=== PATIENT | male | born 1975 | race Caucasian/White ===

== ENCOUNTER 2019-10-02 00:44 | Inpatient (IN) | payer OTHER ==
[2019-10-02] MEDS ORDERED: Pantoprazole 40 MG VIAL ONE ×2 (01:13→01:14)
[2019-10-02 01:19] LABS: Hemoglobin 9.1 g/dL (14.0-18.0); Mean Corpuscular HGB CONC 32.9 g/dL (32.0-36.0); Mean Corpuscular Hemoglobin 26.2 pg (27.0-31.0); Mean Corpuscular Volume 79.7 fL (78.0-98.0); Mean Platelet Volume 6.9 fL (7.4-10.4); Platelet Count 232 thou/uL (130-400); RBC Distribution Width 16.3 % (11.5-14.5); Red Blood Cell (RBC) Count 3.48 mill/uL (4.70-6.10); White Blood Cell (WBC) Count 2.9 thou/uL (4.8-10.8)
[2019-10-02 01:29] LABS: Eosinophils 7 % (0-10); Lymphocytes 42 % (21-51); MDiff Complete? YES; Metamyelocyte 1 % (0-0); Monocytes 11 % (0-10); Neutrophil 38 % (42-75); Platelet Morphology Comment Appears Adequate
[2019-10-02] MEDS ORDERED: Dextrose 5 % And 0.9 % NaCl 1,000 ML IV SCH (03:15)
[2019-10-02 03:24] VITALS: BMI 33.5
[2019-10-02] MEDS ORDERED: Ondansetron PF 4 MG/2 ML Vial IVP PRN (03:28)
[2019-10-02] MEDS ORDERED: Ondansetron ODT 4 MG TAB PO PRN (03:28)
[2019-10-02] MEDS ORDERED: Acetaminophen 500 MG TAB PO PRN (03:28)
[2019-10-02] MEDS ORDERED: hydrALAZINE 20 MG/ML VIAL SLOW IVP PRN (03:28)
[2019-10-02] MEDS ORDERED: Lorazepam 2 MG/ML VIAL SLOW IVP PRN ×2 (03:28→07:46)
[2019-10-02] MEDS ORDERED: Sodium Chloride 0.9% (PF) 10 ML VIAL FS PRN ×2 (03:36→17:05)
[2019-10-02] MEDS ORDERED: Sucralfate 1 GM TAB PO PRN (03:58)
[2019-10-02] MEDS ORDERED: Nicotine 21 MG PATCH TD SCH (04:00)
[2019-10-02] MEDS: Multivitamins, Adult 10 ML, Folic Acid 1 MG, Thiamine HCl 100 MG in Dextrose 5 %-0.45 %... IV SCH (04:11)
[2019-10-02] MEDS: Sodium Chloride 0.9% 1,000 ML IV SCH ×3 (04:11→20:42)
--- NOTE | 2019-10-02 04:28 | HP ---
PRIMARY CARE PROVIDER: [facility], [place], [place]. CHIEF COMPLAINT: Alcohol use. HISTORY OF PRESENT ILLNESS: This is a 44-year-old male who presents to [facility] Emergency Department stating he would like to receive assistance in detoxification of alcohol. The patient admits to chronic alcoholism with last alcohol intake on 10/01/2019. The patient states he has tried several different options for alcohol detoxication including an admission in July 2019 at [facility]. The patient also went through a program in [place], [place] through the [place] system; however, states these were unsuccessful and long-term abstinence. The patient did admit to dark emesis concerning for blood in the last 24 hours. The patient also states he has had dark stools over the last 3 to 4 days. The patient admits to difficulty coming off alcohol, experiencing symptoms of withdrawal within 6-8 hours after discontinuation of the alcohol. The patient denied any fever, chills, chest pain, unilateral weakness, travel history, or family members with similar symptoms. In the emergency room, the patient underwent general evaluation with initial alcohol level noted at 366. The patient received lorazepam in the emergency room in addition to intravenous normal saline and IV Protonix. PAST MEDICAL HISTORY: 1. Chronic alcoholism. 2. Alcohol withdrawal syndrome. 3. Urinary retention. 4. Peripheral neuropathy. 5. Insomnia. 6. PTSD. PAST SURGICAL HISTORY: 1. Status post appendectomy. 2. Status post right knee surgery. 3. Status post hernia repair. 4. Status post ganglion cyst of the left arm. 5. Status post bilateral wrist surgery. PAST PSYCHIATRIC HISTORY: Positive depression, anxiety, and posttraumatic stress disorder. CURRENT MEDICATIONS: 1. Gabapentin 200 mg p.o. b.i.d. and 600 mg p.o. at bedtime. 2. Melatonin 5 mg p.o. at bedtime. 3. Valtrex 50 mg p.o. daily. 4. Omeprazole 20 mg p.o. b.i.d. 5. Propranolol 40 mg p.o. b.i.d. 6. Carafate 1 g p.o. b.i.d. p.r.n. 7. Flomax 0.4 mg p.o. daily. 8. Multivitamin 1 tablet p.o. daily. 9. Protonix 40 mg p.o. daily. 10. Vitamin B1 at 100 mg p.o. daily. FAMILY HISTORY: No inheritable diseases per the patient report. SOCIAL HISTORY: The patient resides in [facility]. Smokes up to a pack of cigarettes daily. Drinks 10+ beers daily. No illicit drug use. Accompanied by his mother in the hospital. [place] the [place]. ALLERGIES: ERYTHROMYCIN. REVIEW OF SYSTEMS: CONSTITUTIONAL: Negative for weight loss or gain, ability to conduct usual activities. SKIN: Negative for rash, itching. EYES: Negative for double vision, pain. ENT/MOUTH: Negative for nose bleeding, neck stiffness, pain, tenderness. CARDIOVASCULAR: Negative for palpitations, dyspnea on exertion, orthopnea. RESPIRATORY: Negative for shortness of breath, wheezing, cough, hemoptysis, fever or night sweats. GASTROINTESTINAL: Negative for poor appetite, abdominal pain, heartburn, nausea , vomiting, constipation, or diarrhea. GENITOURINARY: Negative for urgency, frequency, dysuria, nocturia. MUSCULOSKELETAL: Negative for pain, swelling. NEUROLOGIC/PSYCHIATRIC: Negative for anxiety, depression. ALLERGY/IMMUNOLOGIC: Negative for skin rash, bleeding tendency. Otherwise negative except as stated per HPI. PHYSICAL EXAMINATION: VITAL SIGNS: On admission, blood pressure 131/74, pulse 124, respiratory rate 20, temperature 98.7 degrees Fahrenheit, O2 saturation 95% on room air. GENERAL APPEARANCE: This is a 44-year-old male, alert and oriented x3 , pleasant, responsive, in no acute distress. HEENT: Pupils are equal, round, reactive to light and accommodation. Extraocular muscles are intact. No scleral icterus. No conjunctival injection. Nares are patent. OP is clear. Teeth in fair repair. NECK: Supple. No cervical adenopathy. No thyromegaly. No carotid bruits. No JVD appreciated. Cervical spine with full active and passive range of motion. No meningeal signs noted. CHEST: Lungs are clear to auscultation bilaterally. CARDIOVASCULAR: S1, S2 with tachycardia. No murmur, rub, or gallop appreciated. ABDOMEN: Obese, soft, nontender, and nondistended. Bowel sounds are positive in all 4 quadrants. There is no hepatosplenomegaly. No abdominal bruits. No rebound or guarding appreciated. EXTREMITIES: Warm and dry with fair turgor. No clubbing, cyanosis, or asymmetric edema appreciated. Pulses are palpable distally at the dorsalis pedis, posterior tibial, and popliteal arteries bilaterally. Capillary refill less than 2 seconds. NEUROLOGIC: Cranial nerves 2 through 12 are grossly intact. No focal or lateralizing signs appreciated. PERTINENT LABORATORY AND X-RAY FINDINGS: Basic metabolic profile within normal limits. Magnesium level 2.2, AST 109, ALT of 91, alkaline phosphatase 80. Troponin I negative x1. Albumin 4.5. CBC showed a white blood cell count 2.9, hemoglobin 9.1, hematocrit 28, MCV 80, platelet count 232 with 38% neutrophils. Plasma alcohol level 366. EKG dated 10/01/2019, by my interpretation shows sinus tachycardia with heart rates in the 120s. Normal R-wave progression noted in the precordial leads. Normal axis. No acute ST-T wave changes appreciated. ASSESSMENT/PLAN: 1. Acute alcohol intoxication. The patient will be admitted to the telemetry unit. We will continue to monitor for alcohol withdrawal syndrome. Continue Ativan 2 mg IV q.4 hours p.r.n. withdrawal symptoms. Continue banana bag at 125 mL/h. 2. Chronic alcoholism. Consult Case Management for inpatient alcohol detoxification facilities. See #1 above. 3. Gastrointestinal bleed. Suspected given patient's presentation. Continue serial hemoglobin monitoring. Protonix 40 mg IV q.12 hours. Consult GI Service for evaluation. Check stool guaiac. 4. Sinus tachycardia. Suspect multifactorial including possible gastrointestinal bleed. Continue IV fluids as outlined previously. Telemetry monitoring. 5. Peripheral neuropathy. Continue gabapentin and monitor clinical response. 6. Prophylaxis. Sequential compression devices while in bed. Protonix 40 mg IV b.i.d. 7. Code status is full. Surrogate medical decision maker is the patient's mother. Job ID: [id number] [facility]
[2019-10-02 07:03] LABS: Hemoglobin 8.9 g/dL (14.0-18.0); Mean Corpuscular HGB CONC 32.6 g/dL (32.0-36.0); Mean Corpuscular Hemoglobin 26.2 pg (27.0-31.0); Mean Corpuscular Volume 80.6 fL (78.0-98.0); Mean Platelet Volume 7.3 fL (7.4-10.4); Platelet Count 249 thou/uL (130-400); RBC Distribution Width 16.4 % (11.5-14.5); Red Blood Cell (RBC) Count 3.38 mill/uL (4.70-6.10); White Blood Cell (WBC) Count 3.2 thou/uL (4.8-10.8)
[2019-10-02 07:18] LABS: ALT (SGPT) 64 U/L (8-55); AST (SGOT) 72 U/L (5-34); Albumin 3.8 g/dL (3.5-5.0); Alkaline Phosphatase 69 U/L (40-110); Anion Gap 14 mmol/L (10-20); BUN (Urea Nitrogen) 8 mg/dL (8.9-20.6); Bilirubin, Total 0.4 mg/dL (0.2-1.2); Calc. Creatinine Clearance 201 mL/min (70-130); Calcium 7.9 mg/dL (7.8-10.44); Carbon Dioxide 26 mmol/L (22-29); Chloride 106 mmol/L (98-107); Estimated GFR-MDRD Greater than 90; Globulin 2.9 g/dL (2.4-3.5); Glucose 114 mg/dL (70-105); Potassium 3.6 mmol/L (3.5-5.1); Protein, Total 6.7 g/dL (6.0-8.3); Sodium 142 mmol/L (136-145)
[2019-10-02 08:05] LABS: Eosinophils 2 % (0-10); Hypochromia SLIGHT = 6-15 cells (100X) (0-5/hpf); Large Platelets SLIGHT; Lymphocytes 48 % (21-51); MDiff Complete? YES; Monocytes 13 % (0-10); Neutrophil 36 % (42-75); Platelet Morphology Comment Appears Adequate
[2019-10-02] MEDS: Propranolol 40 MG TAB PO SCH ×2 (08:36→20:42)
[2019-10-02] MEDS: Naltrexone Hcl [Naltrexone Hcl] 50 MG PO SCH (08:36)
[2019-10-02] MEDS: Lorazepam 1 MG TAB PO PRN ×2 (08:36→12:36)
[2019-10-02] MEDS: Finasteride 5 MG TAB PO SCH (08:36)
[2019-10-02] MEDS: chlordiazePOXIDE HCl 25 MG CAP PO SCH ×3 (08:36→20:42)
[2019-10-02] MEDS: Tamsulosin HCl 0.4 MG CAP PO SCH (08:36)
[2019-10-02] MEDS: Gabapentin 100 MG CAP PO SCH ×2 (08:36→11:49)
[2019-10-02] MEDS ORDERED: Pantoprazole 40 MG VIAL IVP SCH (09:00)
--- NOTE | 2019-10-02 16:55 | CON ---
DATE OF CONSULTATION: 10/02/2019 CHIEF COMPLAINT: Dark stools and alcohol withdrawal. HISTORY OF PRESENT ILLNESS: Mr. Fields is a 44-year-old , who presented to the emergency room today wanting to detox. He has been drinking half a gallon of whiskey or so of alcohol daily. Whenever he goes a few hours without drinking, he gets the shakes so badly and he cannot completely stop alcohol. He was hospitalized at the [place] in [place] 5 or 6 months ago. He had some coffee-grounds emesis at that time and underwent upper endoscopy and was told that he had an ulcer and some red spots in his stomach. He reports a biopsy was done for H pylori, but is unsure of the results. He was never treated for H pylori. He also had a flex sig done at that time and was told that he had some hemorrhoids. He also has had some intermittent nausea and vomiting with some dark material. He reports a week ago he went several days with dark stools for 3 or 4 times per day and that stopped two days ago. He has had no diarrhea or constipation otherwise. No weight changes. No fever. No chest pain or shortness of breath. PAST MEDICAL HISTORY: Alcohol abuse and history of DTs, PTSD, insomnia, peripheral neuropathy, history of gastric ulcer per his report. PAST SURGICAL HISTORY: Appendectomy, knee surgery, hernia repair, cyst removed from the left wrist. FAMILY HISTORY: Negative for GI malignancy. SOCIAL HISTORY: He smokes up to a pack a day. He drinks half a gallon of whiskey per day. He drinks beer as well. No drugs. He is . He has a 13-year-old daughter. He is a [place] . ALLERGIES: ERYTHROMYCIN. MEDICATIONS PRIOR TO ADMISSION: Omeprazole 20 mg daily. He reports he takes this may be 2 times per week if he takes it. He states that he is on multiple other medications for PTSD, which he takes about as often as he takes the pantoprazole. He states that he stays up all night drinking and then the next day pretty much forgets to take most of his medications. REVIEW OF SYSTEMS: Negative x10 systems reviewed except as stated in the history of present illness. PHYSICAL EXAMINATION: VITAL SIGNS: Temperature 98.1, pulse 90, blood pressure 142/96. GENERAL: He is in no acute distress. Alert and oriented x3. HEENT: Eyes have no scleral icterus. Oropharynx is clear without lesions. LYMPH NODES: No cervical or supraclavicular lymphadenopathy. LUNGS: Clear to auscultation bilaterally. HEART: Regular rate and rhythm without murmur. ABDOMEN: Soft, nontender, and nondistended. Bowel sounds are present. NEUROLOGIC: He does have a tremor, more with his right hand. EXTREMITIES: No lower extremity edema. RECTAL: Reveals light brown stool in the rectal vault. LABORATORY DATA: White blood cell count 3.2, hemoglobin 8.9, platelets 249. Creatinine 0.75, bilirubin 0.4. AST 72, ALT 64, alkaline phosphatase 69. Lipase 121. IMPRESSION: 1. Acute alcohol intoxication. Last night, his plasma alcohol was 366. 2. Alcohol withdrawal syndrome. He has tremors now. He has had delirium tremens in the past. He is wanting to stop alcohol now. 3. Dark stools last week. Currently, he has a light brown, not bloody stool. Given the reported gastric ulcer 5 to 6 months ago and anemia, followup endoscopy should be performed. However, there is no urgency to this as he has no overt bleeding and we should wait until after he gets through delirium tremens to do this, and that could potentially be done outpatient. 4. Anemia. He has slightly microcytic anemia despite alcohol use. We will check iron studies. RECOMMENDATIONS: 1. Proton pump inhibitor. This can be given orally daily at this point as there are no signs of overt bleeding. 2. We will advance to a regular diet. 3. Plan followup EGD in the future in light of the reported history of gastric ulcer. If he is iron deficient, then he should have a full colonoscopy as well. 4. Withdrawal precautions for DTs. 5. Multiple vitamin with folate and thiamine. 6. Request records from last endoscopy at the [facility]. Job ID: [id number]
[2019-10-02] MEDS: Gabapentin 300 MG CAP PO SCH (20:42)
[2019-10-02] MEDS: Melatonin 3 MG TAB PO SCH (20:42)
[2019-10-02] MEDS: Nicotine 21 MG PATCH TD SCH (20:47)
[2019-10-03] MEDS: Multivitamins, Adult 10 ML, Folic Acid 1 MG, Thiamine HCl 100 MG in Dextrose 5 %-0.45 %... IV SCH (04:24)
[2019-10-03] MEDS: Sodium Chloride 0.9% 1,000 ML IV SCH (04:28)
[2019-10-03 05:25] LABS: Eosinophils 3 % (0-10); Hypochromia SLIGHT = 6-15 cells (100X) (0-5/hpf); Lymphocytes 44 % (21-51); MDiff Complete? YES; Mean Corpuscular HGB CONC 31.4 g/dL (32.0-36.0); Mean Corpuscular Hemoglobin 25.4 pg (27.0-31.0); Mean Platelet Volume 7.4 fL (7.4-10.4); Metamyelocyte 1 % (0-0); Monocytes 9 % (0-10); Neutrophil 43 % (42-75); Platelet Count 246 thou/uL (130-400); Platelet Morphology Comment Appears Adequate; RBC Distribution Width 16.2 % (11.5-14.5); Red Blood Cell (RBC) Count 3.54 mill/uL (4.70-6.10)
[2019-10-03] MEDS ORDERED: 1/2 NS w/KCL 20 mEq 1,000 ML IV SCH (08:30)
[2019-10-03] MEDS: chlordiazePOXIDE HCl 25 MG CAP PO SCH ×3 (08:56→20:37)
[2019-10-03] MEDS: Propranolol 40 MG TAB PO SCH ×2 (08:57→20:38)
[2019-10-03] MEDS: Tamsulosin HCl 0.4 MG CAP PO SCH (08:57)
[2019-10-03] MEDS: Gabapentin 100 MG CAP PO SCH ×2 (08:57→11:17)
[2019-10-03] MEDS: Finasteride 5 MG TAB PO SCH (08:57)
[2019-10-03] MEDS: Naltrexone Hcl [Naltrexone Hcl] 50 MG PO SCH (08:59)
--- NOTE | 2019-10-03 09:00 | PRG ---
DATE OF SERVICE: 10/03/2019 SUBJECTIVE: The patient seen at bedside. Complains of shakiness and tremors with activity. Also as per the patient, symptoms than now. Also being complaining of vomiting this morning as the patient but dark-tinged. Denies any fever, chest pain, or shortness of breath. Not in distress clinically. Says he had dark-colored bowel movement last week. OBJECTIVE: VITAL SIGNS: Blood pressure 136/77, temperature 97.8, pulse 84, respiration 18, and oxygen saturation 97%. GENERAL: The patient lying in bed comfortably, not in distress. HEENT: Conjunctivae normal. Oral mucosa moist. NECK: Supple. No JVD. No lymphadenopathy. Chest: Normal vesicular breathing. HEART: Sounds normal. ABDOMEN: Soft. EXTREMITIES: Negative edema of feet. No rash. No cyanosis. Tremors on extension of hands. LABORATORY DATA: CBC today; hemoglobin 9.0, baseline hemoglobin 9.1, platelet 246, and white blood cell 3.0. IMPRESSION: 1. History of EtOH abuse with possible alcohol withdrawal. Continue alcohol withdrawal protocol. Continue banana bag. Continue fluids. Librium changed to q.6 hourly from q.3. We will continue to monitor clinically. If the patient currently not in DTs, if the patient's symptoms gets worse, will transfer to IMC or ICU. 2. Questionable gastrointestinal bleed. The patient's currently hemoglobin is stable. GI evaluation appreciated. Continue diet. Monitor hemoglobin, currently stable. We will check hemoglobin in the morning. Continue PPI. 3. History of EtOH abuse. Case management consulted for alcohol rehab referral. 4. Deep venous thrombosis and gastrointestinal prophylaxis. PLAN: Discussed with the patient and nursing staff. Job ID: [id number]
[2019-10-03] MEDS: Lorazepam 1 MG TAB PO PRN (11:18)
--- NOTE | 2019-10-03 14:18 | PRG ---
DATE OF SERVICE: 10/03/2019 SUBJECTIVE: Mr. Fields continues to have the shakes. He was unable to eat his breakfast with a fork. He had a brown bowel movement last night. PHYSICAL EXAMINATION: VITAL SIGNS: Temperature 98.6, pulse 85, and blood pressure 118/74. GENERAL: He is in no acute distress. Alert and oriented x3. LUNGS: Clear to auscultation bilaterally. HEART: Regular rate and rhythm without murmur. ABDOMEN: Soft, nontender, nondistended. Bowel sounds are present. EXTREMITIES: No lower extremity edema. LABORATORY DATA: White blood cell count 3.0, hemoglobin 9.0, and platelets 246. Creatinine 0.75, bilirubin 0.4, AST 72, ALT 64, alkaline phosphatase 69, and lipase 121. IMPRESSION: 1. Alcohol withdrawal with ongoing tremors. His last drink was the night before last. He has history of delirium tremens with hallucinations. 2. Anemia and reported melena. He had light brown stool by rectal exam. His hemoglobin remained stable. RECOMMENDATIONS: Check iron studies. If he is iron deficient, he should undergo EGD and colonoscopy. This would be done after resolution of acute alcohol withdrawal. Alternatively, if he has iron deficiency and his hemoglobin remains stable without ongoing signs of overt bleeding, he should potentially undergo these procedures as an outpatient. Job ID: [id number]
[2019-10-03] MEDS: Melatonin 3 MG TAB PO SCH (20:38)
[2019-10-03] MEDS: Gabapentin 300 MG CAP PO SCH (20:38)
[2019-10-03] MEDS: Nicotine 21 MG PATCH TD SCH (20:39)
[2019-10-04] MEDS: chlordiazePOXIDE HCl 25 MG CAP PO SCH ×4 (04:30→21:51)
[2019-10-04] MEDS: Multivitamins, Adult 10 ML, Folic Acid 1 MG, Thiamine HCl 100 MG in Dextrose 5 %-0.45 %... IV SCH (04:30)
[2019-10-04 05:35] LABS: #Basophils 0.1 thou/uL (0.0-0.2); #Eosinphils 0.2 thou/uL (0.0-0.7); #Lymphocytes 1.2 thou/uL (1.20-3.40); #Monocytes 0.5 thou/uL (0.11-0.59); #Neutrophils 1.7 thou/uL (1.40-6.50); %Basophils 2.1 % (0.0-1.0); %Eosinophils 5.5 % (0.0-10.0); %Lymphocytes 32.7 % (21.0-51.0); %Monocytes 12.3 % (0.0-10.0); %Neutrophils 47.4 % (42.0-75.0); Hemoglobin 9.3 g/dL (14.0-18.0); Mean Corpuscular HGB CONC 31.4 g/dL (32.0-36.0); Mean Corpuscular Hemoglobin 25.5 pg (27.0-31.0); Mean Corpuscular Volume 81.2 fL (78.0-98.0); Platelet Count 272 thou/uL (130-400); RBC Distribution Width 16.4 % (11.5-14.5); Red Blood Cell (RBC) Count 3.66 mill/uL (4.70-6.10); White Blood Cell (WBC) Count 3.6 thou/uL (4.8-10.8)
[2019-10-04 05:51] LABS: ALT (SGPT) 47 U/L (8-55); AST (SGOT) 44 U/L (5-34); Albumin 3.9 g/dL (3.5-5.0); Alkaline Phosphatase 67 U/L (40-110); Anion Gap 11 mmol/L (10-20); BUN (Urea Nitrogen) 8 mg/dL (8.9-20.6); Bilirubin, Total 0.5 mg/dL (0.2-1.2); Calc. Creatinine Clearance 179 mL/min (70-130); Calcium 8.9 mg/dL (7.8-10.44); Carbon Dioxide 25 mmol/L (22-29); Chloride 105 mmol/L (98-107); Estimated GFR-MDRD Greater than 90; Globulin 2.9 g/dL (2.4-3.5); Glucose 116 mg/dL (70-105); Iron 15 ug/dL (65-175); Iron Binding Capacity, Total 408 mcg/dL (261-462); Potassium 3.3 mmol/L (3.5-5.1); Protein, Total 6.8 g/dL (6.0-8.3); Sodium 138 mmol/L (136-145)
[2019-10-04] MEDS: Tamsulosin HCl 0.4 MG CAP PO SCH (09:13)
[2019-10-04] MEDS: Propranolol 40 MG TAB PO SCH ×2 (09:13→21:50)
[2019-10-04] MEDS: Gabapentin 100 MG CAP PO SCH ×2 (09:13→11:45)
[2019-10-04] MEDS: Naltrexone Hcl [Naltrexone Hcl] 50 MG PO SCH (09:13)
[2019-10-04] MEDS: Finasteride 5 MG TAB PO SCH (09:13)
[2019-10-04] MEDS ORDERED: Potassium Chloride 20 MEQ TAB PO SCH (10:00)
[2019-10-04] MEDS ORDERED: Docusate 100 MG CAP PO SCH (10:15)
[2019-10-04] MEDS ORDERED: Ferrous Sulfate 325 MG TAB PO SCH (10:15)
--- NOTE | 2019-10-04 10:51 | PRG ---
DATE OF SERVICE: 10/04/2019 SUBJECTIVE: Mr. Fields continues to have the shakes. He has no abdominal pain or nausea or vomiting. OBJECTIVE: VITAL SIGNS: Temperature is 97.8, pulse 70, blood pressure 111/77. GENERAL: He is in no acute distress. Alert and oriented x3. LUNGS: Clear to auscultation bilaterally. HEART: Regular rate and rhythm without murmur. ABDOMEN: Soft, nontender, nondistended. Bowel sounds are present. EXTREMITIES: No lower extremity edema. He has significant tremors of his hands. LABORATORY DATA: White blood cell count 3.6, hemoglobin 9.3, platelets 272, creatinine 0.83. Bilirubin 0.5, AST 44, ALT 47, alkaline phosphatase 67, ferritin 23. Iron 15. TIBC 408. IMPRESSION: 1. Iron deficiency anemia. He just had EGD at the [place] on August 19, which showed grade D severe ulcerative esophagitis. This is the likely source for his anemia. He had a flexible sigmoidoscopy at the same time that showed sigmoid diverticulosis and internal hemorrhoids. He has not been compliant with proton pump inhibitor since that procedure. He has also had ongoing alcohol abuse and smoking. The esophagitis is most likely source for any bleeding and anemia at this point. RECOMMENDATIONS: 1. Proton pump inhibitor. This can be changed to oral twice daily dosing. 2. Alcohol cessation and smoking cessation. 3. Follow up in GI clinic in a month. He can plan for repeat endoscopy at that time to verify healing of the esophagitis and rule out Miramontes's. He did have a biopsy from the esophagus performed at the [place] last month and I have requested that report. When he returns for followup endoscopy, really he should undergo full colonoscopy given the iron deficiency anemia. He just had a flexible sigmoidoscopy to the transverse colon at the [place]. 4. He will follow up in GI clinic in a month to schedule EGD and colonoscopy and maintain outpatient oral proton pump inhibitor until then. I will sign off for now. Please call if GI can be of assistance. Job ID: [id number]
[2019-10-04] MEDS: Lorazepam 1 MG TAB PO PRN ×2 (13:18→23:18)
--- NOTE | 2019-10-04 19:37 | PDOC.HOSPP ---
- Subjective Encounter Date: 10/04/19 Encounter Time: 11:30 Subjective: pt up in bed feels anxious - Objective Vital Signs & Weight: Vital Signs (12 hours) Temp Pulse Resp BP BP BP Pulse Ox 10/04/19 16:00 98.0 F 82 16 122/84 98 10/04/19 12:15 121/78 10/04/19 11:36 96.7 F L 77 16 121/78 99 10/04/19 09:05 111/77 99 10/04/19 09:00 97.8 F 70 16 111/77 95 Weight Weight 242 lb 12.8 oz I&O: 10/03/19 10/04/19 10/05/19 06:59 06:59 06:59 Intake Total 750 960 Balance 750 960 Result Diagrams: 10/04/19 05:22 10/04/19 05:22 Hospitalist ROS - Review of Systems Cardiovascular: denies: chest pain, palpitations, orthopnea, paroxysmal noc. dyspnea, edema, light headedness, other Gastrointestinal: denies: nausea, vomiting, abdominal pain, diarrhea, constipation, melena, hematochezia, other Genitourinary: denies: dysuria, frequency, incontinence, hematuria, retention, other - Medication Medications: Active Medications Generic Name Dose Route Start Last Admin Trade Name Freq PRN Reason Stop Dose Admin Chlordiazepoxide HCl 25 mg 10/03/19 09:00 10/04/19 16:02 Librium PO 25 mg Q6H IDANIA Administration Finasteride 5 mg 10/02/19 09:00 10/04/19 09:13 Proscar PO 5 mg DAILY IDANIA Administration Gabapentin 200 mg 10/02/19 09:00 10/04/19 11:45 Neurontin PO 200 mg 0900,1200 IDANIA Administration Gabapentin 600 mg 10/02/19 21:00 10/03/19 20:38 Neurontin PO 600 mg QPM IDANIA Administration Multivitamins 10 ml/ Folic 1,011.2 mls @ 125 mls/hr 10/02/19 04:30 10/04/19 04:30 Acid 1 mg/ Thiamine HCl 100 mg IV 1,011.2 mls / Dextrose/Sodium Chloride Q24HR IDANIA Administration Lorazepam 1 mg 10/02/19 07:44 10/04/19 13:18 Ativan PO 1 mg Q4H PRN Administration Anxiety/Agitation Melatonin 6 mg 10/02/19 21:00 10/03/19 20:38 Melatonin PO 6 mg HS IDANIA Administration Nicotine 21 mg 10/02/19 21:00 10/03/19 20:39 Nicoderm Patch TD 21 mg Q24HR IDANIA Administration Ondansetron HCl 4 mg 10/02/19 03:28 10/04/19 14:43 Zofran Odt PO 4 mg Q6H PRN Administration Nausea/Vomiting Pantoprazole Sodium 40 mg 10/02/19 21:00 10/04/19 09:13 Protonix PO 40 mg BID IDANIA Administration Naltrexone Hcl [ 0 each 10/02/19 09:00 10/04/19 09:13 Naltrexone Hcl] 50 PO 1 each Mg DAILY IDANIA Administration Propranolol HCl 40 mg 10/02/19 09:00 10/04/19 09:13 Inderal PO 40 mg BID IDANIA Administration Sodium Chloride 10 ml 10/02/19 21:00 10/04/19 09:12 Flush - Normal Saline IVF Not Given Q12HR IDANIA Tamsulosin HCl 0.4 mg 10/02/19 09:00 10/04/19 09:13 Flomax PO 0.4 mg DAILY IDANIA Administration - Exam Heart: negative: RRR, no murmur, no gallops, no rubs, normal peripheral pulses, irregular, diminshed peripheral pulses, murmur present, II/IV, III/IV Respiratory: negative: CTAB, no wheezes, no rales, no ronchi, normal chest expansion, no tachypnea, normal percussion, rales, rhonchi, tachypneic, wheezes Gastrointestinal: negative: soft, non-tender, non-distended, normal bowel sounds , no palpable masses, no hepatomegaly, no splenomegaly, no bruit, no guarding, no rigidity, tender to palpation, distended, diminished bowl sounds, voluntary guarding Hosp A/P (1) Alcohol withdrawal Code(s): F10.239 - ALCOHOL DEPENDENCE WITH WITHDRAWAL, UNSPECIFIED Status: Acute Qualifiers: (2) Depression Code(s): F32.9 - MAJOR DEPRESSIVE DISORDER, SINGLE EPISODE, UNSPECIFIED Status : Acute (3) GI bleed Code(s): K92.2 - GASTROINTESTINAL HEMORRHAGE, UNSPECIFIED Status: Acute - Plan hh is stable, will monitor for one more day and then discharge him home in am. spoke with case management who [facility] get [facility] if he wants inpatient detox. He has been advised against drinking.
[2019-10-04] MEDS: Gabapentin 300 MG CAP PO SCH (21:49)
[2019-10-04] MEDS: Melatonin 3 MG TAB PO SCH (21:49)
[2019-10-04] MEDS: Docusate 100 MG CAP PO SCH (21:50)
[2019-10-04] MEDS: Nicotine 21 MG PATCH TD SCH (21:50)
[2019-10-05] MEDS: Multivitamins, Adult 10 ML, Folic Acid 1 MG, Thiamine HCl 100 MG in Dextrose 5 %-0.45 %... IV SCH (03:40)
[2019-10-05] MEDS: chlordiazePOXIDE HCl 25 MG CAP PO SCH ×2 (03:40→09:12)
[2019-10-05 06:08] LABS: Band 2 % (5-11); Eosinophils 1 % (0-10); Hemoglobin 9.4 g/dL (14.0-18.0); Hypochromia SLIGHT = 6-15 cells (100X) (0-5/hpf); Lymphocytes 26 % (21-51); MDiff Complete? YES; Mean Corpuscular HGB CONC 32.1 g/dL (32.0-36.0); Mean Corpuscular Hemoglobin 26.1 pg (27.0-31.0); Mean Corpuscular Volume 81.3 fL (78.0-98.0); Mean Platelet Volume 7.8 fL (7.4-10.4); Monocytes 4 % (0-10); Neutrophil 67 % (42-75); Platelet Count 280 thou/uL (130-400); Platelet Morphology Comment Appears Adequate; RBC Distribution Width 16.5 % (11.5-14.5)
[2019-10-05 07:37] VITALS: TEMP 97.4
[2019-10-05] MEDS ORDERED: Ferrous Sulfate 325 MG TAB PO SCH (08:00)
[2019-10-05] MEDS: Docusate 100 MG CAP PO SCH (09:12)
[2019-10-05] MEDS: Finasteride 5 MG TAB PO SCH (09:12)
[2019-10-05] MEDS: Gabapentin 100 MG CAP PO SCH ×2 (09:13→12:23)
[2019-10-05] MEDS: Tamsulosin HCl 0.4 MG CAP PO SCH (09:13)
[2019-10-05] MEDS: Propranolol 40 MG TAB PO SCH (09:13)
[2019-10-05] MEDS: Naltrexone Hcl [Naltrexone Hcl] 50 MG PO SCH (09:13)
[2019-10-05 11:58] VITALS: BP 109/71
--- NOTE | 2019-10-05 13:54 | DIS ---
DATE OF ADMISSION: 10/02/2019 DATE OF DISCHARGE: 10/05/2019 DISCHARGE DIAGNOSES: 1. Alcohol withdrawal. 2. Depression. 3. Possible gastrointestinal bleed. HOSPITAL COURSE: The patient is a 44-year-old male, who initially presented to the hospital on 10/03/2019 with complaints of alcohol abuse and he also had mention during his admission that possible he had some GI bleed. He was seen by GI Services. His H and H continued to remain stable. The patient was seen by GI, who recommended to follow up as an outpatient. There were some concerns of possible this patient has had esophagitis with possible Miramontes's. However, he will need repeat EGD as an outpatient. Recommended to continue the PPI for twice a day in conjunction with the Carafate and cessation from alcohol, which I have talked with the patient. Given the fact that the patient is at [facility], I have asked him to follow up with the [facility] for resources for inpatient detox. He currently is asymptomatic. He will need to follow up with GI as I mentioned for an EGD and a flex sigmoid. DISCHARGE MEDICATIONS: His medications will be as of the followin. Colace 100 mg b.i.d. 2. Iron 325 daily. 3. Protonix 40 mg b.i.d. 4. Thiamine 100 mg daily. 5. Flomax 0.4 daily. 6. Inderal 40 mg b.i.d. 7. Gabapentin 2 caps twice a day. 8. Multivitamin one p.o. daily. 9. Melatonin 5 mg at bedtime. 10. Carafate 1 g p.o. b.i.d. p.r.n. 11. Finasteride 5 mg p.o. daily. PHYSICAL EXAMINATION: VITAL SIGNS: Temperature 97.4, pulse 70, respirations 18, 94% on room air, blood pressure 106/67. GENERAL: He is awake, alert, and oriented x3. Does not appear in distress. CV: S1, S2 present. No murmurs, rubs, or gallops. ABDOMEN: Soft and nontender. Bowel sounds are present x2. Again, he will be discharged home. Follow up with his primary. Job ID: [id number]
--- NOTE | 2019-10-06 17:46 | PQF ---
DREW PATINO KARISHMA [id number] CLINICAL DOCUMENTATION CLARIFICATION FORM: POST DISCHARGE Addendum to original discharge summary date: ____ Late entry note date: __ DATE:10/06/19 ATTN: Adilia Payne Please exercise your independent, professional judgment in responding to the clarification form. Clinical indicators are provided on the bottom of this form for your review Can you please further specify the etiology of GI Bleed based on the clinical indicators below? Please check appropriate box(s): [ ] Ulcerative esophagitis [ ] Miramontes's esophagitis [ ] Esophagitis unspecified [ ] GI Bleeding unspecified [ ] Other diagnosis [x ] Unable to determine In addition, please specify: Present on Admission (POA): [ ] Yes [ ] No [ x ] Unable to determine For continuity of documentation, please document condition throughout progress notes and discharge summary. Thank You. CLINICAL INDICATORS - SIGNS / SYMPTOMS / LABS ED physician record 10/02 p.4- hematemesis HP 10/02 p.3-"gastrointestinal bleed" PN 10/04 p.1- "he just had EGD at the [facility] on August 19, which showed grade D severe ulcerative esophagitis" PN 10/04 p.1- "The esophagitis is most likely source for any bleeding and anemia at this point" DS 10/05 p.1- "there were some concerns of possible this patient has had esophagitis with possible Miramontes's" RISK FACTORS Chronic alcoholism-HP 10/02 p.1 Anemia- Consult Dr. Burciaga pg.2 Dark Stool last week- Consult Dr. Burciaga pg.2 TREATMENTS: GI Consult- Dr. Burciaga 10/02 I V fluids- MAR 10/02 Protonix 40 mg IV 12 hours-HP 10/02 p.3 check stool guaiac- HP 10/02 p.3 (This form is maintained as a part of the permanent medical record) 2015 [employer] All Rights Reserved [email or web address] [not provided] MTDD
== END 2019-10-05 13:40 | disposition home or self-care (01) | DRG 897 ==
LOC: ERS 00:44 → 2NO 03:09
PROVIDERS: ADMIT Family Medicine; ATTEND Family Medicine
PROC: HZ2ZZZZ Detoxification Services for Substance Abuse Treatment (ICD-10-PCS; principal; 2019-10-02)
DX: F10.239 Alcohol dependence with withdrawal, unspecified (principal); K92.2 Gastrointestinal hemorrhage, unspecified; G62.9 Polyneuropathy, unspecified; G47.00 Insomnia, unspecified; F43.10 Post-traumatic stress disorder, unspecified; F32.9 Major depressive disorder, single episode, unspecified; F41.9 Anxiety disorder, unspecified; F17.210 Nicotine dependence, cigarettes, uncomplicated; F10.229 Alcohol dependence with intoxication, unspecified; K22.70 Barrett's esophagus without dysplasia; D50.9 Iron deficiency anemia, unspecified; Z79.899 Other long term (current) drug therapy; Z90.49 Acquired absence of other specified parts of digestive tract; Z88.1 Allergy status to other antibiotic agents
CPT/HCPCS: 36415; 80053; 82274; 82728; 83540; 83550; 83690; 83735; 85025; 96361; 96374; C9113; J3411; J3480; J7042; Q0162

== ENCOUNTER 2020-02-13 21:12 | Inpatient (IN) | payer OTHER ==
[~2020-02-13 21:12] MED LIST: Iopamidol 370 76% 100 ML VIAL ONE
[2020-02-13] MEDS ORDERED: Ondansetron PF 4 MG/2 ML Vial ONE (21:40)
[2020-02-13] MEDS ORDERED: Morphine 4 MG/ML VIAL ONE ×2 (21:40→22:51)
[2020-02-13 21:50] LABS: Mean Corpuscular HGB CONC 31.5 g/dL (32.0-36.0); Mean Corpuscular Hemoglobin 22.2 pg (27.0-31.0); Mean Corpuscular Volume 70.7 fL (78.0-98.0); Platelet Count 395 thou/uL (130-400); Red Blood Cell (RBC) Count 4.94 mill/uL (4.70-6.10); White Blood Cell (WBC) Count 8.9 thou/uL (4.8-10.8)
[2020-02-13 21:55] LABS: Bilirubin Small (Negative); Blood, Urine Negative (Negative); Clarity Clear (Clear); Glucose, Urine (Dipstick) Negative (Negative); Leukocyte Negative (Negative); Nitrite Negative (Negative); Protein, Urine (Dipstick) 100 mg/dL (Neg-Trace); Urobilinogen 0.2 mg/dL (Less than 2)
[2020-02-13 21:59] LABS: Bacteria/HPF None Seen HPF (None Seen); RBC/HPF 0-3 HPF (0-3); Squamous Epithelial 0-3 HPF (0-3); WBC/HPF 0-3 HPF (0-3)
--- NOTE | 2020-02-13 22:06 | RAD ---
Portable frontal chest radiograph: 02/13/2020 COMPARISON: 06/19/2016 HISTORY: Chest pain FINDINGS: Lungs are clear. Heart and mediastinal contours appear within normal limits. IMPRESSION: No acute findings.
[2020-02-13 22:09] LABS: #Basophils 0.1 thou/uL (0.0-0.2); #Monocytes 0.9 thou/uL (0.11-0.59); #Neutrophils 6.9 thou/uL (1.40-6.50); %Basophils 0.9 % (0.0-1.0); %Eosinophils 0.5 % (0.0-10.0); %Lymphocytes 11.4 % (21.0-51.0); %Monocytes 9.6 % (0.0-10.0); %Neutrophils 77.5 % (42.0-75.0); Hypochromia SLIGHT = 6-15 cells (100X) (0-5/hpf); MDiff Complete? YES; Microcytosis SLIGHT = 6-15 cells (100X) (0-5/hpf); Platelet Morphology Comment Appears Adequate
[2020-02-13 22:22] LABS: ALT (SGPT) 56 U/L (8-55); AST (SGOT) 77 U/L (5-34); Albumin 4.6 g/dL (3.5-5.0); Alkaline Phosphatase 97 U/L (40-110); Anion Gap 19 mmol/L (10-20); BUN (Urea Nitrogen) 6 mg/dL (8.9-20.6); Bilirubin, Total 0.8 mg/dL (0.2-1.2); CK (CPK) 168 U/L (30-200); Calc. Creatinine Clearance 0 mL/min (70-130); Calcium 9.8 mg/dL (7.8-10.44); Carbon Dioxide 21 mmol/L (22-29); Chloride 97 mmol/L (98-107); Estimated GFR-MDRD Greater than 90; Globulin 4.1 g/dL (2.4-3.5); Glucose 151 mg/dL (70-105); Potassium 3.4 mmol/L (3.5-5.1); Protein, Total 8.7 g/dL (6.0-8.3); Sodium 134 mmol/L (136-145)
--- NOTE | 2020-02-13 22:26 | CT ---
CT angiogram chest and abdomen: 02/13/2020 COMPARISON: None HISTORY: Chest pain TECHNIQUE: Axial CT imaging at 2.5 mm intervals through the chest and abdomen with IV contrast using CT angiogram protocol. Coronal and sagittal 3-D reformatted imaging obtained. FINDINGS: No lymphadenopathy noted within the chest. The lung parenchyma demonstrates no acute findings. No endobronchial lesion is appreciated. No evidence for aneurysm or dissection is seen involving the thoracic aorta. The osseous structures o f the chest demonstrate no acute findings. The liver is enlarged and diffusely hypodense, consistent with severe hepatic steatosis. Limited asse ssment of the gallbladder appears grossly unremarkable. The spleen is unremarkable as are the adrenal glands and the kidneys. The pancreas is ill-defined with prominent peripancreatic fat strandi ng and ill-defined peripancreatic free fluid. This free fluid is seen inferior to the stomach, extending into the left upper quadrant, adjacent to the gastric fundus and splenic hilum. The pancrea s enhances normally. There is no evidence for dissection or aneurysm of the abdominal aorta. Arterial branches of the abdo jossie aorta are unremarkable. Limited assessment of the bowel demonstrates no focal area of inflammatory change. Review of the osseous structures of the abdomen demonstrate bilateral L5 pars de fects. No worrisome lytic or blastic bone lesion. IMPRESSION: 1. No evidence for aneurysm or dissection of the abdominal or thoracic aorta. 2. Prominent peripancreatic fat stranding and associated fluid suspicious for acute pancreatitis. 3. Enlarged fatty liver.
[2020-02-13 22:27] LABS: Lipase 6379 U/L (8-78)
[2020-02-13 23:07] LABS: Alcohol 62 mg/dL (Less than 10); Triglycerides 177 mg/dL (Less than 150)
[2020-02-13] MEDS ORDERED: Lorazepam 2 MG/ML VIAL ONE (23:14)
[2020-02-13] MEDS ORDERED: Multivitamins, Adult 10 ML, Thiamine HCl 100 MG, Folic Acid 1 MG in Dextrose 5 %-0.45 %... IV SCH (23:30)
[2020-02-14] MEDS ORDERED: Lorazepam 2 MG/ML VIAL ONE (00:09)
[2020-02-14 01:07] LABS: Troponin I Less than 0.010 ng/mL (< 0.028)
[2020-02-14] MEDS ORDERED: Ondansetron ODT 4 MG TAB SL PRN (01:43)
[2020-02-14] MEDS ORDERED: Ondansetron PF 4 MG/2 ML Vial IVP PRN (01:43)
[2020-02-14] MEDS ORDERED: Sodium Chloride 0.9% 1,000 ML IV SCH (01:45)
[2020-02-14 01:49] VITALS: BMI 34.5
[2020-02-14] MEDS ORDERED: Meperidine HCl/PF 25 MG/ML VIAL SLOW IVP PRN (02:40)
[2020-02-14] MEDS ORDERED: Lorazepam 2 MG/ML VIAL SLOW IVP PRN (02:42)
[2020-02-14] MEDS: Morphine 4 MG/ML VIAL SLOW IVP PRN ×5 (03:56→20:57)
--- NOTE | 2020-02-14 03:56 | HP ---
CHIEF COMPLAINT: Abdominal pain. HISTORY OF PRESENT ILLNESS: Mr. Fields is a 44-year-old male with past medical history of alcohol abuse, hypertension, insomnia, pancreatitis, among others, presents to the emergency room with lower chest pain and upper abdominal pain radiating to the back that started yesterday. The patient reports regular drinking and smoking. Workup in the emergency room, the patient had a lipase more than 6000. CT of the abdomen shows signs of an acute pancreatitis. The patient is being admitted to hospital for further management. The patient denies fever or chills. PAST MEDICAL HISTORY: As mentioned above in the history of present illness. PAST SURGICAL HISTORY: 1. Appendectomy. 2. Right knee surgery. 3. Hernia repair. 4. Ganglion cyst removal of the left arm. 5. Bilateral wrist surgery. PAST PSYCHIATRIC HISTORY: Anxiety and depression. SOCIAL HISTORY: He drinks alcohol heavily every day. Smoke cigarettes. FAMILY HISTORY: Reviewed and noncontributory. ALLERGIES: ALLERGIC TO ERYTHROMYCIN. HOME MEDICATIONS: Please see home medication reconciliation form for updated medications. FAMILY HISTORY: Reviewed and noncontributory. REVIEW OF SYSTEMS: Review of 14 systems negative except what is mentioned in the history of present illness. PHYSICAL EXAMINATION: GENERAL: The patient is awake, alert, in moderate to severe distress secondary to pain. VITAL SIGNS: Blood pressure is 133/89, pulse is 115, respiratory rate is 18, pulse oximetry is 99% on room air. HEAD AND NECK: Normocephalic and atraumatic. Neck is supple. No JVD. CHEST: Fair bilateral air entry. HEART: S1, S2. Regular. ABDOMEN: Soft. Mid abdominal and epigastric tenderness. Bowel sounds present. NEUROLOGIC: Awake, alert, and oriented x3. Anxious. PSYCHIATRIC: Anxious. EXTREMITIES: No clubbing no cyanosis. LABORATORY DATA: As mentioned above in the history of present illness. IMAGING STUDIES: As mentioned above in the history of present illness. ASSESSMENT: 1. Acute pancreatitis. 2. Alcohol abuse. 3. Hypokalemia. 4. Dehydration. 5. Hypertension. PLAN: 1. Admit. 2. Keep n.p.o. 3. IV fluids. 4. Pain management. 5. Reconcile home medications. 6. Monitor for alcohol withdrawal and use benzodiazepine as needed. 7. Add multivitamin, thiamine, and folate. 8. Reconcile home medications. 9. Expected length of stay, 2 midnights or more. Job ID: [id number]
[2020-02-14 04:01] LABS: ALT (SGPT) 45 U/L (8-55); AST (SGOT) 55 U/L (5-34); Albumin 3.9 g/dL (3.5-5.0); Alkaline Phosphatase 80 U/L (40-110); Bilirubin, Direct 0.4 mg/dL (0.1-0.3); Cardiac Risk 4.2 (Less than 4.5); Cholesterol 209 mg/dl (< 200 Desired); HDL Cholesterol 50 mg/dL (>60 Neg Risk); LDL Cholesterol, Calculated 134 mg/dL; Magnesium 1.7 mg/dL (1.6-2.6); Phosphorus 3.2 mg/dL (2.3-4.7); Protein, Total 7.4 g/dL (6.0-8.3); Triglycerides 125 mg/dL (Less than 150)
[2020-02-14 04:11] LABS: Troponin I Less than 0.010 ng/mL (< 0.028)
[2020-02-14 04:15] LABS: Lipase 4924 U/L (8-78)
[2020-02-14] MEDS: Sodium Chloride 0.9% 1,000 ML IV SCH ×3 (05:36→16:15)
[2020-02-14] MEDS ORDERED: FLU VACC QS2019-20(6MOS UP)/PF 60 MCG/0.5 ML SYRINGE IM ONE (09:00)
[2020-02-14] MEDS ORDERED: Sucralfate 1 GM TAB PO PRN (09:48)
[2020-02-14] MEDS: Docusate 100 MG CAP PO SCH (20:45)
[2020-02-14] MEDS: Melatonin 3 MG TAB PO SCH (20:45)
[2020-02-14] MEDS: Gabapentin 100 MG CAP PO SCH (20:46)
[2020-02-14] MEDS ORDERED: Non-Formulary Item 1 EACH (Melatonin [Melatonin] 5 MG) PO SCH (21:00)
[2020-02-14] MEDS ORDERED: GABAPENTIN PO SCH (21:00)
[2020-02-14] MEDS ORDERED: Propranolol 40 MG TAB PO SCH (21:00)
[2020-02-14] MEDS ORDERED: Gabapentin 100 MG CAP PO SCH (21:00)
[2020-02-14] MEDS: Lorazepam 2 MG/ML VIAL SLOW IVP PRN (21:52)
[2020-02-14] MEDS: Multivitamins, Adult 10 ML, Folic Acid 1 MG, Thiamine HCl 100 MG in Dextrose 5 %-0.45 %... IV SCH (21:58)
[2020-02-15] MEDS: Sodium Chloride 0.9% 1,000 ML IV SCH ×4 (00:31→15:55)
[2020-02-15] MEDS: Morphine 4 MG/ML VIAL SLOW IVP PRN ×5 (00:44→21:14)
[2020-02-15] MEDS: Lorazepam 2 MG/ML VIAL SLOW IVP PRN ×2 (03:22→15:55)
[2020-02-15 05:12] LABS: Anion Gap 13 mmol/L (10-20); BUN (Urea Nitrogen) 5 mg/dL (8.9-20.6); Calc. Creatinine Clearance 207 mL/min (70-130); Calcium 8.4 mg/dL (7.8-10.44); Carbon Dioxide 26 mmol/L (22-29); Chloride 101 mmol/L (98-107); Estimated GFR-MDRD Greater than 90; Glucose 108 mg/dL (70-105); Magnesium 1.8 mg/dL (1.6-2.6); Potassium 3.5 mmol/L (3.5-5.1); Sodium 136 mmol/L (136-145)
[2020-02-15] MEDS: Finasteride 5 MG TAB PO SCH (07:52)
[2020-02-15] MEDS: Tamsulosin HCl 0.4 MG CAP PO SCH (07:53)
[2020-02-15] MEDS: Docusate 100 MG CAP PO SCH ×2 (07:53→21:15)
[2020-02-15] MEDS: Thiamine 100 MG TAB PO SCH (07:53)
[2020-02-15] MEDS: Ferrous Sulfate 325 MG TAB PO SCH (07:53)
[2020-02-15] MEDS: Multivit, Therapeutic 1 TAB PO SCH (07:53)
[2020-02-15] MEDS: Gabapentin 100 MG CAP PO SCH ×2 (08:00→21:14)
[2020-02-15] MEDS ORDERED: Non-Formulary Item 1 EACH (Thiamine Hcl [Vitamin B-1] 100 MG) PO SCH (09:00)
[2020-02-15] MEDS ORDERED: Non-Formulary Item 1 EACH (Multivitamin [Multivitamins] 1 CAP) PO SCH (09:00)
--- NOTE | 2020-02-15 12:40 | CON ---
DATE OF CONSULTATION: 02/15/2020 CHIEF COMPLAINT: Abdominal pain. HISTORY OF PRESENT ILLNESS: Mr. Fields is a 44-year-old , who had onset of epigastric, severe aching abdominal pain that radiates around to his back, which started on Friday afternoon, the day before yesterday. He had nausea and vomiting with that initially and he came onto the emergency room for further care. He came in late last night. He was given 2 L of normal saline in the emergency room. He has been on sodium chloride 150 mL/h since then. He states that his pain has greatly improved, his nausea has resolved. He has had some diarrhea over the last couple of days. He has been drinking half a gallon of vodka daily. He smokes a pack every couple of weeks. He has had no blood in the stool recently. He saw some blood in the stool last summer with hematemesis. He had EGD and a flexible sigmoidoscopy at [facility] [place] back in August 2019. Severe grade D erosive esophagitis was noted. He was found to have acute pancreatitis on presentation here with inflammatory changes around the pancreas by CT and lipase of 6000. PAST MEDICAL HISTORY: Alcohol abuse and withdrawal, PTSD, history of DTs, insomnia, peripheral neuropathy, severe grade D erosive esophagitis by endoscopy in last August. PAST SURGICAL HISTORY: Appendectomy, knee surgery, hernia repair, cyst removed from the left wrist. FAMILY HISTORY: Negative for GI malignancy. SOCIAL HISTORY: He drinks half a gallon of whiskey or vodka per day. No drugs. He is . He is a [employer] . Smokes a pack every 2 weeks, but has smoked more heavily previously. ALLERGIES: ERYTHROMYCIN. MEDICATIONS PRIOR TO ADMISSION: He is really unable to name medications. It is unclear if he has actually been taking proton pump inhibitor. He has been on omeprazole by prescription prior to admission. He has been on; 1. Gabapentin. 2. Propranolol. 3. Maybe pantoprazole versus omeprazole. 4. Tamsulosin. REVIEW OF SYSTEMS: Negative x10 systems reviewed except as stated in history of present illness. PHYSICAL EXAMINATION: VITAL SIGNS: Temperature 99.2, pulse 93, blood pressure 105/78. GENERAL: He is in no acute distress. He is alert and oriented x3. HEENT: Eyes have no scleral icterus. Oropharynx is clear without lesions. No cervical or supraclavicular lymphadenopathy. LUNGS: Clear to auscultation bilaterally. HEART: Regular rate and rhythm without murmur. ABDOMEN: Soft, tender across the upper abdomen with slight guarding. Bowel sounds are present and active. EXTREMITIES: No lower extremity edema. NEUROLOGIC: Cranial nerves are grossly intact. LABORATORY DATA: White blood cell count 8.9. Hemoglobin 11.0, however, his baseline hemoglobin is closer to 9. I expect this will come down with rehydration. MCV of 70, platelets 395. Bilirubin 1.0, AST 55, ALT 45, alkaline phosphatase 80, albumin 3.9, creatinine 0.86. IMPRESSION: 1. Acute alcoholic pancreatitis. He is clinically improving. He does not have signs of secondary organ failure or severe pancreatitis. No evidence of necrosis by contrast enhanced CT. 2. Alcoholic fatty liver disease. 3. History of delirium tremens and post-traumatic stress disorder. 4. Iron deficiency anemia. His ferritin was low back in October. His MCV since then has decreased. He underwent endoscopy at the [facility] in August that showed severe grade D erosive esophagitis. He had a flexible sigmoidoscopy to the transverse colon at that time, which was negative. RECOMMENDATIONS: 1. Alcohol cessation. 2. Smoking cessation. 3. IV fluids and advance from a clear liquid diet to a low-fat diet as he tolerates. 4. Monitor for acute alcohol withdrawal. 5. Follow up with the [facility] for EGD and complete colonoscopy in light of the prior erosive esophagitis and iron deficiency anemia. 6. Proton pump inhibitor twice daily. Job ID: [id number]
[2020-02-15] MEDS: Multivitamins, Adult 10 ML, Folic Acid 1 MG, Thiamine HCl 100 MG in Dextrose 5 %-0.45 %... IV SCH (21:13)
[2020-02-15] MEDS: Melatonin 3 MG TAB PO SCH (21:14)
--- NOTE | 2020-02-15 23:14 | PDOC.HOSPP ---
- Subjective Encounter Date: 02/15/20 Encounter Time: 10:00 Subjective: no overnight events. This morning, feels slightly better but abdominal pain persists especially when moving. otherwise no complaints. - Objective Vital Signs & Weight: Vital Signs (12 hours) Temp Pulse Resp BP BP Pulse Ox 02/15/20 16:00 98.5 F 97 20 122/78 119/81 97 02/15/20 12:18 97.9 F 97 18 126/62 126/62 91 L Weight Weight 244 lb 3.2 oz I&O: 02/14/20 02/15/20 02/16/20 06:59 06:59 06:59 Intake Total 3830 Output Total 2175 Balance 1655 Result Diagrams: 02/13/20 21:25 02/15/20 04:21 Hospitalist ROS - Review of Systems Constitutional: denies: fever, chills, sweats, weakness, malaise, other Respiratory: denies: cough, dry, shortness of breath, hemoptysis, SOB with excertion, pleuritic pain, sputum, wheezing, other Cardiovascular: denies: chest pain, palpitations, orthopnea, paroxysmal noc. dyspnea, edema, light headedness, other Gastrointestinal: reports: abdominal pain. denies: nausea, vomiting, diarrhea, constipation, melena, hematochezia, other Genitourinary: denies: dysuria, frequency, incontinence, hematuria, retention, other - Medication Medications: Active Medications Generic Name Dose Route Start Last Admin Trade Name Freq PRN Reason Stop Dose Admin Docusate Sodium 100 mg 02/14/20 21:00 02/15/20 21:15 Colace PO Not Given BID IDANIA Ferrous Sulfate 325 mg 02/15/20 08:00 02/15/20 07:53 Feosol PO 325 mg QAM-WM IDANIA Administration Finasteride 5 mg 02/15/20 09:00 02/15/20 07:52 Proscar PO 5 mg DAILY IDANIA Administration Gabapentin 200 mg 02/14/20 21:00 02/15/20 21:14 Neurontin PO 200 mg BID IDANIA Administration Sodium Chloride 1,000 mls @ 150 mls/hr 02/14/20 03:00 02/15/20 15:55 Normal Saline 0.9% IV 1,000 mls .Q6H40M IDANIA Administration Multivitamins 10 ml/ Folic 1,011.2 mls @ 125 mls/hr 02/14/20 21:00 02/15/20 21:13 Acid 1 mg/ Thiamine HCl 100 mg IV 02/16/20 05:06 1,011.2 mls / Dextrose/Sodium Chloride 2100 IDANIA Administration Lorazepam 2 mg 02/14/20 09:50 02/15/20 15:55 Ativan SLOW IVP 2 mg Q2H PRN Administration Alcohol Withdrawal Melatonin 6 mg 02/14/20 21:00 02/15/20 21:14 Melatonin PO 6 mg HS IDANIA Administration Morphine Sulfate 4 mg 02/14/20 11:49 02/15/20 21:14 Morphine SLOW IVP 4 mg Q2H PRN Administration Pain Multivitamins 1 tab 02/15/20 09:00 02/15/20 07:53 Theragran PO 1 tab DAILY IDANIA Administration Pantoprazole Sodium 40 mg 02/14/20 21:00 02/15/20 21:14 Protonix PO 40 mg BID IDANIA Administration Sodium Chloride 10 ml 02/14/20 21:00 02/15/20 21:15 Flush - Normal Saline IVF Not Given Q12HR IDANIA Sodium Chloride 10 ml 02/14/20 10:27 02/15/20 03:22 Flush - Normal Saline IVF 10 ml PRN PRN Administration Saline Flush Tamsulosin HCl 0.4 mg 02/15/20 09:00 02/15/20 07:53 Flomax PO 0.4 mg DAILY IDANIA Administration Thiamine HCl 100 mg 02/15/20 09:00 02/15/20 07:53 Thiamine PO 100 mg DAILY IDANIA Administration - Exam General Appearance: NAD, awake alert Heart: no murmur, no gallops, no rubs Heart - other findings: tachycardia Respiratory: CTAB, no wheezes, no rales, no ronchi Gastrointestinal: soft, normal bowel sounds Gastrointestinal - other findings: tender, midly distended Extremities: no edema Psychiatric: normal affect, normal behavior, A&O x 3 Hosp A/P - Plan #acute pancreatitis -advance diet -continue supportive measures #microcytic anemia -appreciated GI recs -PPI bid -will advise patient to follow up in [facility] for EGD and colonoscopy expected discharge 02/14
[2020-02-16] MEDS: Lorazepam 2 MG/ML VIAL SLOW IVP PRN ×2 (00:25→10:05)
[2020-02-16] MEDS: Sodium Chloride 0.9% 1,000 ML IV SCH ×5 (01:22→22:51)
[2020-02-16 05:44] LABS: Anion Gap 10 mmol/L (10-20); BUN (Urea Nitrogen) 4 mg/dL (8.9-20.6); Calc. Creatinine Clearance 196 mL/min (70-130); Calcium 8.5 mg/dL (7.8-10.44); Carbon Dioxide 27 mmol/L (22-29); Chloride 101 mmol/L (98-107); Estimated GFR-MDRD Greater than 90; Glucose 115 mg/dL (70-105); Magnesium 1.9 mg/dL (1.6-2.6); Potassium 3.3 mmol/L (3.5-5.1); Sodium 135 mmol/L (136-145)
[2020-02-16] MEDS: Morphine 4 MG/ML VIAL SLOW IVP PRN ×3 (08:10→17:48)
[2020-02-16] MEDS: Docusate 100 MG CAP PO SCH ×2 (08:12→20:37)
[2020-02-16] MEDS: Ferrous Sulfate 325 MG TAB PO SCH (08:12)
[2020-02-16] MEDS: Gabapentin 100 MG CAP PO SCH ×2 (08:13→20:36)
[2020-02-16] MEDS: Tamsulosin HCl 0.4 MG CAP PO SCH (08:13)
[2020-02-16] MEDS ORDERED: Potassium Chloride 20 MEQ TAB PO SCH (08:30)
[2020-02-16] MEDS: Thiamine 100 MG TAB PO SCH (09:50)
[2020-02-16] MEDS: Multivit, Therapeutic 1 TAB PO SCH (09:52)
[2020-02-16] MEDS: Finasteride 5 MG TAB PO SCH (09:52)
--- NOTE | 2020-02-16 18:03 | PRG ---
DATE OF SERVICE: 02/16/2020 SUBJECTIVE: Mr. Fields is feeling better, but he did eat half his meal and then vomited and then ate other half of his meal and kept it down. He has had no fever or chills. He does have the shakes related to alcohol withdrawal. OBJECTIVE: VITAL SIGNS: Temperature 98.4, pulse 111, and blood pressure 141/72. GENERAL: He is in no acute distress. Alert and oriented x3. LUNGS: Clear to auscultation bilaterally. HEART: Regular rate and rhythm without murmur. ABDOMEN: Soft. He has tenderness in the upper abdomen without guarding. Bowel sounds are present. EXTREMITIES: No lower extremity edema. He is tremulous. LABORATORY DATA: Creatinine 0.76. No new liver tests or lipase or blood counts today. IMPRESSION: 1. Acute pancreatitis without signs of secondary organ failure or necrosis by contrast enhanced CT. Continue IV fluids. He can advance to a low-fat diet as he tolerates. 2. Alcohol withdrawal and history of delirium tremens. 3. Iron-deficiency anemia. RECOMMENDATIONS: 1. Withdrawal precautions. 2. Continue IV fluids. 3. Oral diet as he tolerates. 4. Follow back up with the [facility] for outpatient EGD and colonoscopy. He had an endoscopy at the [facility] in [place] and flexible sigmoidoscopy several months ago. 5. Alcohol cessation. Job ID: [id number]
[2020-02-16] MEDS ORDERED: Melatonin 3 MG TAB PO PRN (19:22)
--- NOTE | 2020-02-16 19:28 | PDOC.HOSPP ---
- Subjective Encounter Date: 02/16/20 Encounter Time: 12:00 Subjective: no overnight events. Advanced diet but patient only partially tolerating, still nauseated. Also abdominal pain persists though improved - Objective Vital Signs & Weight: Vital Signs (12 hours) Temp Pulse Resp BP BP Pulse Ox 02/16/20 16:00 98.3 F 111 H 20 138/91 H 138/91 H 94 L 02/16/20 12:00 98.4 F 141/72 H 02/16/20 11:11 98.4 F 111 H 20 141/72 H 92 L 02/16/20 08:00 98.4 F 100 20 148/95 H 148/95 H 95 Weight Weight 244 lb 3.2 oz I&O: 02/15/20 02/16/20 02/17/20 06:59 06:59 06:59 Intake Total 3830 1999 2340 Output Total 2175 2200 Balance 1655 1999 140 Result Diagrams: 02/13/20 21:25 02/16/20 04:58 Hospitalist ROS - Review of Systems Constitutional: denies: fever, chills, sweats, weakness, malaise, other Respiratory: denies: cough, dry, shortness of breath, hemoptysis, SOB with excertion, pleuritic pain, sputum, wheezing, other Cardiovascular: denies: chest pain, palpitations, orthopnea, paroxysmal noc. dyspnea, edema, light headedness, other Gastrointestinal: reports: nausea, abdominal pain. denies: vomiting, diarrhea, constipation, melena, hematochezia, other Genitourinary: denies: dysuria, frequency, incontinence, hematuria, retention, other - Medication Medications: Active Medications Generic Name Dose Route Start Last Admin Trade Name Freq PRN Reason Stop Dose Admin Docusate Sodium 100 mg 02/14/20 21:00 02/16/20 08:12 Colace PO Not Given BID IDANIA Ferrous Sulfate 325 mg 02/15/20 08:00 02/16/20 08:12 Feosol PO 325 mg QAM-WM IDANIA Administration Finasteride 5 mg 02/15/20 09:00 02/16/20 09:52 Proscar PO 5 mg DAILY IDANIA Administration Gabapentin 200 mg 02/14/20 21:00 02/16/20 08:13 Neurontin PO 200 mg BID IDANIA Administration Sodium Chloride 1,000 mls @ 100 mls/hr 02/16/20 08:21 02/16/20 12:36 Normal Saline 0.9% IV 1,000 mls .Q10H IDANIA Administration Melatonin 6 mg 02/14/20 21:00 02/15/20 21:14 Melatonin PO 6 mg HS IDANIA Administration Multivitamins 1 tab 02/15/20 09:00 02/16/20 09:52 Theragran PO 1 tab DAILY IDANIA Administration Pantoprazole Sodium 40 mg 02/14/20 21:00 02/16/20 09:50 Protonix PO 40 mg BID IDANIA Administration Sodium Chloride 10 ml 02/14/20 21:00 02/16/20 08:14 Flush - Normal Saline IVF 10 ml Q12HR IDANIA Administration Sodium Chloride 10 ml 02/14/20 10:27 02/15/20 03:22 Flush - Normal Saline IVF 10 ml PRN PRN Administration Saline Flush Tamsulosin HCl 0.4 mg 02/15/20 09:00 02/16/20 08:13 Flomax PO 0.4 mg DAILY IDANIA Administration Thiamine HCl 100 mg 02/15/20 09:00 02/16/20 09:50 Thiamine PO 100 mg DAILY IDANIA Administration - Exam General Appearance: NAD Heart: no murmur, no gallops, no rubs Heart - other findings: regular rhythm, tachycardic but improved Respiratory: CTAB, no wheezes, no rales, no ronchi Gastrointestinal: soft, non-distended, normal bowel sounds, no palpable masses, no hepatomegaly, no splenomegaly, no bruit Gastrointestinal - other findings: mildly tender in epigastric area Extremities: no edema Psychiatric: normal affect, normal behavior, A&O x 3 Hosp A/P - Plan #acute pancreatitis -advance diet, partially tolerates -continue supportive measures #microcytic anemia -appreciated GI recs; notified patient to follow up in [facility] -PPI bid #erectile dysfuction -notified patient that will refer him to urology for alternatives to tamsulosin and finasteride -considering erectile dysfunction main complaint, likely finasteride main culprit expected discharge 02/15
[2020-02-16] MEDS: Morphine 2 MG/ML SYRINGE SLOW IVP PRN (22:50)
[2020-02-17] MEDS: Morphine 2 MG/ML SYRINGE SLOW IVP PRN ×3 (03:40→13:50)
[2020-02-17] MEDS: Sodium Chloride 0.9% 1,000 ML IV SCH ×3 (04:30→13:53)
[2020-02-17] MEDS: Docusate 100 MG CAP PO SCH (09:00)
[2020-02-17] MEDS: Multivit, Therapeutic 1 TAB PO SCH (09:00)
[2020-02-17] MEDS: Thiamine 100 MG TAB PO SCH (09:00)
[2020-02-17] MEDS: Gabapentin 100 MG CAP PO SCH (09:00)
[2020-02-17] MEDS: Ferrous Sulfate 325 MG TAB PO SCH (09:00)
[2020-02-17] MEDS: Tamsulosin HCl 0.4 MG CAP PO SCH (09:00)
[2020-02-17] MEDS: Finasteride 5 MG TAB PO SCH (09:00)
[2020-02-17 12:50] LABS: #Basophils 0.1 thou/uL (0.0-0.2); #Eosinphils 0.2 thou/uL (0.0-0.7); #Lymphocytes 0.9 thou/uL (1.20-3.40); #Monocytes 0.8 thou/uL (0.11-0.59); #Neutrophils 5.4 thou/uL (1.40-6.50); %Basophils 1.3 % (0.0-1.0); %Eosinophils 2.4 % (0.0-10.0); %Lymphocytes 12.6 % (21.0-51.0); %Monocytes 10.8 % (0.0-10.0); %Neutrophils 72.9 % (42.0-75.0); Hemoglobin 9.2 g/dL (14.0-18.0); Mean Corpuscular HGB CONC 31.1 g/dL (32.0-36.0); Mean Corpuscular Hemoglobin 22.6 pg (27.0-31.0); Mean Corpuscular Volume 72.6 fL (78.0-98.0); Mean Platelet Volume 7.9 fL (7.4-10.4); Platelet Count 315 thou/uL (130-400); RBC Distribution Width 17.7 % (11.5-14.5); Red Blood Cell (RBC) Count 4.05 mill/uL (4.70-6.10); White Blood Cell (WBC) Count 7.3 thou/uL (4.8-10.8)
--- NOTE | 2020-02-17 13:07 | PRG ---
DATE OF SERVICE: 02/17/2020 SUBJECTIVE: Mr. Fields is tolerating solid diet, taking small amounts at a time. He still has some abdominal pain. No vomiting today. OBJECTIVE: VITAL SIGNS: Temperature is 98.5, pulse 105, and blood pressure 142/83. GENERAL: He is in no acute distress. Awake, alert, and oriented x3. LUNGS: Clear to auscultation bilaterally. HEART: Tachycardic. S1 and S2. ABDOMEN: Soft. Mild epigastric tenderness without guarding. Bowel Sounds are present. EXTREMITIES: No lower extremity edema. LABORATORY DATA: No new labs today. IMPRESSION: 1. Alcohol-induced acute pancreatitis. 2. Iron-deficiency anemia, chronic. RECOMMENDATIONS: 1. We will check liver tests and CBC and lipase once today prior to discharge. 2. He should follow up with the [facility] for outpatient EGD and colonoscopy. He did have a recent EGD and flexible sigmoidoscopy in [place], which was negative several months ago. 3. Alcohol cessation has been advised. Job ID: [id number]
[2020-02-17 13:16] LABS: ALT (SGPT) 31 U/L (8-55); AST (SGOT) 56 U/L (5-34); Albumin 3.6 g/dL (3.5-5.0); Alkaline Phosphatase 86 U/L (40-110); Anion Gap 10 mmol/L (10-20); BUN (Urea Nitrogen) 8 mg/dL (8.9-20.6); Bilirubin, Total 0.6 mg/dL (0.2-1.2); Calc. Creatinine Clearance 170 mL/min (70-130); Calcium 8.9 mg/dL (7.8-10.44); Carbon Dioxide 25 mmol/L (22-29); Chloride 101 mmol/L (98-107); Estimated GFR-MDRD Greater than 90; Globulin 3.5 g/dL (2.4-3.5); Glucose 128 mg/dL (70-105); Potassium 3.3 mmol/L (3.5-5.1); Protein, Total 7.1 g/dL (6.0-8.3); Sodium 133 mmol/L (136-145)
[2020-02-17 13:29] LABS: Lipase 1406 U/L (8-78)
[2020-02-17] MEDS ORDERED: Potassium Chloride 20 MEQ TAB PO SCH (13:51)
[2020-02-17] MEDS ORDERED: Ondansetron PF 4 MG/2 ML Vial IVP PRN (14:42)
[2020-02-17] MEDS ORDERED: Ondansetron ODT 4 MG TAB PO SCH (14:54)
[2020-02-17 16:28] VITALS: BP 127/87
[2020-02-17 16:29] VITALS: TEMP 98.9
--- NOTE | 2020-02-19 10:10 | EKG ---
Test Reason : CP Blood Pressure : / mmHG Vent. Rate : 118 BPM Atrial Rate : 118 BPM P-R Int : 144 ms QRS Dur : 082 ms QT Int : 328 ms P-R-T Axes : 053 020 069 degrees QTc Int : 459 ms Sinus tachycardia with occasional Premature ventricular complexes Otherwise normal ECG Confirmed by JAYME BENZ ([id number]), editor publications RUBI VILLEGAS ([id number]) on 02/19/2020 10:10:21 AM Referred By: Confirmed By:JAYME BENZ
== END 2020-02-17 16:20 | disposition home or self-care (01) | DRG 439 ==
LOC: ERS 21:12 → 2NO 02-14 00:04 → T4-A 02-15 14:13
PROVIDERS: ADMIT Internal Medicine; ATTEND Internal Medicine
DX: K85.20 Alcohol induced acute pancreatitis without necrosis or infection (principal); F10.239 Alcohol dependence with withdrawal, unspecified; D50.9 Iron deficiency anemia, unspecified; N52.9 Male erectile dysfunction, unspecified; I10 Essential (primary) hypertension; G47.00 Insomnia, unspecified; K70.0 Alcoholic fatty liver; F41.9 Anxiety disorder, unspecified; F32.9 Major depressive disorder, single episode, unspecified; Z88.1 Allergy status to other antibiotic agents; E87.6 Hypokalemia; E86.0 Dehydration; F43.10 Post-traumatic stress disorder, unspecified; Z90.49 Acquired absence of other specified parts of digestive tract; F17.200 Nicotine dependence, unspecified, uncomplicated; Z71.41 Alcohol abuse counseling and surveillance of alcoholic; Z71.6 Tobacco abuse counseling; Y90.3 Blood alcohol level of 60-79 mg/100 ml
CPT/HCPCS: 36415; 71045; 71275; 72191; 74175; 80048; 80053; 80061; 80076; 80307; 81003; 81015; 82550; 83690; 83735; 84100; 84132; 84478; 84484; 85025; 85379; 93005; 94760; 96361; 96365; 96375; 96376; 99406; J2060; J2270; J2405; J3411; J7042; Q9967

== ENCOUNTER 2020-07-16 11:12 | Inpatient (IN) | payer OTHER ==
[2020-07-16 11:42] LABS: Bacteria/HPF None Seen HPF (None Seen); Bilirubin 2+ (Negative); Blood, Urine Negative (Negative); Clarity Clear (Clear); Glucose, Urine (Dipstick) 200 mg/dL (Negative); Ketone, Urine Negative (Negative); Leukocyte Negative Leu/uL (Negative); Nitrite Negative (Negative); Protein, Urine (Dipstick) 30 mg/dL (Neg-Trace); RBC/HPF None Seen HPF (0-3); Specific Gravity, Urine 1.023 (1.002-1.036); Squamous Epithelial 0-3 HPF (0-3); Urobilinogen 6 mg/dL (Less than 2)
[2020-07-16 12:02] LABS: ALT (SGPT) 46 U/L (8-55); AST (SGOT) 181 U/L (5-34); Albumin 3.4 g/dL (3.5-5.0); Alkaline Phosphatase 285 U/L (40-110); Anion Gap 19 mmol/L (10-20); BUN (Urea Nitrogen) 6 mg/dL (8.9-20.6); Bilirubin, Total 3.2 mg/dL (0.2-1.2); Calc. Creatinine Clearance 0 mL/min (70-130); Calcium 8.5 mg/dL (7.8-10.44); Carbon Dioxide 22 mmol/L (22-29); Chloride 94 mmol/L (98-107); Estimated GFR-MDRD Greater than 90; Globulin 4.6 g/dL (2.4-3.5); Glucose 269 mg/dL (70-105); Lipase 274 U/L (8-78); Potassium 3.5 mmol/L (3.5-5.1); Sodium 131 mmol/L (136-145)
[2020-07-16 12:08] LABS: #Lymphocytes 1.1 thou/uL (1.20-3.40); #Monocytes 1.4 thou/uL (0.11-0.59); #Neutrophils 8.2 thou/uL (1.40-6.50); %Basophils 0.3 % (0.0-1.0); %Eosinophils 0.4 % (0.0-10.0); %Lymphocytes 10.5 % (21.0-51.0); %Monocytes 12.8 % (0.0-10.0); %Neutrophils 75.9 % (42.0-75.0); Hemoglobin 9.8 g/dL (14.0-18.0); Mean Corpuscular HGB CONC 32.3 g/dL (32.0-36.0); Mean Corpuscular Hemoglobin 26.4 pg (27.0-31.0); Mean Corpuscular Volume 81.8 fL (78.0-98.0); Mean Platelet Volume 8.5 fL (7.4-10.4); Platelet Count 370 thou/uL (130-400); RBC Distribution Width 17.9 % (11.5-14.5); White Blood Cell (WBC) Count 10.8 thou/uL (4.8-10.8)
--- NOTE | 2020-07-16 12:10 | RAD ---
CHEST 1 VIEW: HISTORY: Abdominal pain. COMPARISON: 02/13/2020. FINDINGS: Heart size is normal. The lungs are clear. IMPRESSION: No significant acute intrathoracic disease. Stable from prior study. POS: OFF
[2020-07-16] MEDS ORDERED: Cefepime 2 GM VIAL ONE (12:17)
[2020-07-16] MEDS ORDERED: Ondansetron PF 4 MG/2 ML Vial ONE (12:17)
[2020-07-16] MEDS ORDERED: manNITOL 20% 0 ML ONE (12:17)
[2020-07-16] MEDS ORDERED: Morphine 4 MG/ML VIAL ONE ×2 (12:17→13:18)
[2020-07-16] MEDS ORDERED: metroNIDAZOLE 500 MG/100 ML BAG ONE ×2 (12:17→13:31)
--- NOTE | 2020-07-16 12:57 | CT ---
EXAM: CT ABDOMEN AND PELVIS HISTORY: Previous appendectomy. 2 weeks of abdominal pain, worsening. COMPARISON: CT aortic dissection protocol 02/13/2020. Procedure: Multiple contiguous axial images were obtained and a CT of the abdomen and pelvis with IV contrast. C oronal reformats were performed. FINDINGS: Lower Chest: Dependent atelectatic changes. Vessels: Normal caliber aorta. No periaortic fat stranding . Heart: Normal heart size. No significant pericardial fluid. Abdomen: Portal vein:Patent. Gallbladder: Mild pericholecystic fluid. Correlate for cholecystitis. Liver: Diffuse hypoattenuation compatible with hepatic steatosis. Hepatomegaly, unchanged. Pancreas: within normal limits. Spleen: within normal limits. Adrenals: within normal limits. Kidneys: Symmetric enhancement. No obstructive uropathy. Peritoneum: Mild stranding of the abdominal mesentery. Small amount of residual fluid is suspected. Bowel: Limited evaluation due to lack of oral contrast administration. Multiple normal caliber small bowel loops. Normal ileocecal junction. Surgically absent appendix. Decompressed colon. Occasional diverticulum. Mesentery and Retroperitoneum: No enlarged mesenteric or retroperitoneal lymph nodes. Abdominal Wall: Small umbilical hernia containing mesenteric fat. Pelvis: Reproductive Organs: Reproductive organs are unremarkable. Pelvis: No mass, lymphadenopathy, free air or free fluid. Bladder: Punctate hyperdensities in the lumen of the urinary bladder. Correlate for bladder calculi. Bladder mucosa is also prominent. Correlate for cystitis. Bones: Unilateral L5 pars defect. No spondylolisthesis. IMPRESSION: 1. Hepatic steatosis and hepatomegaly. 2. No obstructive uropathy. 3. No bowel obstruction. 4. Possible cholecystitis. Consider gallbladder ultrasound. 5. Possible cystitis and bladder calculi. Transcribed Date/Time: 07/16/2020 1:01 PM
[2020-07-16] MEDS ORDERED: Iopamidol-370 76% 500 ML 1 ML ONE (14:03)
--- NOTE | 2020-07-16 14:07 | ULT ---
EXAM: US Gallbladder RUQ CLINICAL HISTORY: Abdominal pain, x2. COMPARISON: None. FINDINGS: Pancreas: Obscured by bowel gas Liver:Increased hepatic parenchymal echotexture may be due to hepatic steatosis or hepatocellular dis ease. Limited evaluation for hepatic masses and intrahepatic biliary dilatation. Right hepatic lobe: 20.8 cm Gallbladder: Gallbladder wall is thickened. Gallbladder is contracted which may contribute to gallbla dder wall prominence. Possible sludge. No gallstones. [employer] reports pericholecystic fluid. Gama's sign:Negative Portal Vein: Cannot be adequately assessed Bile ducts: Cannot be adequately assessed Right kidney: No hydronephrosis. Right kidney measures 11.7 cm in length. IMPRESSION: 1. Suboptimal evaluation of the gallbladder. There does appear to be pericholecystic fluid. Without d efinite cholelithiasis or a Gama's sign. If there is concern for acalculous cholecystitis, consider HIDA scan. 2. Hepatomegaly and fatty infiltration liver
[2020-07-16] MEDS ORDERED: Fentanyl 100 MCG/2 ML VIAL ONE ×3 (14:22→19:31)
[2020-07-16 14:56] LABS: Lactic Acid 2.7 mmol/L (0.5-2.2)
--- NOTE | 2020-07-16 16:03 | PDOC.HHP ---
Hospitalist HPI - History of Present Illness abd pain History of Present Illness: This is a pleasant 44 years old gentleman who has significant past medical history of hypertension, GERD, urinary retention/BPH, alcohol-related neuropathy, alcoholic induced pancreatitis, PTSD, alcohol abuse, unfortunately still drinking more than half a gallon of vodka a day, who presented to the ED with complaint of abdominal pain. Patient reports that his symptoms started about 2 weeks ago, intermittent, dull aching pain with increased abdominal girth. However has progressively worsened this morning. He denies any significant nausea or vomiting. He does endorse some diarrhea. He denies any fevers or chills. His last drink was this morning. Initial work-up in ED, CT abdomen and pelvis, did not show any evidence of obstruction, questionable cholecystitis. Gallbladder ultrasound, was suboptimal given his body habitus, however, there is does appear to be pericholecystic fluid. Without definitive gallstone. Lactic acid was mildly elevated. T bili and AST are elevated consistent with history of alcohol use. GI and surgery were consulted in the ED , hospitalist was asked to admit the patient for further management. ED Course: VITAL SIGNS Frederic Jul 16, 2020 11:14 CHARMAINE Canales Cullen BP: 131/77, Pulse: 130, Resp: 26, Temp: 99.8 (Oral), Pain: 8, O2 sat: 96 on ( Room Air), Time: 07/16/2020 11:14. VITAL SIGNS Frederic Jul 16, 2020 14:30 CHARMAINE Estes Miranda BP: 112/78, Pulse: 126, Resp: 22, Pain: 10, O2 sat: 96 on (Room Air), Time: 07/16 14:30. VITAL SIGNS Frederic Jul 16, 2020 13:30 CHARMAINE Estes Miranda BP: 123/69, Pulse: 124, Resp: 26, O2 sat: 94 on (Room Air), Time: 07/16/2020 13: 30. omeprazole CAPSULE,DELAYED RELEASE (ENTERIC COATED) : Strength - 20 mg : ORAL Patient Dose: 1 tab(s) Oral 2 times a day. folic acid oral tablet : Strength - 1 mg : ORAL Patient Dose: 1 tab(s) Oral once a day. Hospitalist ROS - Review of Systems Other: Complete review of systems have been assessed and discussed with the patient. Negative and positive pertinent symptoms noted in the HPI; ALL other systems are reviewed and negative. Hospitalist History - Past Medical History Source: patient (BPH, alcohol abuse, PTSD) - Past Surgical History Past Surgical History: reports: Other (Right knee surgery, hernia repair, ganglion cyst removal of the left arm, bilateral wrist surgery.) - Family History Family History: reports: no pertinent history (denies family hx of CAD) - Social History Smoking Status: Never smoker Alcohol: reports: Heavy Activity level: independent ambulation Hospitalist Results - Labs Result Diagrams: 07/16/20 11:33 07/16/20 11:33 Lab results: WBC 10.8 thou/uL (4.8-10.8) 07/16/20 11:33 Hgb 9.8 g/dL (14.0-18.0) L 07/16/20 11:33 Hct 30.3 % (42.0-52.0) L 07/16/20 11:33 MCV 81.8 fL (78.0-98.0) 07/16/20 11:33 Plt Count 370 thou/uL (130-400) 07/16/20 11:33 Neutrophils % 75.9 % (42.0-75.0) H 07/16/20 11:33 Sodium 131 mmol/L (136-145) L 07/16/20 11:33 Potassium 3.5 mmol/L (3.5-5.1) 07/16/20 11:33 Chloride 94 mmol/L (98-107) L 07/16/20 11:33 Carbon Dioxide 22 mmol/L (22-29) 07/16/20 11:33 BUN 6 mg/dL (8.9-20.6) L 07/16/20 11:33 Creatinine 0.83 mg/dL (0.7-1.3) 07/16/20 11:33 Glucose 269 mg/dL (70-105) H 07/16/20 11:33 Lactic Acid 2.7 mmol/L (0.5-2.2) H 07/16/20 14:33 Calcium 8.5 mg/dL (7.8-10.44) 07/16/20 11:33 Total Bilirubin 3.2 mg/dL (0.2-1.2) H 07/16/20 11:33 AST 181 U/L (5-34) H 07/16/20 11:33 ALT 46 U/L (8-55) 07/16/20 11:33 Alkaline Phosphatase 285 U/L (40-110) H 07/16/20 11:33 Serum Total Protein 8.0 g/dL (6.0-8.3) 07/16/20 11:33 Albumin 3.4 g/dL (3.5-5.0) L 07/16/20 11:33 Lipase 274 U/L (8-78) H 07/16/20 11:33 Urine Ketones Negative mg/dL (Negative) 07/16/20 11:22 Urine Blood Negative (Negative) 07/16/20 11:22 Urine Nitrite Negative (Negative) 07/16/20 11:22 Ur Leukocyte Esterase Negative Heather/uL (Negative) 07/16/20 11:22 Urine RBC None Seen HPF (0-3) 07/16/20 11:22 Urine WBC 7-10 HPF (0-3) A 07/16/20 11:22 Ur Squamous Epith Cells 0-3 HPF (0-3) 07/16/20 11:22 Urine Bacteria None Seen HPF (None Seen) 07/16/20 11:22 - Radiology Interpretation CT scan - abdomen Additional Comment: CHEST 1 VIEW: HISTORY: Abdominal pain. COMPARISON: 02/13/2020. FINDINGS: Heart size is normal. The lungs are clear. IMPRESSION: No significant acute intrathoracic disease. Stable from prior study. EXAM: US Gallbladder RUQ CLINICAL HISTORY: Abdominal pain, x2. COMPARISON: None. FINDINGS: Pancreas: Obscured by bowel gas Liver:Increased hepatic parenchymal echotexture may be due to hepatic steatosis or hepatocellular dis ease. Limited evaluation for hepatic masses and intrahepatic biliary dilatation. Right hepatic lobe: 20.8 cm Gallbladder: Gallbladder wall is thickened. Gallbladder is contracted which may contribute to gallbla dder wall prominence. Possible sludge. No gallstones. Photographic Restorer reports pericholecystic fluid. [place] sign:Negative Portal Vein: Cannot be adequately assessed Bile ducts: Cannot be adequately assessed Right kidney: No hydronephrosis. Right kidney measures 11.7 cm in length. IMPRESSION: 1. Suboptimal evaluation of the gallbladder. There does appear to be pericholecystic fluid. Without d efinite cholelithiasis or a [place] sign. If there is concern for acalculous cholecystitis, consider HIDA scan. 2. Hepatomegaly and fatty infiltration liver EXAM: CT ABDOMEN AND PELVIS HISTORY: Previous appendectomy. 2 weeks of abdominal pain, worsening. COMPARISON: CT aortic dissection protocol 02/13/2020. Procedure: Multiple contiguous axial images were obtained and a CT of the abdomen and pelvis with IV contrast. C oronal reformats were performed. FINDINGS: Lower Chest: Dependent atelectatic changes. Vessels: Normal caliber aorta. No periaortic fat stranding . Heart: Normal heart size. No significant pericardial fluid. Abdomen: Portal vein:Patent. Gallbladder: Mild pericholecystic fluid. Correlate for cholecystitis. Liver: Diffuse hypoattenuation compatible with hepatic steatosis. Hepatomegaly, unchanged. Pancreas: within normal limits. Spleen: within normal limits. Adrenals: within normal limits. Kidneys: Symmetric enhancement. No obstructive uropathy. Peritoneum: Mild stranding of the abdominal mesentery. Small amount of residual fluid is suspected. Bowel: Limited evaluation due to lack of oral contrast administration. Multiple normal caliber small bowel loops. Normal ileocecal junction. Surgically absent appendix. Decompressed colon. Occasional diverticulum. Mesentery and Retroperitoneum: No enlarged mesenteric or retroperitoneal lymph nodes. Abdominal Wall: Small umbilical hernia containing mesenteric fat. Pelvis: Reproductive Organs: Reproductive organs are unremarkable. Pelvis: No mass, lymphadenopathy, free air or free fluid. Bladder: Punctate hyperdensities in the lumen of the urinary bladder. Correlate for bladder calculi. Bladder mucosa is also prominent. Correlate for cystitis. Bones: Unilateral L5 pars defect. No spondylolisthesis. IMPRESSION: 1. Hepatic steatosis and hepatomegaly. 2. No obstructive uropathy. 3. No bowel obstruction. 4. Possible cholecystitis. Consider gallbladder ultrasound. 5. Possible cystitis and bladder calculi. Hospitalist H&P A/P - Plan Plan: PHYSICAL EXAM: General Appearance: Alert, oriented, resting comfortably, no apparent distress, well developed/nourished. HEENT: Normocephalic/atraumatic, moist mucous membrane, normal ENT inspection, normal tones. PERRLA, no scleral icterus, normal conjunctiva Neck: Supple, normal inspection, no JVD Respiratory: Lungs are clear bilaterally, normal breath sounds, no accessory muscle use Cardiovascular: Regular rate, regular rhythm, no murmur, no rubs Abdomen: distended, firm. diffuse tenderness. hypoactive bowel sound Back: Normal inspection, no CVA tenderness Extremities: No clubbing, no cyanosis, no edema Psych/Mental Status: Normal affect, speech, non-pressured, AAO x 3 Neurologic: AAO x 3; Cranial nerves II - XII intact. CN II-XII are intact. Skin: Warm/Dry, Normal Color, no rashes Assessment and plan: This is a pleasant 44 years old gentleman, who has significant past medical history of alcohol abuse, alcohol induced pancreatitis, depression/PTSD , GERD, presented to the ED with 2 weeks history of abdominal pain and progressively worsened this morning. #Abdominal pain-unclear etiology, possible pancreatitis versus acalculus cholecystitis. No evidence of obstructions on CT #Mild pancreatitis-alcohol induced #Elevated LFT secondary to above. Doubt cholangitis #Alcohol abuse with history of alcohol withdrawal, last drink this morning #GERD #BPH 07/16/2020 Patient will be admitted to surgical floor for further evaluation. We will continue with empiric IV antibiotics with Levaquin and Flagyl. Aggressive IV fluid hydration. N.p.o. check HIDA scan to r/o acalculous cholecytitis or biliary dyskinesia Both GI and surgery were consulted in the ED, await for further recommendations Patient is high risk for alcohol withdrawal/DT. We will start him on scheduled Librium for DT prophylaxis, banana bag, thiamine/folate. Patient has been counseled with regard to alcohol cessation. SW consult PPI twice daily Follow BCx, AM labs DVT prophylaxis: SCD
[2020-07-16] MEDS ORDERED: Bisacodyl 5 MG TAB PO PRN (16:33)
[2020-07-16] MEDS ORDERED: Ondansetron PF 4 MG/2 ML Vial IVP PRN (16:33)
[2020-07-16] MEDS ORDERED: Bisacodyl 10 MG SUPP PR PRN (16:33)
[2020-07-16] MEDS ORDERED: Senokot S 8.6-50 MG TAB PO PRN (16:33)
[2020-07-16] MEDS ORDERED: Acetaminophen 325 MG TAB PO PRN (16:33)
[2020-07-16] MEDS ORDERED: Lorazepam 2 MG/ML VIAL ONE ×2 (16:44→17:30)
[2020-07-16] MEDS ORDERED: Labetalol HCl 100 MG/20 ML VIAL ONE (17:58)
[2020-07-16] MEDS ORDERED: cloNIDine 0.1mg/24 Hour PATCH TD SCH (18:15)
--- NOTE | 2020-07-16 19:27 | CON ---
DATE OF CONSULTATION: 07/16/2020 REQUESTING PHYSICIAN: Dr. Frank Clement. REASON FOR CONSULTATION: Abdominal pain and elevated LFTs. HISTORY OF PRESENT ILLNESS: Eligio Fields is a 44-year-old man with a history of obesity, PTSD, and long-term chronic very heavy alcohol abuse. He has had a prior episode of alcoholic pancreatitis. He has a history of severe esophagitis as well. He has been seen by my colleague, Dr. Burciaga during previous hospitalizations for alcohol-related pancreatitis in October 2019 and January 2020. The patient has continued to drink alcohol quite heavily despite multiple problems it has caused him. He is being admitted from the ER today after presenting with two weeks of intermittent abdominal pain, but significantly worsening over the course of today. This is primarily in the upper abdomen. He feels as if his abdomen is distended. He had some loose stools. There has been no bleeding. No nausea or vomiting with this. No fevers or chills. On presentation, labs show chronic anemia with hemoglobin at baseline 9.8, lipase mildly elevated to 274, and some elevation in LFTs with total bilirubin 3.2, alkaline phosphatase 285, AST 181, ALT 46. Abdominal ultrasound is showing gallbladder thickening and contraction as well as pericholecystic fluid, but Gama sign was negative and the bile duct could not be assessed due to his body habitus. CT of the abdomen and pelvis again suggest pericholecystic fluid, but normal appearing pancreas and bowel. The patient is tachycardic, feeling a bit jittery. He said his last alcoholic beverage was early this morning. REVIEW OF SYSTEMS: Full review of systems including constitutional, head, eyes, ears, nose, throat, GI, , cardiovascular, respiratory, musculoskeletal, neurologic systems is negative except as noted in the HPI. PAST MEDICAL HISTORY: Alcoholic pancreatitis, severe esophagitis, alcohol abuse, ongoing hypertension, BPH, PTSD, obesity, knee surgery, wrist surgery, delirium tremens, hernia repair, insomnia, peripheral neuropathy, left ganglion cyst removed from the left wrist. FAMILY HISTORY: Negative for GI malignancy. SOCIAL HISTORY: The patient drinks alcohol quite heavily. He says he drinks "whenever I'm awake." His last drink was this morning. He will have half a gallon of whiskey or vodka per day. No drug use. He does smoke. ALLERGIES: ERYTHROMYCIN. OUTPATIENT MEDICATIONS: 1. Omeprazole 20 mg daily. 2. Folic acid 1 mg daily. PHYSICAL EXAMINATION: VITAL SIGNS: Afebrile. Pulse 118, blood pressure 151/99, 95% oxygen saturation on room air. GENERAL: A 44-year-old man lying in bed, in mild distress, mildly anxious. MENTAL: He is alert and fully oriented. He can answer questions appropriately. SKIN: No jaundice no rashes were palpable. EYES: No scleral icterus. Extraocular movements intact. ENT: Mucous membranes moist. No oral lesions. LYMPH: No submandibular supraclavicular lymphadenopathy. THYROID: Nontender to palpation. HEART: Regular, tachycardia. LUNGS: Distant breath sounds due to body habitus. No respiratory distress. No wheezing appreciated. ABDOMEN: He is obese. There is some mild distention, but is tympanitic to percussion. Tender to palpation in the upper abdomen throughout. No guarding or rebound tenderness. EXTREMITIES: No peripheral edema. VESSELS: Radial pulses 2+ bilaterally. NEURO: Cranial nerves 2 through 12 intact bilaterally. No focal deficits. LABORATORY STUDIES: WBC 10.8, hemoglobin 9.8 which is at his baseline, platelets 370, MCV 81.8. Sodium 131, potassium 3.5, BUN 6, creatinine 0.83. Lipase 274, total bilirubin 3.2, alkaline phosphatase 285, AST 181, ALT 46, albumin 3.4. Urinalysis shows 7 to 10 wbc's. Lactic acid 2.7. IMAGING STUDIES: Chest x-ray showed no acute processes. Abdominal ultrasound showed fatty liver, gallbladder thickening and contraction with pericholecystic fluid, but Gama sign negative. Unable to assess the bile ducts due to body habitus. CT of the abdomen and pelvis demonstrated fatty liver and hepatomegaly. There is pericholecystic fluid, but normal appearing pancreas and bowel. There are some bladder calculi as well. ASSESSMENT AND PLAN: 1. Abdominal pain, upper to generalized, progressive over the past couple of weeks. 2. Elevated LFTs. 3. Alcoholic steatohepatitis. Note, the patient does have some mild lipase elevation, but pancreas appears normal on CT imaging. The question is whether this acute presentation represents cholecystitis. I agree with the plan to get a HIDA scan. Gallbladder is contracted with pericholecystic fluid. I have low suspicion for choledocholithiasis or cholangitis, and we are not going to plan on any endoscopic procedure. Follow up results of HIDA scan. Surgery is also being brought on board. Agree with proton pump inhibitor twice daily for now. Trend the LFTs tomorrow. 4. Alcohol withdrawal. The patient is tachycardic and feeling jittery. Agree with the plan for Librium, TRINA protocol with banana bag, etc per primary service. It is going to be important that the patient find a way to quit drinking alcohol going forward in order to avoid similar presentations in the future. Job ID: [id number]
[2020-07-16] MEDS ORDERED: metroNIDAZOLE 500 MG in Premix Bag 1 BAG IVPB SCH (22:00)
[2020-07-16] MEDS ORDERED: Pantoprazole 40 MG VIAL ONE (22:04)
[2020-07-16] MEDS ORDERED: chlordiazePOXIDE HCl 25 MG CAP ONE (22:04)
[2020-07-16] MEDS: chlordiazePOXIDE HCl 25 MG CAP PO SCH (22:17)
[2020-07-16] MEDS: Pantoprazole 40 MG VIAL IVP SCH (22:18)
[2020-07-16] MEDS: Multivitamins, Adult 10 ML, Folic Acid 1 MG, Thiamine HCl 100 MG in Dextrose 5 %-0.45 %... IV SCH (22:55)
[2020-07-16] MEDS ORDERED: HYDROcodone/Acetaminophen 5/325 mg Tablet ONE (23:01)
[2020-07-16] MEDS: HYDROcodone/Acetaminophen 5/325 mg Tablet PO PRN (23:05)
[2020-07-17 02:13] VITALS: BMI 35.6
[2020-07-17] MEDS: Morphine 4 MG/ML VIAL SLOW IVP PRN ×3 (02:36→20:40)
[2020-07-17] MEDS: Sodium Chloride 0.9% 1,000 ML IV SCH ×3 (02:38→14:01)
[2020-07-17 04:52] LABS: #Basophils 0.1 thou/uL (0.0-0.2); #Eosinphils 0.1 thou/uL (0.0-0.7); #Lymphocytes 0.9 thou/uL (1.20-3.40); #Monocytes 1.1 thou/uL (0.11-0.59); #Neutrophils 9.4 thou/uL (1.40-6.50); %Basophils 0.6 % (0.0-1.0); %Eosinophils 0.9 % (0.0-10.0); %Lymphocytes 7.9 % (21.0-51.0); %Monocytes 9.7 % (0.0-10.0); %Neutrophils 80.9 % (42.0-75.0); Hemoglobin 8.6 g/dL (14.0-18.0); Mean Corpuscular HGB CONC 30.9 g/dL (32.0-36.0); Mean Corpuscular Hemoglobin 25.8 pg (27.0-31.0); Mean Corpuscular Volume 83.7 fL (78.0-98.0); Mean Platelet Volume 8.6 fL (7.4-10.4); Platelet Count 339 thou/uL (130-400); RBC Distribution Width 17.6 % (11.5-14.5); Red Blood Cell (RBC) Count 3.34 mill/uL (4.70-6.10); White Blood Cell (WBC) Count 11.7 thou/uL (4.8-10.8)
[2020-07-17 04:56] LABS: INR-International Normal Ratio 1.1; Prothrombin Time 14.4 sec (12.0-14.7)
[2020-07-17 05:07] LABS: ALT (SGPT) 36 U/L (8-55); AST (SGOT) 102 U/L (5-34); Albumin 3.1 g/dL (3.5-5.0); Alkaline Phosphatase 234 U/L (40-110); Anion Gap 14 mmol/L (10-20); BUN (Urea Nitrogen) 7 mg/dL (8.9-20.6); Calc. Creatinine Clearance 214 mL/min (70-130); Calcium 7.9 mg/dL (7.8-10.44); Carbon Dioxide 27 mmol/L (22-29); Chloride 96 mmol/L (98-107); Estimated GFR-MDRD Greater than 90; Globulin 4.3 g/dL (2.4-3.5); Glucose 205 mg/dL (70-105); Lipase 240 U/L (8-78); Potassium 3.7 mmol/L (3.5-5.1); Protein, Total 7.4 g/dL (6.0-8.3); Sodium 133 mmol/L (136-145)
[2020-07-17] MEDS: HYDROcodone/Acetaminophen 5/325 mg Tablet PO PRN ×2 (05:08→17:10)
--- NOTE | 2020-07-17 08:54 | PDOC.HOSPP ---
- Subjective Subjective: Patient was seen examined at bedside. Patient still complaining of diffuse abdominal pain. Appreciate input from GI. Patient scheduled to have a HIDA scan done at 10:00 today. He also complained of some short of breath. He is currently on IV fluid hydration, as well as banana bag. He denies any chest pain. No fever. No acute events overnight. - Objective Vital Signs & Weight: Vital Signs (12 hours) Temp Pulse Resp BP BP Pulse Ox 07/17/20 07:54 98.0 F 113 H 22 H 118/82 98 07/17/20 04:00 98.8 F 114 H 21 H 136/87 136/87 95 07/17/20 03:11 94 L 07/17/20 01:32 98.1 F 119 H 22 H 140/88 94 L Weight Weight 263 lb Result Diagrams: 07/17/20 04:29 07/17/20 04:29 Hospitalist ROS - Medication Medications: Active Medications Generic Name Dose Route Start Last Admin Trade Name Freq PRN Reason Stop Dose Admin Hydrocodone Bitart/Acetaminophen 1 tab 07/16/20 16:33 07/17/20 05:08 [place] 5/325 PO 1 tab Q4H PRN Administration Moderate Pain (4-6) Chlordiazepoxide HCl 25 mg 07/16/20 21:00 07/16/20 22:17 Librium PO 25 mg TID IDANIA Administration Levofloxacin 750 mg/ Device 150 mls @ 100 mls/hr 07/16/20 18:00 07/17/20 00: 05 IVPB 150 mls Q24HR IDANIA Administration Multivitamins 10 ml/ Folic 1,011.2 mls @ 100 mls/hr 07/16/20 17:00 07/16/20 22:55 Acid 1 mg/ Thiamine HCl 100 mg IV 1,011.2 mls / Dextrose/Sodium Chloride Q24HR IDANIA Administration Morphine Sulfate 4 mg 07/16/20 16:42 07/17/20 02:36 Morphine SLOW IVP 4 mg Q4H PRN Administration Breakthrough Pain Pantoprazole Sodium 40 mg 07/16/20 21:00 07/16/20 22:18 Protonix IVP 40 mg Q12HR IDANIA Administration Hosp A/P - Plan PHYSICAL EXAM: General Appearance: Alert, oriented, resting comfortably, no apparent distress, well developed/nourished. HEENT: Normocephalic/atraumatic, moist mucous membrane, normal ENT inspection, normal tones. PERRLA, no scleral icterus, normal conjunctiva Neck: Supple, normal inspection, no JVD Respiratory: Lungs are clear bilaterally, normal breath sounds, no accessory muscle use Cardiovascular: Regular rate, regular rhythm, no murmur, no rubs Abdomen: distended, firm. diffuse tenderness. hypoactive bowel sound Back: Normal inspection, no CVA tenderness Extremities: No clubbing, no cyanosis, no edema Psych/Mental Status: Normal affect, speech, non-pressured, AAO x 3 Neurologic: AAO x 3; Cranial nerves II - XII intact. CN II-XII are intact. Skin: Warm/Dry, Normal Color, no rashes Assessment and plan: This is a pleasant 44 years old gentleman, who has significant past medical history of alcohol abuse, alcohol induced pancreatitis, depression/PTSD , GERD, presented to the ED with 2 weeks history of abdominal pain and progressively worsened this morning. #Abdominal pain-unclear etiology, possible pancreatitis versus acalculus cholecystitis. No evidence of obstructions on CT #Mild pancreatitis-alcohol induced #Dyspnea may be related to his abdominal distention, versus possible underlying cardiomyopathy due to history of heavy alcohol use #Elevated LFT secondary to above. Doubt cholangitis #Alcohol abuse with history of alcohol withdrawal #Hepatic steatosis secondary to chronic alcohol abuse #GERD #BPH 07/17/2020 Patient is still complaining of diffuse abdominal pain. His lipase is trending down slightly. His heart rate is improved with IV fluid hydration. His HIDA scan is scheduled to be done at 10 AM today per nursing staff. Appreciate input from GI. With regard to his dyspnea, will need to be mindful which is IV fluid hydration. We will give him a dose of IV Lasix x1. We will check his chest x-ray, BNP, and 2D echo to assess his LV function. I am concerned that he may have underlying cardiomyopathy given his long history of heavy alcohol use. Repeat labs in a.m. Awaiting for surgical input. Continue DT prophylaxis including scheduled Librium, banana bag/multivitamin/thiamine/ folate. Catapres patch was added. Patient is high risk for DTs. Patient was counseled with regards to alcohol cessation. 07/16/2020 Patient will be admitted to surgical floor for further evaluation. We will continue with empiric IV antibiotics with Levaquin and Flagyl. Aggressive IV fluid hydration. N.p.o. check HIDA scan to r/o acalculous cholecytitis or biliary dyskinesia Both GI and surgery were consulted in the ED, await for further recommendations Patient is high risk for alcohol withdrawal/DT. We will start him on scheduled Librium for DT prophylaxis, banana bag, thiamine/folate. Patient has been counseled with regard to alcohol cessation. SW consult PPI twice daily Follow BCx, AM labs DVT prophylaxis: SCD
[2020-07-17] MEDS ORDERED: Furosemide 40 MG/4 ML VIAL SLOW IVP SCH (09:00)
[2020-07-17] MEDS: chlordiazePOXIDE HCl 25 MG CAP PO SCH ×3 (09:25→20:45)
[2020-07-17] MEDS: Folic Acid 1 MG TAB PO SCH (09:25)
[2020-07-17] MEDS: Thiamine 100 MG TAB PO SCH (09:25)
--- NOTE | 2020-07-17 09:39 | RAD ---
Portable frontal chest radiograph: 07/17/2020 COMPARISON: 07/16/2020 HISTORY: Shortness of breath FINDINGS: There is mild linear density in the left lung base which may signify volume loss. No lobar consolidation or alveolar edema. No pneumothorax. IMPRESSION: Mild increased density in the left lung base most consistent with atelectasis. Recommend follow-up imaging if clinically warranted.
--- NOTE | 2020-07-17 10:24 | PRG ---
DATE OF SERVICE: 07/17/2020 SUBJECTIVE: Mr. Fields feels about the same. Upper abdominal pain persists. No vomiting. He has been afebrile. HIDA scan is set to recur within the next few hours. OBJECTIVE: VITAL SIGNS: Temperature 98.0, pulse 113, blood pressure 118/82, 98% oxygen saturation on 3 L nasal cannula. GENERAL: In no acute distress, a little bit anxious. HEART: Regular. Tachycardia. LUNGS: Clear to auscultation bilaterally. ABDOMEN: Bowel sounds hypoactive. Distended and tympanitic. Some tenderness to palpation in the epigastrium. EXTREMITIES: No peripheral edema. LABORATORY STUDIES: WBC 11.7, hemoglobin 8.6, platelets 339. INR 1.1. Sodium 133, potassium 3.7, BUN 7, creatinine 0.75, total bilirubin 4.0, alkaline phosphatase 234, AST 102, ALT 36. BNP only 40.7. Albumin 3.1, lipase 240. ASSESSMENT AND PLAN: 1. Abdominal pain, mostly in the upper abdomen. 2. Elevated LFTs. 3. Alcoholic steatohepatitis. The question remains as whether the patient's acute presentation represents cholecystitis. He does have pericholecystic fluid around the contracted gallbladder. Follow up results of the HIDA scan. At this point, we are not planning on any endoscopic investigations, but I suppose that the HIDA scan is normal. Esophagogastroduodenoscopy could be considered later this admission. Continue with the twice daily proton pump inhibitor for now. Noted the mild lipase elevation, but absence of peripancreatic inflammatory changes on the CT scan. I would keep him n.p.o. for now. 4. Alcohol withdrawal. The patient is receiving benzodiazepines per Primary Service. Job ID: [id number]
[2020-07-17 12:28] LABS: SARS-CoV-2 MS2 Positive; SARS-CoV-2 N Gene Negative; SARS-CoV-2 S Gene Negative; SARS-CoV-2 by NAA Not Detected (NotDetected); SARS-CoV-2 orf1ab Negative
[2020-07-17] MEDS: Polyethylene Glycol 3350 17 GM Packet PO SCH (13:56)
[2020-07-17] MEDS: Pantoprazole 40 MG VIAL IVP SCH ×2 (14:01→20:40)
[2020-07-17] MEDS: metroNIDAZOLE 500 MG in Premix Bag 1 BAG IVPB SCH ×2 (14:02→17:08)
--- NOTE | 2020-07-17 17:35 | NM ---
Radionucleotide hepatobiliary scan and gallbladder ejection fraction HISTORY: Abnormal liver function tests. Abdomen pain. FINDINGS: Early images show physiologic uptake of radiotracer throughout the liver. Gallbladder seen at 14 minutes. Uptake faintly visualized within the small bowel at 1 hour. After administration of CCK analog, there is progressive excretion of radiotracer from the gallbladder. Ejection fraction tamika culated at 56%. IMPRESSION : No evidence of biliary obstruction. Normal gallbladder ejection fraction.
[2020-07-17] MEDS: Multivitamins, Adult 10 ML, Folic Acid 1 MG, Thiamine HCl 100 MG in Dextrose 5 %-0.45 %... IV SCH (18:36)
[2020-07-18] MEDS: Morphine 4 MG/ML VIAL SLOW IVP PRN ×4 (02:10→20:33)
[2020-07-18] MEDS: metroNIDAZOLE 500 MG in Premix Bag 1 BAG IVPB SCH ×3 (02:11→17:23)
[2020-07-18 04:36] LABS: #Eosinphils 0.1 thou/uL (0.0-0.7); #Lymphocytes 0.9 thou/uL (1.20-3.40); #Neutrophils 8.8 thou/uL (1.40-6.50); %Basophils 0.2 % (0.0-1.0); %Eosinophils 0.6 % (0.0-10.0); %Lymphocytes 8.4 % (21.0-51.0); %Monocytes 9.1 % (0.0-10.0); %Neutrophils 81.7 % (42.0-75.0); Hemoglobin 8.6 g/dL (14.0-18.0); Mean Corpuscular HGB CONC 30.9 g/dL (32.0-36.0); Mean Corpuscular Volume 84.1 fL (78.0-98.0); Mean Platelet Volume 8.3 fL (7.4-10.4); Platelet Count 324 thou/uL (130-400); RBC Distribution Width 17.8 % (11.5-14.5); Red Blood Cell (RBC) Count 3.31 mill/uL (4.70-6.10); White Blood Cell (WBC) Count 10.7 thou/uL (4.8-10.8)
[2020-07-18 05:41] LABS: ALT (SGPT) 39 U/L (8-55); AST (SGOT) 147 U/L (5-34); Albumin 2.9 g/dL (3.5-5.0); Alkaline Phosphatase 227 U/L (40-110); Anion Gap 11 mmol/L (10-20); BUN (Urea Nitrogen) 5 mg/dL (8.9-20.6); Bilirubin, Total 5.1 mg/dL (0.2-1.2); CRP (Inflammatory) 17.66 mg/dL (= or < 0.5); Calc. Creatinine Clearance 211 mL/min (70-130); Calcium 7.9 mg/dL (7.8-10.44); Carbon Dioxide 27 mmol/L (22-29); Chloride 95 mmol/L (98-107); Cholesterol 168 mg/dl (< 200 Desired); Estimated GFR-MDRD Greater than 90; Globulin 4.1 g/dL (2.4-3.5); Glucose 214 mg/dL (70-105); HDL Cholesterol Less than 8 mg/dL (>60 Neg Risk); Lipase 106 U/L (8-78); Magnesium 1.4 mg/dL (1.6-2.6); Potassium 3.3 mmol/L (3.5-5.1); Sodium 130 mmol/L (136-145); Triglycerides 385 mg/dL (Less than 150)
[2020-07-18 05:56] LABS: Cardiac Risk TEST NOT PERFORMED (Less than 4.5)
[2020-07-18] MEDS ORDERED: Magnesium Sulfate 4 GM in Sodium Chloride 0.9% 250 ML 250 ML IVPB SCH (07:45)
[2020-07-18] MEDS ORDERED: Potassium Chloride 20 MEQ TAB PO SCH (07:45)
[2020-07-18] MEDS: Pantoprazole 40 MG VIAL IVP SCH ×2 (08:43→20:34)
[2020-07-18] MEDS: chlordiazePOXIDE HCl 25 MG CAP PO SCH ×3 (08:45→20:34)
[2020-07-18] MEDS: Thiamine 100 MG TAB PO SCH (08:45)
[2020-07-18] MEDS: Folic Acid 1 MG TAB PO SCH (08:45)
[2020-07-18] MEDS: Polyethylene Glycol 3350 17 GM Packet PO SCH (08:45)
[2020-07-18] MEDS: HYDROcodone/Acetaminophen 5/325 mg Tablet PO PRN ×4 (10:28→22:45)
--- NOTE | 2020-07-18 10:28 | PDOC.HOSPP ---
- Subjective Subjective: Patient was seen examined at bedside. Patient continued to complain of abdominal pain and discomfort sharp shooting pain. His lipase has been trending down slightly. He had no fever. His T feel he continued to increase. His HIDA scan was unremarkable. He had a normal bowel movement this morning. His electrolytes are currently being repleted. Chest x-ray review White count has normalized. Patient had a T-max of 99. Vital signs are otherwise unremarkable. - Objective Vital Signs & Weight: Vital Signs (12 hours) Temp Pulse Resp BP BP Pulse Ox 07/18/20 08:36 98.7 F 108 H 20 113/70 96 07/18/20 08:00 113/70 07/18/20 04:50 99.0 F 120 H 17 136/86 94 L 07/18/20 01:55 99.0 F 72 15 109/59 L 93 L Weight Weight 263 lb Result Diagrams: 07/18/20 04:19 07/18/20 04:19 Hospitalist ROS - Medication Medications: Active Medications Generic Name Dose Route Start Last Admin Trade Name Freq PRN Reason Stop Dose Admin Hydrocodone Bitart/Acetaminophen 1 tab 07/16/20 16:33 07/17/20 17:10 [place] 5/325 PO 1 tab Q4H PRN Administration Moderate Pain (4-6) Chlordiazepoxide HCl 25 mg 07/16/20 21:00 07/18/20 08:45 Librium PO 25 mg TID IDANIA Administration Folic Acid 1 mg 07/17/20 09:00 07/18/20 08:45 Folvite PO 1 mg DAILY IDANIA Administration Levofloxacin 750 mg/ Device 150 mls @ 100 mls/hr 07/16/20 18:00 07/17/20 17: 08 IVPB 150 mls Q24HR IDANIA Administration Multivitamins 10 ml/ Folic 1,011.2 mls @ 100 mls/hr 07/16/20 17:00 07/17/20 18:36 Acid 1 mg/ Thiamine HCl 100 mg IV 1,011.2 mls / Dextrose/Sodium Chloride Q24HR IDANIA Administration Metronidazole 500 mg/ Device 100 mls @ 100 mls/hr 07/17/20 10:00 07/18/20 08: 43 IVPB 100 mls 0200,1000,1800 IDANIA Administration Sodium Chloride 1,000 mls @ 100 mls/hr 07/17/20 09:00 07/17/20 14:01 Normal Saline 0.9% IV 1,000 mls .Q10H IDANIA Administration Magnesium Sulfate 4 gm/ Sodium 258 mls @ 86 mls/hr 07/18/20 07:45 07/18/20 08 :44 Chloride IVPB 07/18/20 12:00 258 mls NOW IDANIA Administration Morphine Sulfate 4 mg 07/16/20 16:42 07/18/20 08:41 Morphine SLOW IVP 4 mg Q4H PRN Administration Breakthrough Pain Pantoprazole Sodium 40 mg 07/16/20 21:00 07/18/20 08:43 Protonix IVP 40 mg Q12HR IDANIA Administration Polyethylene Glycol 17 gm 07/17/20 09:00 07/18/20 08:45 Miralax PO 17 gm DAILY IDANIA Administration Sodium Chloride 10 ml 07/18/20 09:00 07/18/20 08:45 Flush - Normal Saline IVF 10 ml Q12HR IDANIA Administration Sodium Chloride 10 ml 07/18/20 07:39 07/18/20 08:45 Flush - Normal Saline IVF 10 ml PRN PRN Administration Saline Flush Thiamine HCl 100 mg 07/17/20 09:00 07/18/20 08:45 Thiamine PO 100 mg DAILY IDANIA Administration Hosp A/P - Plan PHYSICAL EXAM: General Appearance: Alert, oriented, resting comfortably, no apparent distress, well developed/nourished. HEENT: Normocephalic/atraumatic, moist mucous membrane, normal ENT inspection, normal tones. PERRLA, no scleral icterus, normal conjunctiva Neck: Supple, normal inspection, no JVD Respiratory: Lungs are clear bilaterally, normal breath sounds, no accessory muscle use Cardiovascular: Regular rate, regular rhythm, no murmur, no rubs Abdomen: distended, firm. diffuse tenderness. hypoactive bowel sound Back: Normal inspection, no CVA tenderness Extremities: No clubbing, no cyanosis, no edema Psych/Mental Status: Normal affect, speech, non-pressured, AAO x 3 Neurologic: AAO x 3; Cranial nerves II - XII intact. CN II-XII are intact. Skin: Warm/Dry, Normal Color, no rashes Assessment and plan: This is a pleasant 44 years old gentleman, who has significant past medical history of alcohol abuse, alcohol induced pancreatitis, depression/PTSD , GERD, presented to the ED with 2 weeks history of abdominal pain and progressively worsened this morning. #Abdominal pain-unclear etiology, possible pancreatitis versus acalculus cholecystitis. No evidence of obstructions on CT #Mild pancreatitis-alcohol induced #Dyspnea may be related to his abdominal distention, versus possible underlying cardiomyopathy due to history of heavy alcohol use #Elevated LFT secondary to above. Doubt cholangitis #Hyperbilirubinemia #Anemia, normocytic anemia #Alcohol abuse with history of alcohol withdrawal #Hepatic steatosis secondary to chronic alcohol abuse #GERD #BPH 07/18/2020 Patient's still complaining of diffuse abdominal pain, pain medication helped but pain recurs after medication wear off. His T bili is rising, unclear whether or not this is related to his heavy alcohol use versus other etiologies. He is slightly anemic, but also on IV fluid hydration. Will check iron profile, LDH. We will send a fractionated T bili. His HIDA scan was unremarkable. We will check an MRCP to rule out possible small common bile duct stone although I doubt. Will keep him NPO, except ice chips. IVF hydration , supportive cares. Cont empiric IV abx. Appreciate GI inputs. Cont PPI empirically. 07/17/2020 Patient is still complaining of diffuse abdominal pain. His lipase is trending down slightly. His heart rate is improved with IV fluid hydration. His HIDA scan is scheduled to be done at 10 AM today per nursing staff. Appreciate input from GI. With regard to his dyspnea, will need to be mindful which is IV fluid hydration. We will give him a dose of IV Lasix x1. We will check his chest x-ray, BNP, and 2D echo to assess his LV function. I am concerned that he may have underlying cardiomyopathy given his long history of heavy alcohol use. Repeat labs in a.m. Awaiting for surgical input. Continue DT prophylaxis including scheduled Librium, banana bag/multivitamin/thiamine/ folate. Catapres patch was added. Patient is high risk for DTs. Patient was counseled with regards to alcohol cessation. 07/16/2020 Patient will be admitted to surgical floor for further evaluation. We will continue with empiric IV antibiotics with Levaquin and Flagyl. Aggressive IV fluid hydration. N.p.o. check HIDA scan to r/o acalculous cholecytitis or biliary dyskinesia Both GI and surgery were consulted in the ED, await for further recommendations Patient is high risk for alcohol withdrawal/DT. We will start him on scheduled Librium for DT prophylaxis, banana bag, thiamine/folate. Patient has been counseled with regard to alcohol cessation. SW consult PPI twice daily Follow BCx, AM labs DVT prophylaxis: SCD
[2020-07-18] MEDS: Sodium Chloride 0.9% 1,000 ML IV SCH (14:33)
[2020-07-18] MEDS: Multivitamins, Adult 10 ML, Folic Acid 1 MG, Thiamine HCl 100 MG in Dextrose 5 %-0.45 %... IV SCH (17:23)
[2020-07-18] MEDS ORDERED: Sodium Chloride 0.9% 1,000 ML IV SCH (20:19)
--- NOTE | 2020-07-18 20:37 | PRG ---
DATE OF SERVICE: 07/18/2020 SUBJECTIVE: Mr. Fields continues to complain of upper abdominal to diffuse abdominal pain. He had a bowel movement this morning. PHYSICAL EXAMINATION: VITAL SIGNS: Temperature 98.3, pulse 108, blood pressure 120/71. GENERAL: He is in no acute distress. Alert and oriented x3. LUNGS: Clear to auscultation bilaterally. HEART: Tachycardic. S1 and S2. ABDOMEN: Diffusely distended, but is soft without guarding. Bowel sounds are present. EXTREMITIES: No lower extremity edema. LABORATORY DATA: White blood cell count 10.7, hemoglobin 8.6, platelets 324. INR 1.1. Sodium 130, potassium 3.3, chloride 95, CO2 of 27, BUN 5, creatinine 0.76, bilirubin 5.1, AST 147, ALT 39, alkaline phosphatase 227, albumin 2.9, lipase 106. IMPRESSION: 1. Acute alcoholic hepatitis. 2. Recurrent alcoholic pancreatitis, mild overall at this point. 3. Alcohol withdrawal. RECOMMENDATIONS: 1. IV fluids. 2. Thiamine and withdrawal precautions. He is on scheduled Librium. 3. I do not see that he needs to be on antibiotics from a GI standpoint. Does not have apparent cholecystitis. 4. He is concerned about his abdominal distention. On review of the CT scan, his liver is markedly enlarged. He also has significant amount of intraperitoneal fat. There is no ascites. Job ID: [id number]
[2020-07-19] MEDS: metroNIDAZOLE 500 MG in Premix Bag 1 BAG IVPB SCH (02:53)
[2020-07-19] MEDS: Morphine 4 MG/ML VIAL SLOW IVP PRN ×2 (02:54→09:05)
[2020-07-19 05:37] LABS: Bilirubin, Direct 4.2 mg/dL (0.1-0.3); Bilirubin, Total 5.5 mg/dL (0.2-1.2)
[2020-07-19 05:42] LABS: ALT (SGPT) 32 U/L (8-55); AST (SGOT) 110 U/L (5-34); Albumin 2.8 g/dL (3.5-5.0); Alkaline Phosphatase 225 U/L (40-110); Anion Gap 11 mmol/L (10-20); BUN (Urea Nitrogen) Less than 4 mg/dL (8.9-20.6); Bilirubin, Total 5.5 mg/dL (0.2-1.2); Calc. Creatinine Clearance 236 mL/min (70-130); Calcium 7.7 mg/dL (7.8-10.44); Carbon Dioxide 27 mmol/L (22-29); Chloride 97 mmol/L (98-107); Estimated GFR-MDRD Greater than 90; Globulin 3.9 g/dL (2.4-3.5); Glucose 129 mg/dL (70-105); Magnesium 1.9 mg/dL (1.6-2.6); Potassium 3.4 mmol/L (3.5-5.1); Protein, Total 6.7 g/dL (6.0-8.3); Sodium 132 mmol/L (136-145)
[2020-07-19 05:53] LABS: #Eosinphils 0.2 thou/uL (0.0-0.7); #Neutrophils 9.3 thou/uL (1.40-6.50); %Basophils 0.1 % (0.0-1.0); %Eosinophils 2.1 % (0.0-10.0); %Lymphocytes 8.4 % (21.0-51.0); %Neutrophils 80.5 % (42.0-75.0); Anisocytosis SLIGHT = 6-15 cells (100X) (0-5/hpf); Hemoglobin 8.8 g/dL (14.0-18.0); MDiff Complete? YES; Mean Corpuscular HGB CONC 30.1 g/dL (32.0-36.0); Mean Corpuscular Hemoglobin 25.9 pg (27.0-31.0); Mean Corpuscular Volume 85.9 fL (78.0-98.0); Mean Platelet Volume 8.2 fL (7.4-10.4); Platelet Count 360 thou/uL (130-400); Polychromasia SLIGHT = 2-3 cells (100X) (0-2/hpf); RBC Distribution Width 18.5 % (11.5-14.5); Red Blood Cell (RBC) Count 3.39 mill/uL (4.70-6.10); White Blood Cell (WBC) Count 11.5 thou/uL (4.8-10.8)
[2020-07-19 06:08] LABS: Ferritin 84.56 ng/mL (22-322)
[2020-07-19] MEDS: Pantoprazole 40 MG VIAL IVP SCH (09:06)
[2020-07-19] MEDS: chlordiazePOXIDE HCl 25 MG CAP PO SCH ×3 (09:07→20:27)
[2020-07-19] MEDS: Polyethylene Glycol 3350 17 GM Packet PO SCH (09:07)
[2020-07-19] MEDS: Folic Acid 1 MG TAB PO SCH (09:07)
[2020-07-19] MEDS: Thiamine 100 MG TAB PO SCH (09:07)
[2020-07-19] MEDS ORDERED: Furosemide 20 MG TAB PO SCH (09:15)
--- NOTE | 2020-07-19 09:23 | PDOC.HOSPP ---
- Subjective Subjective: still complaints of left side abd pain, but wanting to each. Pt has been requesting pain meds regularly. + BM - Objective Vital Signs & Weight: Vital Signs (12 hours) Temp Pulse Resp BP Pulse Ox 07/19/20 07:39 98.6 F 116 H 22 H 128/80 90 L 07/19/20 04:00 98.7 F 116 H 24 H 144/80 H 90 L 07/19/20 00:00 97.9 F 111 H 15 135/85 94 L Weight Weight 263 lb I&O: 07/18/20 07/19/20 07/20/20 06:59 06:59 06:59 Intake Total 2136 Balance 2136 Result Diagrams: 07/19/20 04:11 07/19/20 04:11 Hospitalist ROS - Medication Medications: Active Medications Generic Name Dose Route Start Last Admin Trade Name Freq PRN Reason Stop Dose Admin Hydrocodone Bitart/Acetaminophen 1 tab 07/16/20 16:33 07/18/20 22:45 [place] 5/325 PO 1 tab Q4H PRN Administration Moderate Pain (4-6) Chlordiazepoxide HCl 25 mg 07/16/20 21:00 07/19/20 09:07 Librium PO 25 mg TID IDANIA Administration Folic Acid 1 mg 07/17/20 09:00 07/19/20 09:07 Folvite PO 1 mg DAILY IDANIA Administration Multivitamins 10 ml/ Folic 1,011.2 mls @ 100 mls/hr 07/16/20 17:00 07/18/20 17:23 Acid 1 mg/ Thiamine HCl 100 mg IV 1,011.2 mls / Dextrose/Sodium Chloride Q24HR IDANIA Administration Morphine Sulfate 4 mg 07/16/20 16:42 07/19/20 09:05 Morphine SLOW IVP 4 mg Q4H PRN Administration Breakthrough Pain Polyethylene Glycol 17 gm 07/17/20 09:00 07/19/20 09:07 Miralax PO Not Given DAILY IDANIA Sodium Chloride 10 ml 07/18/20 09:00 07/19/20 09:07 Flush - Normal Saline IVF 10 ml Q12HR IDANIA Administration Sodium Chloride 10 ml 07/18/20 07:39 07/18/20 08:45 Flush - Normal Saline IVF 10 ml PRN PRN Administration Saline Flush Thiamine HCl 100 mg 07/17/20 09:00 07/19/20 09:07 Thiamine PO 100 mg DAILY IDANIA Administration Hosp A/P - Plan PHYSICAL EXAM: General Appearance: Alert, oriented, resting comfortably, no apparent distress, well developed/nourished. HEENT: Normocephalic/atraumatic, moist mucous membrane, normal ENT inspection, normal tones. PERRLA, no scleral icterus, normal conjunctiva Neck: Supple, normal inspection, no JVD Respiratory: Lungs are clear bilaterally, normal breath sounds, no accessory muscle use Cardiovascular: Regular rate, regular rhythm, no murmur, no rubs Abdomen: distended, firm. diffuse tenderness. hypoactive bowel sound Back: Normal inspection, no CVA tenderness Extremities: No clubbing, no cyanosis, no edema Psych/Mental Status: Normal affect, speech, non-pressured, AAO x 3 Neurologic: AAO x 3; Cranial nerves II - XII intact. CN II-XII are intact. Skin: Warm/Dry, Normal Color, no rashes Assessment and plan: This is a pleasant 44 years old gentleman, who has significant past medical history of alcohol abuse, alcohol induced pancreatitis, depression/PTSD , GERD, presented to the ED with 2 weeks history of abdominal pain and progressively worsened this morning. #Abdominal pain-unclear etiology, possible pancreatitis versus acalculus cholecystitis. No evidence of obstructions on CT #Mild pancreatitis-alcohol induced #Dyspnea may be related to his abdominal distention, Echo wnl. CXR no evidence of pleural effusion #Elevated LFT secondary to above. Doubt cholangitis #Hyperbilirubinemia #Anemia, normocytic anemia #Alcohol abuse with history of alcohol withdrawal #Hepatic steatosis secondary to chronic alcohol abuse #GERD #BPH 07/19/2020 Patient still complaining of left side abdominal pain, he is having regular bowel movement. Patient has been requesting for pain medications regularly. At the same time, patient also wanted to eat. He did not fit into the MRI machine for MRCP, nor there is a strong indication for it. His abnormal LFTs likely secondary to alcoholic hepatitis. Patient remains afebrile. No evidence of infection. At this time, will discontinue IV antibiotics. Restart him on clear liquid diet. Resume propranolol, continue Catapres patch for rate control and withdrawal symptoms. Continue scheduled Librium, multivitamin supplements including thiamine/folate, banana bag. His T bili appears to be stable. His DF score is 4, no indication for steroids. We will trend his LFTs , advance diet as tolerated. Patient can be transferred to medical floor. Appreciate GI input. DC IV Morphine. No evidence of ascites. D/C IVF, trial of Lasix x 1. Trend LFTs. 07/18/2020 Patient's still complaining of diffuse abdominal pain, pain medication helped but pain recurs after medication wear off. His T bili is rising, unclear whether or not this is related to his heavy alcohol use versus other etiologies. He is slightly anemic, but also on IV fluid hydration. Will check iron profile, LDH. We will send a fractionated T bili. His HIDA scan was unremarkable. We will check an MRCP to rule out possible small common bile duct stone although I doubt. Will keep him NPO, except ice chips. IVF hydration , supportive cares. Cont empiric IV abx. Appreciate GI inputs. Cont PPI empirically. 07/17/2020 Patient is still complaining of diffuse abdominal pain. His lipase is trending down slightly. His heart rate is improved with IV fluid hydration. His HIDA scan is scheduled to be done at 10 AM today per nursing staff. Appreciate input from GI. With regard to his dyspnea, will need to be mindful which is IV fluid hydration. We will give him a dose of IV Lasix x1. We will check his chest x-ray, BNP, and 2D echo to assess his LV function. I am concerned that he may have underlying cardiomyopathy given his long history of heavy alcohol use. Repeat labs in a.m. Awaiting for surgical input. Continue DT prophylaxis including scheduled Librium, banana bag/multivitamin/thiamine/ folate. Catapres patch was added. Patient is high risk for DTs. Patient was counseled with regards to alcohol cessation. 07/16/2020 Patient will be admitted to surgical floor for further evaluation. We will continue with empiric IV antibiotics with Levaquin and Flagyl. Aggressive IV fluid hydration. N.p.o. check HIDA scan to r/o acalculous cholecytitis or biliary dyskinesia Both GI and surgery were consulted in the ED, await for further recommendations Patient is high risk for alcohol withdrawal/DT. We will start him on scheduled Librium for DT prophylaxis, banana bag, thiamine/folate. Patient has been counseled with regard to alcohol cessation. SW consult PPI twice daily Follow BCx, AM labs DVT prophylaxis: SCD
[2020-07-19] MEDS ORDERED: Furosemide 40 MG TAB PO SCH (09:30)
[2020-07-19] MEDS: traMADol HCl 50 MG TAB PO PRN ×2 (10:08→15:27)
--- NOTE | 2020-07-19 12:04 | PRG ---
DATE OF SERVICE: 07/19/2020 SUBJECTIVE: Mr. Fields still complains of abdominal discomfort. His abdomen is tense. He asks appropriate questions about alcoholic hepatitis and his hepatitis and what to do. We discussed that for about 15 minutes. The nurse notes he is having bowel movements. Stools are a little bit loose now, so she is going to hold the MiraLAX. MEDICATIONS: 1. Proscar. 2. Iron. 3. Librium. 4. Dulcolax p.r.n. 5. Tylenol p.r.n. 6. Folic acid daily. 7. Lasix 40 mg once scheduled for tomorrow. 8. Gabapentin. 9. Hydrocodone p.r.n. 10. Multivitamin. 11. Thiamine and folate IV. 12. Protonix 40 mg p.o. b.i.d. 13. Inderal b.i.d. 14. Flomax. 15. Thiamine orally. OBJECTIVE: GENERAL: He is resting in bed. He is a little bit uncomfortable. VITAL SIGNS: Pulse is 116, temperature is 98, blood pressure 120/80. HEENT: He is mildly icteric. His oropharynx is without lesions. NECK: Supple. LUNGS: Clear. HEART: Sinus tachycardia. ABDOMEN: Protuberant. Bowel sounds are positive. There is tympany on exam. EXTREMITIES: Revealed no overt edema. LABORATORY DATA: Sodium 132, potassium 3.4, BUN and creatinine of 4 and 0.6. Iron 34, TIBC 230, both are low; ferritin is 84. Bilirubin is 5.5, direct is 4.2, AST 110, ALT 32, alkaline phosphatase 225, albumin is 2.8, protein 6.7, is elevated at 3.9. Triglycerides were 385. CRP was 16 on admission. Lipase 106 yesterday. B12 of 1097, folate 15. ASSESSMENT: 1. Alcoholic hepatitis. 2. Mild pancreatitis. 3. Abdominal discomfort. He has had a normal HIDA scan. He has had an ultrasound showing hepatomegaly and fatty liver, and he has had a CAT scan showing fatty liver and hepatomegaly. It was without oral contrast and was not very helpful. I have reviewed those films in regard to his severe abdominal distention and that seems to be related to intraperitoneal fat and a large liver. RECOMMENDATIONS: 1. Alcohol avoidance. 2. Oral multivitamin, thiamine, and folate. 3. Stop banana bag, watch out for over-diuresis. 4. He has probably resolved his DTs. He has been here for 3 days now. 5. Would check hepatitis A, B, and C. He shows no signs of hemochromatosis. We will follow along with you. Job ID: [id number]
[2020-07-19] MEDS: HYDROcodone/Acetaminophen 5/325 mg Tablet PO PRN ×3 (12:08→22:30)
[2020-07-19] MEDS: Gabapentin 100 MG CAP PO SCH ×2 (15:26→20:28)
[2020-07-19] MEDS: Propranolol 40 MG TAB PO SCH (20:28)
[2020-07-20] MEDS: HYDROcodone/Acetaminophen 5/325 mg Tablet PO PRN ×5 (02:52→22:36)
[2020-07-20 05:43] LABS: INR-International Normal Ratio 1.2; Prothrombin Time 15.2 sec (12.0-14.7)
[2020-07-20 06:00] LABS: Phosphorus 3.3 mg/dL (2.3-4.7)
[2020-07-20 06:03] LABS: ALT (SGPT) 28 U/L (8-55); AST (SGOT) 99 U/L (5-34); Albumin 2.7 g/dL (3.5-5.0); Alkaline Phosphatase 247 U/L (40-110); Anion Gap 11 mmol/L (10-20); BUN (Urea Nitrogen) 6 mg/dL (8.9-20.6); Bilirubin, Total 6.6 mg/dL (0.2-1.2); Calc. Creatinine Clearance 206 mL/min (70-130); Carbon Dioxide 27 mmol/L (22-29); Chloride 97 mmol/L (98-107); Estimated GFR-MDRD Greater than 90; Globulin 4.1 g/dL (2.4-3.5); Glucose 136 mg/dL (70-105); Magnesium 1.9 mg/dL (1.6-2.6); Potassium 3.6 mmol/L (3.5-5.1); Protein, Total 6.8 g/dL (6.0-8.3); Sodium 131 mmol/L (136-145)
[2020-07-20 06:23] LABS: HBCM Index 0.07 S/CO (0-0.79); HBSAg Index 0.18 S/CO (0-0.99); Hep A IgM AB Non-Reactive (NonReactive); Hep A IgM S/CO 0.19 S/CO (0-0.79); Hep B Surf Ag Non-Reactive S/CO (NonReactive); Hep C IgG Ab Non-Reactive (NonReactive); Hep C Index 0.24 S/CO (0-0.79); Hepatitis B Core IgM Abs Non-Reactive (NonReactive)
[2020-07-20] MEDS: Tamsulosin HCl 0.4 MG CAP PO SCH (09:06)
[2020-07-20] MEDS: chlordiazePOXIDE HCl 25 MG CAP PO SCH ×3 (09:13→20:00)
[2020-07-20] MEDS: Gabapentin 100 MG CAP PO SCH ×3 (09:14→20:00)
[2020-07-20] MEDS: Thiamine 100 MG TAB PO SCH (09:14)
[2020-07-20] MEDS: Folic Acid 1 MG TAB PO SCH (09:14)
[2020-07-20] MEDS: Multivitamin W/ Minerals 1 TAB PO SCH (09:14)
[2020-07-20] MEDS: Finasteride 5 MG TAB PO SCH (09:15)
[2020-07-20] MEDS: Polyethylene Glycol 3350 17 GM Packet PO SCH (09:15)
[2020-07-20] MEDS: Ferrous Gluconate 324 MG TAB PO SCH (09:15)
[2020-07-20] MEDS ORDERED: Morphine 4 MG/ML VIAL SLOW IVP SCH (09:45)
[2020-07-20] MEDS: Propranolol 40 MG TAB PO SCH ×2 (10:48→22:38)
--- NOTE | 2020-07-20 14:19 | PQF ---
CLINICAL DOCUMENTATION CLARIFICATION FORM: Dear Dr. DR. RADHAMES VALENZUELA Date: 07-20-20 Please exercise your independent, professional judgment in responding to the clarification form. Clinical indicators are provided on the bottom of this form for your review. Please check appropriate box(es) to clarify if the following diagnosis has been ruled in our ruled out: SEPSIS [ ] Ruled in diagnosis [ ] Continue to treat [ ] Resolved [x ] Ruled out diagnosis [ ] Other diagnosis [ ] Unable to determine In addition, please specify: Present on Admission (POA): [ ] Yes [ ] No [ ] Unable to determine For continuity of documentation, please document condition throughout progress notes and discharge summary. Thank You. To be completed by CDI/Coding staff for physician review: CLINICAL INDICATORS - SIGNS / SYMPTOMS / LABS / RESULTS AND LOCATION IN MR: ER DX: SEVERE SEPSIS, ACUTE PANCREATITIS, CHOLEDOCHOLITHIASIS, SEPSIS WBC: 07-17-20: 11.7, 07-19-20: 11.5 LACTIC ACID: 07-16-20: 3.5, 2.7 CRP: 07-18-20: 17.66 TEMP: 07-19-20: 100.5 RISK FACTORS / RESULTS AND LOCATION IN MR H&P: MILD PANCREATITIS, ALCOHOL ABUSE WITH HX OF ALCOHOL WITHDRAWAL, LAST DRINK THIS MORNING ER DX: SEVERE SEPSIS, ACUTE PANCREATITIS, CHOLEDOCHOLITHIASIS, SEPSIS TREATMENTS / RESULTS AND LOCATION IN MR: ER NOTES 07-16-20: NS IVF, METRONIDAZOLE IV, CEFEPIME IV CDS Signature: Deborah Arevalo Phone #: [phone] Date: 07-20-20 This is a permanent part of the Medical Record [facility]
[2020-07-20] MEDS: Benzonatate 100 MG CAP PO SCH ×2 (16:23→20:00)
--- NOTE | 2020-07-20 16:44 | PDOC.HOSPP ---
- Subjective Subjective: pt reports he had couple BM overnight. still complaints of pain especially left side. - Objective Vital Signs & Weight: Vital Signs (12 hours) Temp Pulse Resp BP BP Pulse Ox 07/20/20 16:15 98.1 F 109 H 16 107/75 90 L 07/20/20 12:00 104/74 07/20/20 11:26 98.1 F 18 104/74 89 L 07/20/20 09:07 100 110/76 07/20/20 08:00 98.5 F 92 16 106/72 91 L 07/20/20 05:09 98.4 F 89 19 102/69 94 L Weight Weight 263 lb I&O: 07/19/20 07/20/20 07/21/20 06:59 06:59 06:59 Intake Total 2136 1732 Balance 2136 1732 Result Diagrams: 07/19/20 04:11 07/20/20 05:27 Hospitalist ROS - Medication Medications: Active Medications Generic Name Dose Route Start Last Admin Trade Name Freq PRN Reason Stop Dose Admin Hydrocodone Bitart/Acetaminophen 1 tab 07/16/20 16:33 07/20/20 13:11 [place] 5/325 PO 1 tab Q4H PRN Administration Moderate Pain (4-6) Benzonatate 100 mg 07/20/20 15:00 07/20/20 16:23 Tessalon PO 100 mg TID IDANIA Administration Chlordiazepoxide HCl 25 mg 07/16/20 21:00 07/20/20 16:22 Librium PO 25 mg TID IDANIA Administration Ferrous Gluconate 324 mg 07/20/20 09:00 07/20/20 09:15 Fergon PO 324 mg DAILY IDANIA Administration Finasteride 5 mg 07/20/20 09:00 07/20/20 09:15 Proscar PO 5 mg DAILY IDANIA Administration Folic Acid 1 mg 07/17/20 09:00 07/20/20 09:14 Folvite PO 1 mg DAILY IDANIA Administration Gabapentin 300 mg 07/19/20 15:00 07/20/20 16:22 Neurontin PO 300 mg TID IDANIA Administration Iron/Minerals/Multivitamins 1 tab 07/20/20 09:00 07/20/20 09:14 Theragran M PO 1 tab DAILY IDANIA Administration Pantoprazole Sodium 40 mg 07/19/20 21:00 07/20/20 09:14 Protonix PO 40 mg BID IDANIA Administration Polyethylene Glycol 17 gm 07/17/20 09:00 07/20/20 09:15 Miralax PO Not Given DAILY IDANIA Propranolol HCl 40 mg 07/19/20 21:00 07/20/20 10:48 Inderal PO Not Given BID IDANIA Sodium Chloride 10 ml 07/18/20 09:00 07/20/20 09:16 Flush - Normal Saline IVF 10 ml Q12HR IDANIA Administration Sodium Chloride 10 ml 07/18/20 07:39 07/18/20 08:45 Flush - Normal Saline IVF 10 ml PRN PRN Administration Saline Flush Tamsulosin HCl 0.4 mg 07/20/20 09:00 07/20/20 09:06 Flomax PO 0.4 mg DAILY IDANIA Administration Thiamine HCl 100 mg 07/17/20 09:00 07/20/20 09:14 Thiamine PO 100 mg DAILY IDANIA Administration Tramadol HCl 50 mg 07/19/20 09:08 07/19/20 15:27 Ultram PO 50 mg Q4H PRN Administration Muscle Spasm Hosp A/P - Plan PHYSICAL EXAM: General Appearance: Alert, oriented, resting comfortably, no apparent distress, well developed/nourished. HEENT: Normocephalic/atraumatic, moist mucous membrane, normal ENT inspection, normal tones. PERRLA, no scleral icterus, normal conjunctiva Neck: Supple, normal inspection, no JVD Respiratory: Lungs are clear bilaterally, normal breath sounds, no accessory muscle use Cardiovascular: Regular rate, regular rhythm, no murmur, no rubs Abdomen: distended, firm. diffuse tenderness. hypoactive bowel sound Back: Normal inspection, no CVA tenderness Extremities: No clubbing, no cyanosis, no edema Psych/Mental Status: Normal affect, speech, non-pressured, AAO x 3 Neurologic: AAO x 3; Cranial nerves II - XII intact. CN II-XII are intact. Skin: Warm/Dry, Normal Color, no rashes Assessment and plan: This is a pleasant 44 years old gentleman, who has significant past medical history of alcohol abuse, alcohol induced pancreatitis, depression/PTSD , GERD, presented to the ED with 2 weeks history of abdominal pain and progressively worsened this morning. #Abdominal pain-unclear etiology, possible pancreatitis versus acalculus cholecystitis. No evidence of obstructions on CT #Mild pancreatitis-alcohol induced #Dyspnea may be related to his abdominal distention, Echo wnl. CXR no evidence of pleural effusion #Elevated LFT secondary to above. Doubt cholangitis #Hyperbilirubinemia #Anemia, normocytic anemia #Alcohol abuse with history of alcohol withdrawal #Hepatic steatosis secondary to chronic alcohol abuse #GERD #BPH 07/20/20 His Tbili continue to rise. Afebrile. He still complaints of abd pain, but like to advance diet. Cont supportive cares, trend LFTs. Appreciate GI is following. 07/19/2020 Patient still complaining of left side abdominal pain, he is having regular bowel movement. Patient has been requesting for pain medications regularly. At the same time, patient also wanted to eat. He did not fit into the MRI machine for MRCP, nor there is a strong indication for it. His abnormal LFTs likely secondary to alcoholic hepatitis. Patient remains afebrile. No evidence of infection. At this time, will discontinue IV antibiotics. Restart him on clear liquid diet. Resume propranolol, continue Catapres patch for rate control and withdrawal symptoms. Continue scheduled Librium, multivitamin supplements including thiamine/folate, banana bag. His T bili appears to be stable. His DF score is 4, no indication for steroids. We will trend his LFTs , advance diet as tolerated. Patient can be transferred to medical floor. Appreciate GI input. DC IV Morphine. No evidence of ascites. D/C IVF, trial of Lasix x 1. Trend LFTs. 07/18/2020 Patient's still complaining of diffuse abdominal pain, pain medication helped but pain recurs after medication wear off. His T bili is rising, unclear whether or not this is related to his heavy alcohol use versus other etiologies. He is slightly anemic, but also on IV fluid hydration. Will check iron profile, LDH. We will send a fractionated T bili. His HIDA scan was unremarkable. We will check an MRCP to rule out possible small common bile duct stone although I doubt. Will keep him NPO, except ice chips. IVF hydration , supportive cares. Cont empiric IV abx. Appreciate GI inputs. Cont PPI empirically. 07/17/2020 Patient is still complaining of diffuse abdominal pain. His lipase is trending down slightly. His heart rate is improved with IV fluid hydration. His HIDA scan is scheduled to be done at 10 AM today per nursing staff. Appreciate input from GI. With regard to his dyspnea, will need to be mindful which is IV fluid hydration. We will give him a dose of IV Lasix x1. We will check his chest x-ray, BNP, and 2D echo to assess his LV function. I am concerned that he may have underlying cardiomyopathy given his long history of heavy alcohol use. Repeat labs in a.m. Awaiting for surgical input. Continue DT prophylaxis including scheduled Librium, banana bag/multivitamin/thiamine/ folate. Catapres patch was added. Patient is high risk for DTs. Patient was counseled with regards to alcohol cessation. 07/16/2020 Patient will be admitted to surgical floor for further evaluation. We will continue with empiric IV antibiotics with Levaquin and Flagyl. Aggressive IV fluid hydration. N.p.o. check HIDA scan to r/o acalculous cholecytitis or biliary dyskinesia Both GI and surgery were consulted in the ED, await for further recommendations Patient is high risk for alcohol withdrawal/DT. We will start him on scheduled Librium for DT prophylaxis, banana bag, thiamine/folate. Patient has been counseled with regard to alcohol cessation. SW consult PPI twice daily Follow BCx, AM labs DVT prophylaxis: SCD
--- NOTE | 2020-07-20 17:16 | PRG ---
DATE OF SERVICE: 07/20/2020 REASON FOR CONSULTATION: Alcoholic hepatitis, pancreatitis. SUBJECTIVE: Today, the patient states that he continues to have midepigastric abdominal pain and radiating into the left mid abdomen. He states that when compared to previous, it is relatively unchanged. He states that while he is not hungry, he expressed desire to consume solid food to "just have the taste of something solid in my mouth." Otherwise, he currently denies any nausea, vomiting, fevers, chills, hematemesis, melena, or hematochezia. However, he has been exhibiting some mild wheezing. OBJECTIVE: VITAL SIGNS: Temperature 98.1, pulse 109, blood pressure 107/75, respiratory rate 16, saturating 90% on room air. GENERAL: The patient was lying in bed, in mild distress. Alert and oriented x4. CARDIOVASCULAR: Tachycardic rate, but regular rhythm. RESPIRATORY: Clear to auscultation bilaterally, but with end-expiratory wheezing in all lung almanzar. ABDOMEN: Normoactive bowel sounds. Soft. [id number] distention with tenderness to palpation in the right upper quadrant, midepigastric, left upper quadrant, and periumbilical regions. EXTREMITIES: 1+/2+ bilateral lower extremity edema. LABORATORY DATA: CBC with a white blood cell count 11.5, hemoglobin 8.8, hematocrit 29.1, platelets 360. INR 1.2. Chemistry with a sodium 131, potassium 3.6, chloride 97, CO2 of 27, BUN 6, creatinine 0.78, glucose 136. AST 99, ALT 28, alkaline phosphatase 247, total bilirubin 6.6, calculated MELD score at 21. IMAGING DATA: No current GI imaging is available for review. ASSESSMENT: 1. Alcoholic hepatitis, resolving. 2. Mild uncomplicated pancreatitis. The patient is presenting with an elevated lipase greater than 3 times upper limit of normal consistent with a diagnosis of pancreatitis. However, CT scan on admission did not reflect this diagnosis with no peripancreatic inflammation or stranding. His physical exam is consistent with a diagnosis of pancreatitis and thus far has responded well to IV fluid administration and pain control management, although he does continue to have significant pain on physical examination today. Given his wheezing and lower extremity edema on physical examination today, the patient may be hypervolemic and may benefit from cessation of the IV fluids at least for right now or may benefit from one time dose of furosemide 40 mg x1. 3. Midepigastric abdominal pain/abnormal GI imaging. The patient is presenting with midepigastric abdominal pain with imaging showing no evidence of pancreatitis, but did show some evidence of possible cholecystitis. HIDA scan was obtained on July 17, 2020, which showed normal uptake of the radiotracer and normal ejection fraction making the diagnosis of cholecystitis less likely. The patient continues to have abdominal pain in that region, raising concern that this may be cholecystitis in combination with pancreatitis, but it is unclear at this time. RECOMMENDATIONS: 1. Given evidence of hypervolemia, I would consider giving one time dose of furosemide 40 mg x1. 2. Continue to monitor for signs of alcohol withdrawal. 3. Pain control per primary team, but would consider more frequent dosing of medications. 4. Would hold the patient on clear liquid diet today given his increased pain. 5. I would have a low threshold to repeat the CT scan of his abdomen and pelvis to show further progression of his pancreatitis and/or cholecystitis as the causative mechanism of continued abdominal pain. We will continue to follow. Please call with any questions. Job ID: [id number]
[2020-07-20] MEDS: traMADol HCl 50 MG TAB PO PRN (20:01)
[2020-07-21] MEDS: HYDROcodone/Acetaminophen 5/325 mg Tablet PO PRN ×3 (02:12→10:53)
[2020-07-21 05:50] LABS: #Eosinphils 0.1 thou/uL (0.0-0.7); #Lymphocytes 1.2 thou/uL (1.20-3.40); #Monocytes 1.6 thou/uL (0.11-0.59); #Neutrophils 13.7 thou/uL (1.40-6.50); %Basophils 0.1 % (0.0-1.0); %Eosinophils 0.5 % (0.0-10.0); %Lymphocytes 7.2 % (21.0-51.0); %Monocytes 9.4 % (0.0-10.0); %Neutrophils 82.8 % (42.0-75.0); Hemoglobin 9.1 g/dL (14.0-18.0); Mean Corpuscular HGB CONC 30.1 g/dL (32.0-36.0); Mean Corpuscular Hemoglobin 25.9 pg (27.0-31.0); Mean Corpuscular Volume 85.9 fL (78.0-98.0); Mean Platelet Volume 8.6 fL (7.4-10.4); Platelet Count 416 thou/uL (130-400); RBC Distribution Width 18.7 % (11.5-14.5); White Blood Cell (WBC) Count 16.6 thou/uL (4.8-10.8)
[2020-07-21 05:59] LABS: ALT (SGPT) 26 U/L (8-55); AST (SGOT) 100 U/L (5-34); Albumin 2.7 g/dL (3.5-5.0); Alkaline Phosphatase 277 U/L (40-110); Anion Gap 14 mmol/L (10-20); BUN (Urea Nitrogen) 9 mg/dL (8.9-20.6); Bilirubin, Total 6.7 mg/dL (0.2-1.2); Calc. Creatinine Clearance 203 mL/min (70-130); Calcium 8.1 mg/dL (7.8-10.44); Carbon Dioxide 27 mmol/L (22-29); Chloride 94 mmol/L (98-107); Estimated GFR-MDRD Greater than 90; Globulin 4.2 g/dL (2.4-3.5); Glucose 133 mg/dL (70-105); Potassium 3.6 mmol/L (3.5-5.1); Protein, Total 6.9 g/dL (6.0-8.3); Sodium 131 mmol/L (136-145)
[2020-07-21] MEDS: Multivitamin W/ Minerals 1 TAB PO SCH (09:00)
[2020-07-21] MEDS: Thiamine 100 MG TAB PO SCH (09:00)
[2020-07-21] MEDS: Tamsulosin HCl 0.4 MG CAP PO SCH (09:00)
[2020-07-21] MEDS: Folic Acid 1 MG TAB PO SCH (09:00)
[2020-07-21] MEDS: chlordiazePOXIDE HCl 25 MG CAP PO SCH ×3 (09:00→20:11)
[2020-07-21] MEDS: Gabapentin 100 MG CAP PO SCH ×3 (09:00→20:11)
[2020-07-21] MEDS: Finasteride 5 MG TAB PO SCH (09:01)
[2020-07-21] MEDS: Benzonatate 100 MG CAP PO SCH ×3 (09:01→20:11)
[2020-07-21] MEDS: Ferrous Gluconate 324 MG TAB PO SCH (09:01)
[2020-07-21] MEDS: Polyethylene Glycol 3350 17 GM Packet PO SCH (09:02)
[2020-07-21] MEDS: Propranolol 40 MG TAB PO SCH ×2 (09:02→20:12)
[2020-07-21] MEDS ORDERED: Iopamidol-370 76% 500 ML 1 ML ONE (14:29)
[2020-07-21] MEDS: traMADol HCl 50 MG TAB PO PRN ×2 (14:36→20:10)
--- NOTE | 2020-07-21 14:44 | PDOC.HOSPP ---
- Subjective Subjective: Patient was seen examined at bedside. No acute events overnight. Patient has been asking for pain medications on schedule. He had normal bowel movement. His white count went up slightly, but remained afebrile. Patient was started on empiric IV antibiotic with Levaquin and Flagyl on admission. However this was discontinued due to the fact that infection was ruled out. His gallbladder was unremarkable. Patient had a CT abdomen and pelvics as well as gallbladder ultrasound, his gallbladder was normal. No evidence of acute cholecystitis or gallstones. His HIDA scan was normal. Patient has been tolerating regular diet. However he still complaining of severe pain on his belly. GI is following. Patient also has had normal bowel movement. - Objective Vital Signs & Weight: Vital Signs (12 hours) Temp Pulse Resp BP BP BP Pulse Ox 07/21/20 12:00 105/66 07/21/20 09:01 93 L 07/21/20 08:00 105/66 07/21/20 07:39 99.4 F 113 H 22 H 109/73 93 L 07/21/20 06:10 112/64 07/21/20 03:58 98.5 F 105 H 18 97/64 90 L Weight Weight 263 lb I&O: 07/20/20 07/21/20 07/22/20 06:59 06:59 06:59 Intake Total 1732 1440 240 Balance 1732 1440 240 Result Diagrams: 07/21/20 05:10 07/21/20 05:11 Hospitalist ROS - Medication Medications: Active Medications Generic Name Dose Route Start Last Admin Trade Name Freq PRN Reason Stop Dose Admin Benzonatate 100 mg 07/20/20 15:00 07/21/20 14:37 Tessalon PO 100 mg TID IDANIA Administration Chlordiazepoxide HCl 25 mg 07/16/20 21:00 07/21/20 14:35 Librium PO 25 mg TID IDANIA Administration Ferrous Gluconate 324 mg 07/20/20 09:00 07/21/20 09:01 Fergon PO 324 mg DAILY IDANIA Administration Finasteride 5 mg 07/20/20 09:00 07/21/20 09:01 Proscar PO 5 mg DAILY IDANIA Administration Folic Acid 1 mg 07/17/20 09:00 07/21/20 09:00 Folvite PO 1 mg DAILY IDANIA Administration Gabapentin 300 mg 07/19/20 15:00 07/21/20 14:35 Neurontin PO 300 mg TID IDANIA Administration Iron/Minerals/Multivitamins 1 tab 07/20/20 09:00 07/21/20 09:00 Theragran M PO 1 tab DAILY IDANIA Administration Pantoprazole Sodium 40 mg 07/19/20 21:00 07/21/20 09:00 Protonix PO 40 mg BID IDANIA Administration Polyethylene Glycol 17 gm 07/17/20 09:00 07/21/20 09:02 Miralax PO Not Given DAILY IDANIA Propranolol HCl 40 mg 07/19/20 21:00 07/21/20 09:02 Inderal PO Not Given BID IDANIA Sodium Chloride 10 ml 07/18/20 09:00 07/21/20 09:02 Flush - Normal Saline IVF 10 ml Q12HR IDANIA Administration Sodium Chloride 10 ml 07/18/20 07:39 07/18/20 08:45 Flush - Normal Saline IVF 10 ml PRN PRN Administration Saline Flush Tamsulosin HCl 0.4 mg 07/20/20 09:00 07/21/20 09:00 Flomax PO 0.4 mg DAILY IDANIA Administration Thiamine HCl 100 mg 07/17/20 09:00 07/21/20 09:00 Thiamine PO 100 mg DAILY IDANIA Administration Tramadol HCl 50 mg 07/19/20 09:08 07/21/20 14:36 Ultram PO 50 mg Q4H PRN Administration Muscle Spasm Hosp A/P - Plan PHYSICAL EXAM: General Appearance: Alert, oriented, resting comfortably, no apparent distress, well developed/nourished. HEENT: Normocephalic/atraumatic, moist mucous membrane, normal ENT inspection, normal tones. PERRLA, no scleral icterus, normal conjunctiva Neck: Supple, normal inspection, no JVD Respiratory: Lungs are clear bilaterally, normal breath sounds, no accessory muscle use Cardiovascular: Regular rate, regular rhythm, no murmur, no rubs Abdomen: distended, firm. diffuse tenderness. hypoactive bowel sound Back: Normal inspection, no CVA tenderness Extremities: No clubbing, no cyanosis, no edema Psych/Mental Status: Normal affect, speech, non-pressured, AAO x 3 Neurologic: AAO x 3; Cranial nerves II - XII intact. CN II-XII are intact. Skin: Warm/Dry, Normal Color, no rashes Assessment and plan: This is a pleasant 44 years old gentleman, who has significant past medical history of alcohol abuse, alcohol induced pancreatitis, depression/PTSD , GERD, presented to the ED with 2 weeks history of abdominal pain and progressively worsened this morning. #Abdominal pain-unclear etiology, possible pancreatitis versus acalculus cholecystitis. No evidence of obstructions on CT #Mild pancreatitis-alcohol induced #Dyspnea may be related to his abdominal distention, Echo wnl. CXR no evidence of pleural effusion #Elevated LFT secondary to acute alcoholic hepatitis. Doubt cholangitis #Hyperbilirubinemia d/t alcoholic acute hepatitis. #Anemia, normocytic anemia #Alcohol abuse with history of alcohol withdrawal #Hepatic steatosis secondary to chronic alcohol abuse #GERD #BPH 07/21/2020 Patient's still complaining of persisting pain. However he is tolerating regular diet. He also had normal bowel movement. His total bilirubin does appear to be level off. His white count went up overnight, but remains afebrile. He was on antibiotic initially but it was discontinued as infection was ruled out. GI is following. We will continue with supportive care, repeat labs in a.m. Will consider repeat imaging study over the weekend if he continues to have abdominal pain. 07/20/20 His Tbili continue to rise. Afebrile. He still complaints of abd pain, but like to advance diet. Cont supportive cares, trend LFTs. Appreciate GI is following. 07/19/2020 Patient still complaining of left side abdominal pain, he is having regular bowel movement. Patient has been requesting for pain medications regularly. At the same time, patient also wanted to eat. He did not fit into the MRI machine for MRCP, nor there is a strong indication for it. His abnormal LFTs likely secondary to alcoholic hepatitis. Patient remains afebrile. No evidence of infection. At this time, will discontinue IV antibiotics. Restart him on clear liquid diet. Resume propranolol, continue Catapres patch for rate control and withdrawal symptoms. Continue scheduled Librium, multivitamin supplements including thiamine/folate, banana bag. His T bili appears to be stable. His DF score is 4, no indication for steroids. We will trend his LFTs , advance diet as tolerated. Patient can be transferred to medical floor. Appreciate GI input. DC IV Morphine. No evidence of ascites. D/C IVF, trial of Lasix x 1. Trend LFTs. 07/18/2020 Patient's still complaining of diffuse abdominal pain, pain medication helped but pain recurs after medication wear off. His T bili is rising, unclear whether or not this is related to his heavy alcohol use versus other etiologies. He is slightly anemic, but also on IV fluid hydration. Will check iron profile, LDH. We will send a fractionated T bili. His HIDA scan was unremarkable. We will check an MRCP to rule out possible small common bile duct stone although I doubt. Will keep him NPO, except ice chips. IVF hydration , supportive cares. Cont empiric IV abx. Appreciate GI inputs. Cont PPI empirically. 07/17/2020 Patient is still complaining of diffuse abdominal pain. His lipase is trending down slightly. His heart rate is improved with IV fluid hydration. His HIDA scan is scheduled to be done at 10 AM today per nursing staff. Appreciate input from GI. With regard to his dyspnea, will need to be mindful which is IV fluid hydration. We will give him a dose of IV Lasix x1. We will check his chest x-ray, BNP, and 2D echo to assess his LV function. I am concerned that he may have underlying cardiomyopathy given his long history of heavy alcohol use. Repeat labs in a.m. Awaiting for surgical input. Continue DT prophylaxis including scheduled Librium, banana bag/multivitamin/thiamine/ folate. Catapres patch was added. Patient is high risk for DTs. Patient was counseled with regards to alcohol cessation. 07/16/2020 Patient will be admitted to surgical floor for further evaluation. We will continue with empiric IV antibiotics with Levaquin and Flagyl. Aggressive IV fluid hydration. N.p.o. check HIDA scan to r/o acalculous cholecytitis or biliary dyskinesia Both GI and surgery were consulted in the ED, await for further recommendations Patient is high risk for alcohol withdrawal/DT. We will start him on scheduled Librium for DT prophylaxis, banana bag, thiamine/folate. Patient has been counseled with regard to alcohol cessation. SW consult PPI twice daily Follow BCx, AM labs DVT prophylaxis: SCD
[2020-07-21] MEDS ORDERED: Mag-Al 1200 mg/1200 mg/30 ML UDCUP PO PRN (15:33)
[2020-07-21] MEDS ORDERED: Simethicone Chewable 80 MG TAB PO PRN (15:33)
[2020-07-21] MEDS: HYDROcodone/Acetaminophen 10/325 mg Tablet PO PRN (17:00)
--- NOTE | 2020-07-21 20:51 | PRG ---
DATE OF SERVICE: 07/21/2020 REASON FOR CONSULTATION: Alcoholic hepatitis, pancreatitis. SUBJECTIVE: Today, the patient continues to have significant midepigastric and right upper quadrant abdominal pain that seems to be the same or worsening when compared to yesterday. He also does continue to have significant abdominal distention that almost seems to be becoming tense to palpation. Currently, his pain is relatively controlled with the administration of IV narcotics. Otherwise, he currently denies any nausea, vomiting, fevers, chills, hematemesis, melena, or hematochezia. OBJECTIVE: VITAL SIGNS: Temperature 99.5, pulse 112, blood pressure 155/93, respiratory rate , saturating 95% on 2 L nasal cannula. GENERAL: The patient was lying in bed, in mild distress. Alert and oriented x4. CARDIOVASCULAR: Tachycardic rate, but regular rhythm. RESPIRATORY: Clear to auscultation bilaterally. ABDOMEN: Normoactive bowel sounds. Soft. [id number] distention with tenderness to palpation in the right upper quadrant, midepigastric, and left upper quadrants. EXTREMITIES: 1+/2+ bilateral lower extremity edema. LABORATORY DATA: CBC with a white blood cell count of 16.6, hemoglobin 9.1, hematocrit 30, platelets 416. Chemistry with a sodium 131, potassium 3.6, chloride 94, CO2 of 27, BUN 9, creatinine 0.79, glucose 133, AST 100, ALT 26, alkaline phosphatase 277, total bilirubin 6.7. IMAGING DATA: No current GI imaging is available for review. ASSESSMENT: 1. Mild uncomplicated pancreatitis. The patient initially presented with a diagnosis of a pancreatitis based on his serum lipase being 3 times upper limit of normal despite the fact that the CT scan did not reflect any peripancreatic fluid or stranding. Currently, with worsening midepigastric abdominal pain, which could be due to his pancreatitis worsening/progressing pancreatitis. 2. Right upper quadrant abdominal pain/abnormal GI imaging. The patient is also presenting with imaging showing evidence of possible cholecystitis, although the patient did have a HIDA scan obtained on July 17, which did show normal findings. Given the continuation of his pain despite more conservative management, cholecystitis is still within the differential to be producing or worsening his abdominal pain. 3. Alcoholic hepatitis, stable. RECOMMENDATIONS: 1. Continue to monitor the patient for signs of alcohol withdrawal. 2. Would repeat the CT scan of the abdomen and pelvis today for further evaluation of his pancreas for possible fluid collections or necrosis, but would also evaluate for possible biliary pathology including cholecystitis that may be contributing to his continued abdominal pain. 3. Pain control per primary team. We will continue to follow. Please call with any questions. Job ID: [id number]
--- NOTE | 2020-07-21 21:01 | CT ---
CT ABDOMEN AND PELVIS WITH ORAL AND IV CONTRAST: 07/21/20 HISTORY: Generalized abdominal pain. Elevated WBCs. Possible pancreatitis. Patient has had appendectomy and he rnia repair in the past. COMPARISON: 07/16/20. There has been interval development of a tiny left and small right pleural effusion. There are adjace nt atelectatic changes. No free air is seen in the abdomen or pelvis. There is a tiny amount of free fluid in the pelvis and lower abdomen, slightly more than that noted on the previous study. No calcified gallstones are noted. Hepatic steatosis is again seen with stable hepatomegaly. The sple en, pancreas, adrenal glands and kidneys are normal. No peripancreatic inflammatory changes or fluid collections are noted. No lymphadenopathy is seen. The small bowel loops are not abnormally dilated. Tiny fat containing umbilical hernia is again noted . Left sided pars defect at L5 is again noted. There is no evidence of aneurysmal dilatation of the a bdominal aorta. Probable calculi in the urinary bladder again seen. IMPRESSION: Interval development of small pleural effusions and mild increase amount of free fluid in the lower a bdomen and pelvis since 07/16/20. POS: OFF
[2020-07-22] MEDS: HYDROcodone/Acetaminophen 10/325 mg Tablet PO PRN ×3 (00:06→18:36)
[2020-07-22] MEDS ORDERED: Morphine 2 MG/ML VIAL SLOW IVP SCH (00:30)
[2020-07-22 04:52] LABS: Lactic Acid 0.8 mmol/L (0.5-2.2)
[2020-07-22 04:58] LABS: ALT (SGPT) 27 U/L (8-55); AST (SGOT) 107 U/L (5-34); Albumin 2.7 g/dL (3.5-5.0); Alkaline Phosphatase 303 U/L (40-110); Anion Gap 14 mmol/L (10-20); BUN (Urea Nitrogen) 9 mg/dL (8.9-20.6); Calc. Creatinine Clearance 214 mL/min (70-130); Calcium 8.2 mg/dL (7.8-10.44); Carbon Dioxide 26 mmol/L (22-29); Chloride 95 mmol/L (98-107); Estimated GFR-MDRD Greater than 90; Glucose 131 mg/dL (70-105); Hemoglobin 8.9 g/dL (14.0-18.0); Lipase 59 U/L (8-78); Magnesium 2.1 mg/dL (1.6-2.6); Mean Corpuscular HGB CONC 30.9 g/dL (32.0-36.0); Mean Corpuscular Hemoglobin 26.5 pg (27.0-31.0); Mean Corpuscular Volume 85.7 fL (78.0-98.0); Mean Platelet Volume 8.4 fL (7.4-10.4); Platelet Count 438 thou/uL (130-400); Potassium 3.7 mmol/L (3.5-5.1); Protein, Total 6.7 g/dL (6.0-8.3); RBC Distribution Width 19.3 % (11.5-14.5); Red Blood Cell (RBC) Count 3.37 mill/uL (4.70-6.10); Sodium 131 mmol/L (136-145)
[2020-07-22 04:59] LABS: Band 8 % (5-11); Lymphocytes 7 % (21-51); MDiff Complete? YES; Metamyelocyte 3 % (0-0); Monocytes 7 % (0-10); Neutrophil 75 % (42-75); Platelet Morphology Comment Appears Increased; Polychromasia SLIGHT = 2-3 cells (100X) (0-2/hpf); Target Cells SLIGHT = 2-5 cells (100X) (0-1/hpf)
[2020-07-22] MEDS: Folic Acid 1 MG TAB PO SCH (08:30)
[2020-07-22] MEDS: Thiamine 100 MG TAB PO SCH (08:31)
[2020-07-22] MEDS: Multivitamin W/ Minerals 1 TAB PO SCH (08:31)
[2020-07-22] MEDS: Tamsulosin HCl 0.4 MG CAP PO SCH (08:31)
[2020-07-22] MEDS: Finasteride 5 MG TAB PO SCH (08:31)
[2020-07-22] MEDS: Gabapentin 100 MG CAP PO SCH ×3 (08:33→20:28)
[2020-07-22] MEDS: Ferrous Gluconate 324 MG TAB PO SCH (08:33)
[2020-07-22] MEDS: chlordiazePOXIDE HCl 25 MG CAP PO SCH (08:37)
[2020-07-22] MEDS: Polyethylene Glycol 3350 17 GM Packet PO SCH (08:37)
[2020-07-22] MEDS: Benzonatate 100 MG CAP PO SCH ×3 (08:37→20:28)
[2020-07-22] MEDS: Propranolol 40 MG TAB PO SCH (08:38)
[2020-07-22] MEDS: traMADol HCl 50 MG TAB PO PRN ×2 (12:06→22:00)
--- NOTE | 2020-07-22 12:44 | PDOC.HOSPP ---
- Subjective Encounter Date: 07/22/20 Encounter Time: 12:30 Subjective: Patient is quite distended in his abdomen. He is also tender for palpation. If he did not had any bowel movement. He did not take his today's MiraLAX. Repeat CT of the abdomen showed a normal pancreas small pleural effusion and increased amount of free fluid in the lower abdomen. - Objective Vital Signs & Weight: Vital Signs (12 hours) Temp Pulse Resp BP BP BP Pulse Ox 07/22/20 12:00 98.1 F 102 H 20 99/63 99/63 95 07/22/20 08:30 98.4 F 95 20 100/66 93 L 07/22/20 08:00 100/66 93 L 07/22/20 07:56 98.4 F 91 18 97/64 92 L 07/22/20 04:16 98.1 F 98 20 125/91 H 95 07/22/20 02:55 118/77 Weight Weight 263 lb 0.007 oz I&O: 07/21/20 07/22/20 07/23/20 06:59 06:59 06:59 Intake Total 1440 2070 Balance 1440 2070 Result Diagrams: 07/22/20 04:21 07/22/20 04:21 Hospitalist ROS - Medication Medications: Active Medications Generic Name Dose Route Start Last Admin Trade Name Shakeelq PRN Reason Stop Dose Admin Hydrocodone Bitart/Acetaminophen 1 tab 07/21/20 11:31 07/22/20 08:38 [place] 10/325 PO 1 tab Q4H PRN Administration Pain Benzonatate 100 mg 07/20/20 15:00 07/22/20 08:37 Tessalon PO 100 mg TID IDANIA Administration Chlordiazepoxide HCl 25 mg 07/16/20 21:00 07/22/20 08:37 Librium PO 25 mg TID IDANIA Administration Ferrous Gluconate 324 mg 07/20/20 09:00 07/22/20 08:33 Fergon PO 324 mg DAILY IDANIA Administration Finasteride 5 mg 07/20/20 09:00 07/22/20 08:31 Proscar PO 5 mg DAILY IDANIA Administration Folic Acid 1 mg 07/17/20 09:00 07/22/20 08:30 Folvite PO 1 mg DAILY IDANIA Administration Gabapentin 300 mg 07/19/20 15:00 08/22/20 08:33 Neurontin PO 300 mg TID IDANIA Administration Iron/Minerals/Multivitamins 1 tab 07/20/20 09:00 07/22/20 08:31 Theragran M PO 1 tab DAILY IDANIA Administration Pantoprazole Sodium 40 mg 07/19/20 21:00 07/22/20 08:31 Protonix PO 40 mg BID IDANIA Administration Polyethylene Glycol 17 gm 07/17/20 09:00 07/22/20 08:37 Miralax PO Not Given DAILY IDANIA Propranolol HCl 40 mg 07/19/20 21:00 07/22/20 08:38 Inderal PO Not Given BID IDANIA Simethicone 80 mg 07/21/20 15:33 07/21/20 17:27 Mylicon Chewable PO 80 mg PCHS PRN Administration Gas Pain Sodium Chloride 10 ml 07/18/20 09:00 07/22/20 10:05 Flush - Normal Saline IVF Not Given Q12HR IDANIA Sodium Chloride 10 ml 07/18/20 07:39 07/18/20 08:45 Flush - Normal Saline IVF 10 ml PRN PRN Administration Saline Flush Tamsulosin HCl 0.4 mg 07/20/20 09:00 07/22/20 08:31 Flomax PO 0.4 mg DAILY IDANIA Administration Thiamine HCl 100 mg 07/17/20 09:00 07/22/20 08:31 Thiamine PO 100 mg DAILY IDANIA Administration Tramadol HCl 50 mg 07/19/20 09:08 07/22/20 12:06 Ultram PO 50 mg Q4H PRN Administration Muscle Spasm - Exam General Appearance: NAD, awake alert Eye: PERRL ENT: normocephalic atraumatic Neck: supple Respiratory: CTAB Gastrointestinal: soft, normal bowel sounds Neurological: no focal deficits Psychiatric: A&O x 3 Hosp A/P - Plan 44 years old gentleman, who has significant past medical history of alcohol abuse, alcohol induced pancreatitis, depression/PTSD, GERD, presented to the ED with 2 weeks history of abdominal pain and progressively worsened this morning. #Abdominal pain-unclear etiology, possible pancreatitis versus acalculus cholecystitis. No evidence of obstructions on CT #Mild pancreatitis-alcohol induced #Dyspnea may be related to his abdominal distention, Echo wnl. CXR no evidence of pleural effusion #Elevated LFT secondary to acute alcoholic hepatitis. Doubt cholangitis #Hyperbilirubinemia d/t alcoholic acute hepatitis. #Anemia, normocytic anemia #Alcohol abuse with history of alcohol withdrawal #Hepatic steatosis secondary to chronic alcohol abuse #GERD #BPH 22nd Possible cholestasis Alcoholic hepatitis -His abdomen is quite distended and tender to palpation. -There is a mild increase in his abdominal fluid/ascites -Patient has no previous history of paracentesis. -Repeat lipase only 59 --Start him on low-dose Lasix as follows Spironolactone if blood pressure allows. -Patient on propanolol will add holding parameters. Blood pressure on the lower side expected given his alcoholic hepatitis Decrease the sedative dose Librium being long-acting -switch to short-acting and a low-dose sedative and Ativan as needed Given the elevated alkaline phosphatase level around 300 representing cholestasis picture., Also his AST is 3 times higher than ALT consistent with alcoholic transaminitis Coagulopathy secondary to ongoing alcohol abuse Will provide him clear liquid diet as he does have ongoing abdominal pain even the lipase is negative. We will follow-up with a diagnostic paracentesis. -We will follow-up with the GI recommendations. Discussed with Dr. Linda today we will get the paracentesis
[2020-07-22] MEDS ORDERED: Lorazepam 2 MG/ML VIAL SLOW IVP PRN (12:56)
[2020-07-22] MEDS ORDERED: Furosemide 20 MG TAB PO SCH ×2 (13:00→14:00)
[2020-07-22] MEDS: Furosemide 20 MG TAB PO SCH (13:11)
--- NOTE | 2020-07-22 19:19 | PRG ---
DATE OF SERVICE: 07/22/2020 REASON FOR CONSULTATION: Alcoholic hepatitis, pancreatitis, abdominal pain. SUBJECTIVE: Today, the patient states that his abdominal pain remains relatively unchanged and continues to have a significant amount of abdominal distention associated with that abdominal pain. He is currently receiving both hydrocodone and tramadol as part of pain measures related to this abdominal pain with a fair degree of control of pain at this time. CT scan was performed yesterday with results discussed below, but with a small amount of free fluid seen. The patient currently denies any nausea, vomiting, fevers, chills, hematemesis, melena, or hematochezia. OBJECTIVE: VITAL SIGNS: Temperature 99, pulse 101, blood pressure 111/79, respiratory rate 22, saturating 93% on 2 L nasal cannula. GENERAL: The patient was lying in bed, in mild distress. Alert and oriented x4. CARDIOVASCULAR: Tachycardic rate, but regular rhythm. RESPIRATORY: Clear to auscultation bilaterally, but with tachypneic rate. ABDOMEN: Hypoactive bowel sounds in the upper abdominal quadrants. Normoactive bowel sounds in the lower abdominal quadrants. [id number] abdominal distention with tenderness to palpation in all abdominal quadrants. Mildly tense to palpation. EXTREMITIES: 1+ bilateral lower extremity edema. LABORATORY DATA: CBC with a white blood cell count of 13, hemoglobin 8.9, hematocrit 28.9, platelets 438. Chemistry with a sodium of 131, potassium 3.7, chloride 95, CO2 of 26, BUN 9, creatinine 0.75, glucose 131, AST 107, ALT 27, alkaline phosphatase 303, total bilirubin 7.0. IMAGING DATA: CT of the abdomen and pelvis was obtained on July 21, 2020, which showed interval development of a tiny left and small right pleural effusion with adjacent atelectatic changes. There was a tiny amount of free fluid in the pelvis and lower abdomen that was slightly more than noted on previous study, but no evidence of free air seen in the abdomen either. The small bowel loops were not abnormally dilated, and the spleen, pancreas, adrenal glands, and kidneys were all normal in appearance. The peripancreatic inflammatory changes were not seen during this examination. No lymphadenopathy was seen either. ASSESSMENT: 1. Mild uncomplicated pancreatitis, resolving. CT scan and serologies are not reflective of pancreatitis at this time with either necrosis or abscess formation. This does not seem to be a clear etiology for his worsening abdominal pain. 2. Right upper quadrant/midepigastric abdominal pain. The patient initially presented with imaging showing possible cholecystitis, although HIDA scan on July 17 showed normal findings, and repeat CT scan on July 21, 2020, did not show any evidence of cholecystitis either. However, the patient continues to have increasing pain medication demands and on physical exam today has hypoactive bowel sounds indicative more of an ileus. At this time, I wonder if this is a medication-induced ileus with significant narcotic administration for initial treatment of pancreatitis, but has now generated an ileus type picture resulting in significant abdominal distention and abdominal pain. 3. Alcoholic type hepatitis, stable. RECOMMENDATIONS: 1. Continue to monitor the patient for signs of alcohol withdrawal, although he is nearly outside the window for this condition. 2. We would place the patient on MiraLAX 1 to 2 times daily as part of a bowel regimen, especially since the patient has not had a bowel movement for the last 24 hours. 3. Pain control per primary team, but would attempt to minimize narcotic administration as it may be generating decreased GI motility and a functional ileus. 4. I would add naloxegol 25 mg daily to reverse the effects of the opiates in case the medication induced ileus is at the root of the problem. 5. We would refrain from use of lactulose as it can be very gas-forming and create increased abdominal distention and resultant pain. 6. Paracentesis is unlikely to be helpful given the degree of fluid present in the abdomen and low likelihood of SBP. 7. If the patient is not responding to more conservative management, I would then recommend placement of an NG tube for possible decompression of the upper GI tract in light of possible medication induced ileus. Job ID: [id number]
[2020-07-22] MEDS: Diazepam 5 MG TAB PO SCH (20:28)
[2020-07-23] MEDS: HYDROcodone/Acetaminophen 10/325 mg Tablet PO PRN ×2 (03:07→14:18)
[2020-07-23] MEDS: traMADol HCl 50 MG TAB PO PRN ×3 (05:51→20:29)
[2020-07-23] MEDS: Polyethylene Glycol 3350 17 GM Packet PO SCH (09:39)
[2020-07-23] MEDS: Thiamine 100 MG TAB PO SCH (09:40)
[2020-07-23] MEDS: Tamsulosin HCl 0.4 MG CAP PO SCH (09:40)
[2020-07-23] MEDS: Diazepam 5 MG TAB PO SCH ×2 (09:40→20:30)
[2020-07-23] MEDS: Finasteride 5 MG TAB PO SCH (09:40)
[2020-07-23] MEDS: Gabapentin 100 MG CAP PO SCH ×3 (09:40→20:29)
[2020-07-23] MEDS: Furosemide 20 MG TAB PO SCH ×2 (09:41→14:19)
[2020-07-23] MEDS: Folic Acid 1 MG TAB PO SCH (09:41)
[2020-07-23] MEDS: Spironolactone 25 MG TAB PO SCH (09:41)
[2020-07-23] MEDS: Multivitamin W/ Minerals 1 TAB PO SCH (09:42)
[2020-07-23] MEDS: Benzonatate 100 MG CAP PO SCH ×3 (09:42→20:30)
[2020-07-23] MEDS: Propranolol 10 MG TAB PO SCH (09:49)
--- NOTE | 2020-07-23 13:16 | PDOC.HOSPP ---
- Subjective Encounter Date: 07/23/20 Encounter Time: 11:15 Subjective: he is more awake and alert and looks better than yesterday. He did had a bowel movement today. He is tachycardic his blood pressure is usually on the low normal. His WBC is trending down. Due to lack of enough fluid in the abdominal area no diagnostic paracentesis. He looks icteric. AFP is 2.2 alpha antitrypsin level pending - Objective Vital Signs & Weight: Vital Signs (12 hours) Temp Pulse Resp BP BP BP Pulse Ox 07/23/20 11:58 98.2 F 102 H 15 102/68 89 L 07/23/20 08:00 106/74 91 L 07/23/20 07:06 98.9 F 103 H 17 106/74 91 L 07/23/20 03:16 114/70 07/23/20 03:10 98 F 105 H 22 H 94 L Weight Weight 263 lb 0.007 oz I&O: 07/22/20 07/23/20 07/24/20 06:59 06:59 06:59 Intake Total 2069 1999 Balance 2069 1999 Result Diagrams: 07/22/20 04:21 07/22/20 04:21 Hospitalist ROS - Medication Medications: Active Medications Generic Name Dose Route Start Last Admin Trade Name Freq PRN Reason Stop Dose Admin Hydrocodone Bitart/Acetaminophen 1 tab 07/21/20 11:31 07/23/20 03:07 [place] 10/325 PO 1 tab Q4H PRN Administration Pain Benzonatate 100 mg 07/20/20 15:00 07/23/20 09:42 Tessalon PO 100 mg TID IDANIA Administration Diazepam 5 mg 07/22/20 21:00 07/23/20 09:40 Valium PO 5 mg BID IDANIA Administration Finasteride 5 mg 07/20/20 09:00 07/23/20 09:40 Proscar PO 5 mg DAILY IDANIA Administration Folic Acid 1 mg 07/17/20 09:00 07/23/20 09:41 Folvite PO 1 mg DAILY IDANIA Administration Furosemide 20 mg 07/22/20 14:00 07/23/20 09:41 Lasix PO 20 mg 0900,1400 IDANIA Administration Gabapentin 300 mg 07/19/20 15:00 07/23/20 09:40 Neurontin PO 300 mg TID IDANIA Administration Iron/Minerals/Multivitamins 1 tab 07/20/20 09:00 07/23/20 09:42 Theragran M PO 1 tab DAILY IDANIA Administration Pantoprazole Sodium 40 mg 07/19/20 21:00 07/23/20 09:40 Protonix PO 40 mg BID IDANIA Administration Polyethylene Glycol 17 gm 07/17/20 09:00 07/23/20 09:39 Miralax PO Not Given DAILY IDANIA Propranolol HCl 10 mg 07/23/20 09:00 07/23/20 09:49 Inderal PO Not Given DAILY IDANIA Simethicone 80 mg 07/21/20 15:33 07/21/20 17:27 Mylicon Chewable PO 80 mg PCHS PRN Administration Gas Pain Sodium Chloride 10 ml 07/18/20 09:00 07/23/20 09:49 Flush - Normal Saline IVF Not Given Q12HR IDANIA Sodium Chloride 10 ml 07/18/20 07:39 07/18/20 08:45 Flush - Normal Saline IVF 10 ml PRN PRN Administration Saline Flush Spironolactone 12.5 mg 07/23/20 08:00 07/23/20 09:41 Aldactone PO 12.5 mg QAM-WM IDANIA Administration Tamsulosin HCl 0.4 mg 07/20/20 09:00 07/23/20 09:40 Flomax PO 0.4 mg DAILY IDANIA Administration Thiamine HCl 100 mg 07/17/20 09:00 07/23/20 09:40 Thiamine PO 100 mg DAILY IDANIA Administration Tramadol HCl 50 mg 07/19/20 09:08 07/23/20 10:55 Ultram PO 50 mg Q4H PRN Administration Muscle Spasm - Exam General Appearance: awake alert Eye: PERRL, scleral icterus ENT: normocephalic atraumatic Neck: supple Heart: RRR Respiratory: CTAB, normal chest expansion Gastrointestinal: soft, distended Neurological: cranial nerve grossly intact, no focal deficits Psychiatric: A&O x 3 Hosp A/P - Plan 44 years old gentleman, who has significant past medical history of alcohol abuse, alcohol induced pancreatitis, depression/PTSD, GERD, presented to the ED with 2 weeks history of abdominal pain and progressively worsened this morning. #Abdominal pain-unclear etiology, possible pancreatitis versus acalculus cholecystitis. No evidence of obstructions on CT #Mild pancreatitis-alcohol induced #Dyspnea may be related to his abdominal distention, Echo wnl. CXR no evidence of pleural effusion #Elevated LFT secondary to acute alcoholic hepatitis. Doubt cholangitis #Hyperbilirubinemia d/t alcoholic acute hepatitis. #Anemia, normocytic anemia #Alcohol abuse with history of alcohol withdrawal #Hepatic steatosis secondary to chronic alcohol abuse #GERD #BPH 22nd Possible cholestasis Alcoholic hepatitis -His abdomen is quite distended and tender to palpation. -There is a mild increase in his abdominal fluid/ascites -Patient has no previous history of paracentesis. -Repeat lipase only 59 --Start him on low-dose Lasix as follows Spironolactone if blood pressure allows. -Patient on propanolol will add holding parameters. Blood pressure on the lower side expected given his alcoholic hepatitis Decrease the sedative dose Librium being long-acting -switch to short-acting and a low-dose sedative and Ativan as needed Given the elevated alkaline phosphatase level around 300 representing cholestasis picture., Also his AST is 3 times higher than ALT consistent with alcoholic transaminitis Coagulopathy secondary to ongoing alcohol abuse Will provide him clear liquid diet as he does have ongoing abdominal pain even the lipase is negative. We will follow-up with a diagnostic paracentesis. -We will follow-up with the GI recommendations. Discussed with Dr. Linda today we will get the paracentesis Due to lack of enough fluid in the abdominal area, no diagnostic paracentesis. Hyperbilirubinemia Alcoholic hepatitis AFP is 2.2 alpha -antitrypsin level pending Follow the clinical progression. Abdomen is still distended. Started him on naloxegal for opioid induced ileus/ constipation. - he does have a significant history of alcohol induced withdrawal/seizure in the past. -He is on low-dose Valium which we will jin off
[2020-07-23 15:41] LABS: ANA Symphony (Qualitative) Negative (Negative); ANA Symphony (Quantitative) 0.2 Ratio (< 0.7 Negative); dsDNA IgG Antibody 0.7 IU/mL (<10 Negative)
--- NOTE | 2020-07-23 17:34 | PRG ---
DATE OF SERVICE: 07/23/2020 REASON FOR CONSULTATION: Alcoholic hepatitis, pancreatitis, abdominal pain. SUBJECTIVE: The patient is still receiving [id number] narcotics with the use of both tramadol and hydrocodone, and while on this regimen, states that his pain is currently 7/10 to 8/10, but does allow him sometimes to sleep. He also adds that he did have a bowel movement this morning that was firm but easily passed with no increased straining in order to facilitate defecation. He was also started on naloxegol this morning but has received only 1 dose thus far. He adds that his abdominal pain continues and that if he misses any of his pain medications he continues to have fairly severe pain. However, currently, he denies any nausea, vomiting, fevers, chills, hematemesis, melena, or hematochezia, but if he does take a deep breath, it does significantly increase his right upper quadrant abdominal pain. OBJECTIVE: VITAL SIGNS: Temperature 98.6, pulse 108, blood pressure 107/73, respiratory rate 16, saturating 87% on 2 L nasal cannula. GENERAL: The patient was lying in bed, in mild distress. Alert and oriented x4. CARDIOVASCULAR: Tachycardic rate but regular rhythm. RESPIRATORY: Clear to auscultation bilaterally, but with tachypneic rate. ABDOMEN: Hypoactive bowel sounds in the upper abdominal quadrants, moderate to severe abdominal distention with tenderness to palpation in all abdominal quadrants, especially the midepigastric and right upper quadrant region. Mildly tense to palpation. EXTREMITIES: 1+ bilateral lower extremity edema extending about mid jane. LABORATORY DATA: No current studies are available for review. IMAGING DATA: No current studies are available for review. ASSESSMENT: 1. Mild uncomplicated pancreatitis, resolving. CT scan and serologies are not reflective of significant pancreatitis at this time with the most recent imaging showing no evidence of necrosis or abscess formation that could be contributing to his abdominal pain. His pancreatitis does not seem to be a clear etiology for his worsening abdominal pain. 2. Right upper quadrant/midepigastric abdominal pain. The patient initially presented to the hospital with complaints of epigastric/right upper quadrant abdominal pain with initial imaging showing the possibility of cholecystitis, although a HIDA scan and CT scan obtained during this admission did not confirm this diagnosis. At this time, the patient is requiring a significant amount of narcotic medications for pain relief, and while he states that he has been having bowel movements, it is unclear if this is the truly the case (the patient's nursing staff have not remarked on any bowel movements). At this time, this seems to be more medication-induced ileus secondary to narcotic administration for the initial treatment of pancreatitis but has now generated an ileus-type picture resulting in significant abdominal distention and abdominal pain. I conferred with Dr. Jeff Weathers about his case in terms of surgical intervention for cholecystitis, and based on the current imaging and labs, he feels that this is not indicated at this time. 3. Alcoholic type hepatitis, stable. RECOMMENDATIONS: 1. Continue CIWA/ protocol for alcohol withdrawal. 2. Continue patient on MiraLAX 1-2 times daily as part of bowel regimen. 3. Continue naloxegol 25 mg daily. 4. Pain control per primary team, but I would recommend attempting to minimize narcotic administration and would use alternate forms of pain relief. 5. If the patient continues to have abdominal pain and is not having any bowel movements. I would consider placement of an NG tube for decompression of the upper GI tract and/or consultation of General Surgery for further evaluation. We will continue to follow. Please call with any questions. Job ID: [id number]
[2020-07-23 19:37] LABS: Smooth Muscle Total ABS 7 Units (0-19)
[2020-07-24] MEDS: HYDROcodone/Acetaminophen 10/325 mg Tablet PO PRN ×2 (02:36→15:06)
[2020-07-24 05:51] LABS: Anion Gap 16 mmol/L (10-20); BUN (Urea Nitrogen) 6 mg/dL (8.9-20.6); Calc. Creatinine Clearance 236 mL/min (70-130); Calcium 8.3 mg/dL (7.8-10.44); Carbon Dioxide 27 mmol/L (22-29); Chloride 95 mmol/L (98-107); Estimated GFR-MDRD Greater than 90; Glucose 124 mg/dL (70-105); Potassium 3.5 mmol/L (3.5-5.1); Sodium 134 mmol/L (136-145)
[2020-07-24] MEDS: traMADol HCl 50 MG TAB PO PRN ×2 (06:04→10:26)
[2020-07-24] MEDS: Propranolol 10 MG TAB PO SCH (08:28)
[2020-07-24] MEDS: Finasteride 5 MG TAB PO SCH (08:29)
[2020-07-24] MEDS: Folic Acid 1 MG TAB PO SCH (08:29)
[2020-07-24] MEDS: Tamsulosin HCl 0.4 MG CAP PO SCH (08:29)
[2020-07-24] MEDS: Spironolactone 25 MG TAB PO SCH (08:29)
[2020-07-24] MEDS: Thiamine 100 MG TAB PO SCH (08:31)
[2020-07-24] MEDS: Benzonatate 100 MG CAP PO SCH ×3 (08:32→20:25)
[2020-07-24] MEDS: Gabapentin 100 MG CAP PO SCH ×3 (08:32→20:25)
[2020-07-24] MEDS: Multivitamin W/ Minerals 1 TAB PO SCH (08:32)
[2020-07-24] MEDS: Furosemide 20 MG TAB PO SCH ×2 (08:33→14:11)
[2020-07-24] MEDS: Diazepam 5 MG TAB PO SCH (10:28)
[2020-07-24] MEDS: Polyethylene Glycol 3350 17 GM Packet PO SCH (10:31)
--- NOTE | 2020-07-24 12:07 | PDOC.HOSPP ---
- Subjective Encounter Date: 07/24/20 Encounter Time: 10:50 Subjective: Patient's abdomen is still distended and he is uncomfortable. Will try NG tube placement. He is agreeable. I discussed with RN. We will keep him n.p.o. and a NG tube with low intermittent wall suctioning. Maintenance IV fluid. He states that he is passing gas and had a bowel movement this morning. - Objective Vital Signs & Weight: Vital Signs (12 hours) Temp Pulse Resp BP BP BP Pulse Ox 07/24/20 08:16 98.6 F 105 H 20 119/84 93 L 07/24/20 08:00 94 L 07/24/20 05:25 95 07/24/20 05:04 98.2 F 105 H 22 H 118/73 95 07/24/20 04:00 124/72 Weight Weight 263 lb 0.007 oz I&O: 07/23/20 07/24/20 07/25/20 06:59 06:59 06:59 Intake Total 1999 1999 Output Total 400 Balance 1999 1600 Result Diagrams: 07/22/20 04:21 07/24/20 05:15 Hospitalist ROS - Medication Medications: Active Medications Generic Name Dose Route Start Last Admin Trade Name Freq PRN Reason Stop Dose Admin Hydrocodone Bitart/Acetaminophen 1 tab 07/21/20 11:31 07/24/20 02:36 [place] 10/325 PO 1 tab Q4H PRN Administration Pain Benzonatate 100 mg 07/20/20 15:00 07/24/20 08:32 Tessalon PO 100 mg TID IDANIA Administration Finasteride 5 mg 07/20/20 09:00 07/24/20 08:29 Proscar PO 5 mg DAILY IDANIA Administration Folic Acid 1 mg 07/17/20 09:00 07/24/20 08:29 Folvite PO 1 mg DAILY IDANIA Administration Furosemide 20 mg 07/22/20 14:00 07/24/20 08:33 Lasix PO 20 mg 0900,1400 IDANIA Administration Iron/Minerals/Multivitamins 1 tab 07/20/20 09:00 07/24/20 08:32 Theragran M PO 1 tab DAILY IDANIA Administration Miscellaneous Medication 25 mg 07/24/20 07:30 07/24/20 08:34 Movantik PO 25 mg DAILY-AC IDANIA Administration Polyethylene Glycol 17 gm 07/17/20 09:00 07/24/20 10:31 Miralax PO Not Given DAILY IDANIA Propranolol HCl 10 mg 07/23/20 09:00 07/24/20 08:28 Inderal PO 10 mg DAILY IDANIA Administration Simethicone 80 mg 07/21/20 15:33 07/21/20 17:27 Mylicon Chewable PO 80 mg PCHS PRN Administration Gas Pain Sodium Chloride 10 ml 07/18/20 09:00 07/24/20 10:32 Flush - Normal Saline IVF Not Given Q12HR IDANIA Sodium Chloride 10 ml 07/18/20 07:39 07/18/20 08:45 Flush - Normal Saline IVF 10 ml PRN PRN Administration Saline Flush Spironolactone 12.5 mg 07/23/20 08:00 07/24/20 08:29 Aldactone PO 12.5 mg QAM-WM IDANIA Administration Tamsulosin HCl 0.4 mg 07/20/20 09:00 07/24/20 08:29 Flomax PO 0.4 mg DAILY IDANIA Administration Thiamine HCl 100 mg 07/17/20 09:00 07/24/20 08:31 Thiamine PO 100 mg DAILY IDANIA Administration - Exam General Appearance: ill appearing General - other findings: Icteric Eye: PERRL, scleral icterus ENT: normocephalic atraumatic Neck: supple Heart: RRR Respiratory: CTAB, normal chest expansion Gastrointestinal: distended, diminished bowl sounds Neurological: no focal deficits, no new deficit Psychiatric: A&O x 3 Hosp A/P - Plan 44 years old gentleman, who has significant past medical history of alcohol abuse, alcohol induced pancreatitis, depression/PTSD, GERD, presented to the ED with 2 weeks history of abdominal pain and progressively worsened this morning. #Abdominal pain-unclear etiology, possible pancreatitis versus acalculus cholecystitis. No evidence of obstructions on CT #Mild pancreatitis-alcohol induced #Dyspnea may be related to his abdominal distention, Echo wnl. CXR no evidence of pleural effusion #Elevated LFT secondary to acute alcoholic hepatitis. Doubt cholangitis #Hyperbilirubinemia d/t alcoholic acute hepatitis. #Anemia, normocytic anemia #Alcohol abuse with history of alcohol withdrawal #Hepatic steatosis secondary to chronic alcohol abuse #GERD #BPH 22nd Possible cholestasis Alcoholic hepatitis -His abdomen is quite distended and tender to palpation. -There is a mild increase in his abdominal fluid/ascites -Patient has no previous history of paracentesis. -Repeat lipase only 59 --Start him on low-dose Lasix as follows Spironolactone if blood pressure allows. -Patient on propanolol will add holding parameters. Blood pressure on the lower side expected given his alcoholic hepatitis Decrease the sedative dose Librium being long-acting -switch to short-acting and a low-dose sedative and Ativan as needed Given the elevated alkaline phosphatase level around 300 representing cholestasis picture., Also his AST is 3 times higher than ALT consistent with alcoholic transaminitis Coagulopathy secondary to ongoing alcohol abuse Will provide him clear liquid diet as he does have ongoing abdominal pain even the lipase is negative. We will follow-up with a diagnostic paracentesis. -We will follow-up with the GI recommendations. Discussed with Dr. Linda today we will get the paracentesis Due to lack of enough fluid in the abdominal area, no diagnostic paracentesis. Hyperbilirubinemia Alcoholic hepatitis AFP is 2.2 alpha -antitrypsin level pending Follow the clinical progression. Abdomen is still distended. Started him on naloxegal for opioid induced ileus/ constipation. - he does have a significant history of alcohol induced withdrawal/seizure in the past. -He is on low-dose Valium which we will jin off I have discontinued all the scheduled sedatives for him and will provide as needed. He is also on several pain medications that has been discontinued. Abdominal distention due to above as well as cirrhosis. Patient's abdomen is still distended and he is uncomfortable. Will try NG tube placement. He is agreeable. I discussed with RN. We will keep him n.p.o. and a NG tube with low intermittent wall suctioning. Maintenance IV fluid.
[2020-07-24] MEDS: NS 0.9% w/ 20 MEQ KCL 1,000 ML/1,000 ML BAG IV SCH (14:15)
--- NOTE | 2020-07-24 14:34 | PRG ---
DATE OF SERVICE: 07/24/2020 REASON FOR CONSULTATION: Alcoholic hepatitis, pancreatitis, abdominal pain. SUBJECTIVE: The patient has had relatively no change in his right upper quadrant abdominal pain when compared to admission despite treatment for acute pancreatitis, alcoholic hepatitis and relatively negative findings on imaging concerning for cholecystitis. He continues to require kfxdaa-peh-nmvor narcotics with the use of both tramadol and hydrocodone. For the patient, he did have a small semi-solid bowel movement early this morning, but this was not confirmed with nursing staff. However, per nursing staff, he did refuse the MiraLAX this morning as well. Currently, he denies any nausea, vomiting, fevers, chills, hematemesis, melena, or hematochezia. OBJECTIVE: VITAL SIGNS: Temperature 98.6, pulse 105, blood pressure 119/84, respiratory rate 20, and saturating 93% on 2 L nasal cannula. GENERAL: The patient is lying in bed, in mild distress. Alert and oriented x4. CARDIOVASCULAR: Tachycardic rate, but regular rhythm. RESPIRATORY: Clear to auscultation bilaterally, but with tachypneic rate and increased pain with deep inspiration. ABDOMEN: Hypoactive bowel sounds. Moderate abdominal distention with tenderness to palpation in all abdominal quadrants. Tympanic to percussion. EXTREMITIES: 1+ bilateral lower extremity edema extending from his feet to mid jane. LABORATORY DATA: Chemistry with a sodium of 134, potassium 3.5, chloride 95, CO2 of 27, BUN 6, creatinine 0.68, and glucose 124. IMAGING DATA: No current studies are available for review. ASSESSMENT: 1. Mild uncomplicated pancreatitis, resolving. CT scans and serologies are not reflective of significant pancreatitis at this time, and as such, should have responded well to more conservative management at the beginning of his hospitalization. Most recent imaging showed no evidence of necrosis or abscess formation that could be contributing to the significant abdominal pain. His pancreatitis does not seem to be a clear etiology for his worsening abdominal pain. 2. Right upper quadrant/midepigastric abdominal pain. The patient continues to have significant midepigastric/right upper quadrant abdominal pain that was initially concerning for cholecystitis, although HIDA scan and CT scan obtained during this admission do not agree with this initial ultrasound finding. He continues to require significant amount of narcotic pain medications for relief with intermittent bowel habits, where the patient describes having a bowel movement, but nursing staff is not able to confirm this finding. Currently, the differential for his right upper quadrant abdominal pain could include medication-induced ileus secondary to narcotic administration, acute cholecystitis, continued pancreatitis despite more conservative management thus far, alcoholic hepatitis (less likely), possible gastroesophageal reflux disease and/or ischemia to the region (much less likely). RECOMMENDATIONS: 1. Agree with discontinuation of benzodiazepines as part of his alcohol withdrawal protocol as the patient should have already been through enough time to bring him through withdrawal symptoms. 2. Continue the patient on MiraLAX 1 to 2 times daily as part of bowel regimen. Please do not allow the patient to refuse. 3. Continue naloxegol 25 mg daily. 4. Pain control per primary team, but attempt to minimize narcotic administration. 5. Agree with placement of an NG tube for decompression of the upper GI tract in light of possible medication-induced ileus. 6. We would consult General Surgery for further evaluation of the patient and possible cholecystitis. We will continue to follow. Please call with any questions. Job ID: [id number]
--- NOTE | 2020-07-24 14:48 | RAD ---
KUB INDICATION: NG tube placement COMPARISON: None FINDINGS: Bowel gas: Nonspecific but without overt appearance of obstruction. There is some residual enteric co ntrast within colon and rectum. Gastric catheter projects in the region of the gastric body. Lung bases: Clear. Additional findings: No suspicious calcification demonstrated. Osseous structures: No acute osseous abnormality is demonstrated. IMPRESSION: 1. Gastric catheter tip projecting in the region of the gastric body.
[2020-07-24 15:03] LABS: HIV (1/2) Antibody/Antigen Non-Reactive (NonReactive); HIV 1/2 INDEX 0.22 S/CO (<1.00)
[2020-07-24] MEDS ORDERED: Thiamine HCl 200 MG/2 ML VIAL IM SCH (17:45)
[2020-07-24] MEDS ORDERED: Multivit, Adult Inj 10 ML VIAL IV SCH (17:45)
[2020-07-24] MEDS ORDERED: Sodium Chloride 0.9% (PF) 10 ML VIAL FS PRN (17:55)
[2020-07-24] MEDS: Multivitamins, Adult 10 ML, Folic Acid 1 MG, Thiamine HCl 100 MG in Dextrose 5 %-0.45 %... IV SCH (18:16)
[2020-07-24] MEDS: Pantoprazole 40 MG VIAL IVP SCH (20:25)
--- NOTE | 2020-07-24 20:35 | CON ---
DATE OF CONSULTATION: HISTORY OF PRESENT ILLNESS: Eligio Fields is a 44-year-old male, farm and ranch work, single, alcoholism, a pint of liquor a day, presents for admission to hospital on 07/16/2020 to the Hospitalist Service, seen this hospitalization by GI; Dr. Sanders, Dr. Burciaga, and Dr. Pfeiffer. He in fact was drinking at the time of admission. He complained of abdominal pain on admission and reported symptoms two weeks ago, dull aching pain with increased abdominal girth, worsening on the morning of admission. He has been evaluated this hospitalization with a CAT scan on 07/16/2020 abdomen and pelvis, aortic dissection protocol without oral contrast and repeat CAT scan 07/21/2020 because of persistent abdominal pain with oral and IV contrast. Both these CAT scans reveal umbilical hernia with fatty tissue, probable calculi in the urinary bladder, L5 pars defect. On both scans, he was noted hepatic steatosis with hepatomegaly with normal spleen, pancreas, adrenal glands, and kidneys. No peripancreatic inflammatory process or fluid collections. He is noted to have a development of a tiny left and small right pleural effusion. Atelectatic changes. There is a little fluid in the pelvis and lower abdomen. He is having a gallbladder ultrasound on 07/16/2020 noted to have contracted gallbladder with resultant thickened wall, some gallbladder sludge, but no gallstones. Gama sign was negative sonographically. There is some mild pericholecystic fluid. The portal vein could not be accurately assessed bile ducts. There is no hydronephrosis. The patient underwent hepatobiliary scan on 07/17/2020 noting absence of biliary obstruction. The gallbladder was visualized in 14 minutes and ejection fraction was 56%. The patient's white count on admission was 10.8 and is now 13, down from 16 yesterday. Differential is unremarkable. Hemoglobin was 9.8 on admission and 8.9 today. PT/INR 15 and 1.2 respectively. BUN and creatinine 6 and 0.68. His bilirubin on admission was 3.2 and is risen to 7. AST and ALT 107 and 27 and alkaline phosphatase 303, worsening up from admission to 85. Lipase is normal, currently slightly elevated in the 200 range on admission. Alpha fetoprotein is normal. ALLERGIES: ERYTHROMYCIN. SOCIAL HISTORY: Tobacco, none. Alcoholism as above. MEDICATIONS: At home; 1. Potassium. 2. Tylenol. 3. Thiamin. 4. Gabapentin. 5. Finasteride. 6. Zofran. 7. Multivitamins. 8. Flomax. 9. Protonix. In the hospital, same. Abdominal CAT scans did not reveal abdominal distention. He has not had any nausea significant. NG tube was placed to 65 cm nasally. He has had very little output. The patient complains of foot and ankle edema. PHYSICAL EXAMINATION: VITAL SIGNS: 6 feet and 263 pounds. 98.6, 105, and 119/84. LUNGS: Clear to auscultation. CARDIAC: Regular rate and rhythm. ABDOMEN: Protuberant, obese, markedly enlarged liver palpated in the upper abdomen tender over the upper abdomen. Lower Abdomen is soft. No fluid wave. EXTREMITIES: Edematous. ASSESSMENT AND PLAN: 1. Alcoholism and worsening bilirubin with normal HIDA scan, ultrasound and CAT scan without biliary ductal dilatation. Gallbladder wall seen is probably due to a contracted gallbladder and does not represent inflammation and mild pericholecystic fluid seen on ultrasound is probably a reflection of his liver disease. I suspect he has acute alcohol hepatitis, although his transaminases are not markedly elevated. His bilirubin is progressively worsening. There are no signs of biliary obstruction. No signs of acute biliary or gallbladder disease. The bile ducts were not adequately assessed on ultrasound. However, CAT scan did not reveal intrahepatic ductal dilatation. At this point, I do not think cholecystectomy is warranted or necessary. The etiology of his abdominal pain certainly, he has increased tenderness along his liver, left subcostal, right subcostal, liver extends down between the umbilicus and xiphoid, markedly enlarged, that can be palpated. The patient complains of central abdominal pain extending down to his left lower abdomen. There are no signs of cholecystitis. At this point, the etiology of his pain is uncertain. I am not sure if the NG tube will help. I would recommend 3-view abdominal x-rays in the morning. If NG tube output is not significant, I would remove it. Upper endoscopy could be considered as he could have peptic ulcer disease or gastritis, but I do not think operative intervention is warranted. 2. Alcoholism. 3. Malnourishment. 4. Hepatomegaly. 5. Gallbladder sludge, probably resultant from his alcoholism and alcohol liver disease.. Job ID: [id number]
[2020-07-24] MEDS ORDERED: HYDROcodone/Acetaminophen 5/325 mg Tablet PO SCH (23:45)
[2020-07-25] MEDS: Ketorolac Tromethamine 30 MG/ML VIAL IVP SCH ×4 (03:22→17:00)
[2020-07-25 06:12] LABS: Anion Gap 11 mmol/L (10-20); BUN (Urea Nitrogen) 6 mg/dL (8.9-20.6); Calc. Creatinine Clearance 220 mL/min (70-130); Calcium 8.2 mg/dL (7.8-10.44); Carbon Dioxide 30 mmol/L (22-29); Chloride 96 mmol/L (98-107); Estimated GFR-MDRD Greater than 90; Glucose 109 mg/dL (70-105); Potassium 3.2 mmol/L (3.5-5.1); Sodium 134 mmol/L (136-145)
[2020-07-25] MEDS: NS 0.9% w/ 20 MEQ KCL 1,000 ML/1,000 ML BAG IV SCH (08:20)
[2020-07-25] MEDS: Spironolactone 25 MG TAB PO SCH (09:15)
[2020-07-25] MEDS: Benzonatate 100 MG CAP PO SCH ×3 (09:15→20:03)
[2020-07-25] MEDS: Gabapentin 100 MG CAP PO SCH ×3 (09:15→20:03)
[2020-07-25] MEDS: Tamsulosin HCl 0.4 MG CAP PO SCH (09:15)
[2020-07-25] MEDS: Finasteride 5 MG TAB PO SCH (09:15)
[2020-07-25] MEDS: Pantoprazole 40 MG VIAL IVP SCH ×2 (09:16→20:04)
[2020-07-25] MEDS: Folic Acid 1 MG TAB PO SCH (09:16)
[2020-07-25] MEDS: Propranolol 10 MG TAB PO SCH (09:19)
--- NOTE | 2020-07-25 10:03 | RAD ---
XR Abdomen 2 View/1 View Cxr History: NG tube placement. Abdominal pain Comparison: Abdomen radiograph prior day Findings: Retained contrast within the pelvis and sigmoid colon. Surgical anusha along the left lowe r quadrant of the pelvis. Enteric tube tip at the gastric body. Left basilar airspace opacity. No pneumothorax. Impression: 1. Enteric tube tip at the gastric body. 2. Likely atelectasis left lung base.
[2020-07-25 10:40] LABS: Alpha-1-Antitrypsin 252 mg/dL (101-187)
--- NOTE | 2020-07-25 11:56 | PDOC.HOSPP ---
- Subjective Encounter Date: 07/25/20 Encounter Time: 10:10 Subjective: Since NG tube placement last evening he put out 750 mL of serosanguineous plus biliary fluid color combination. His abdomen however still distended very minimal improvement in the distention he still has discomfort. But he is tolerating the NG tube. His blood pressure remained stable on the low normal side. He is mildly tachycardic. Is satting 94% in the room air his electrolyte panel does not need to be replaced magnesium in the normal range. H white count is trending down. - Objective Vital Signs & Weight: Vital Signs (12 hours) Temp Pulse Resp BP BP BP Pulse Ox 07/25/20 11:45 99.5 F 87 20 100/65 97 07/25/20 09:21 94 L 07/25/20 08:30 97.9 F 102 H 20 115/82 94 L 07/25/20 05:23 98.3 F 88 24 H 107/70 94 L 07/25/20 04:00 107/70 07/24/20 23:55 110/72 07/24/20 23:54 98.8 F 98 20 110/72 96 Weight Weight 263 lb 0.007 oz I&O: 07/24/20 07/25/20 07/26/20 06:59 06:59 06:59 Intake Total 2000 2180 Output Total 400 970 Balance 1600 1210 Result Diagrams: 07/22/20 04:21 07/25/20 05:34 Hospitalist ROS - Medication Medications: Active Medications Generic Name Dose Route Start Last Admin Trade Name Freq PRN Reason Stop Dose Admin Acetaminophen 650 mg 07/16/20 16:33 07/24/20 20:25 Tylenol PO 650 mg Q4H PRN Administration Headache/Fever/Mild Pain (1-3) Benzonatate 100 mg 07/20/20 15:00 07/25/20 09:15 Tessalon PO 100 mg TID IDANIA Administration Finasteride 5 mg 07/20/20 09:00 07/25/20 09:15 Proscar PO 5 mg DAILY IDANIA Administration Folic Acid 1 mg 07/17/20 09:00 07/25/20 09:16 Folvite PO 1 mg DAILY IDANIA Administration Gabapentin 100 mg 07/24/20 15:00 07/25/20 09:15 Neurontin PO 100 mg TID IDANIA Administration Potassium Chloride/Sodium Chloride 1,000 ml in 1,000 mls @ 50 mls/hr 07/24/20 12:15 07/25/20 08:20 Ns 0.9% W/ 20 Meq Kcl IV 07/26/20 04:14 Not Given .Q20H IDANIA Multivitamins 10 ml/ Folic 1,011.2 mls @ 100 mls/hr 07/24/20 18:00 07/24/20 18:16 Acid 1 mg/ Thiamine HCl 100 mg IV 1,011.2 mls / Dextrose/Sodium Chloride Q24HR IDANIA Administration Ketorolac Tromethamine 30 mg 07/25/20 12:00 07/25/20 11:00 Toradol IVP 07/30/20 12:01 30 mg Q6HR IDANIA Administration Miscellaneous Medication 25 mg 07/24/20 07:30 07/25/20 09:15 Movantik PO 25 mg DAILY-AC IDANIA Administration Pantoprazole Sodium 40 mg 07/24/20 21:00 07/25/20 09:16 Protonix IVP 40 mg Q12HR IDANIA Administration Propranolol HCl 10 mg 07/23/20 09:00 07/25/20 09:19 Inderal PO 10 mg DAILY IDANIA Administration Simethicone 80 mg 07/21/20 15:33 07/21/20 17:27 Mylicon Chewable PO 80 mg PCHS PRN Administration Gas Pain Sodium Chloride 10 ml 07/18/20 09:00 07/25/20 09:16 Flush - Normal Saline IVF 10 ml Q12HR IDANIA Administration Sodium Chloride 10 ml 07/18/20 07:39 07/18/20 08:45 Flush - Normal Saline IVF 10 ml PRN PRN Administration Saline Flush Spironolactone 12.5 mg 07/23/20 08:00 07/25/20 09:15 Aldactone PO 12.5 mg QAM-WM IDANIA Administration Tamsulosin HCl 0.4 mg 07/20/20 09:00 07/25/20 09:15 Flomax PO 0.4 mg DAILY IDANIA Administration - Exam General Appearance: NAD, awake alert Eye: PERRL ENT: normocephalic atraumatic Neck: supple Heart: RRR Respiratory: CTAB, normal chest expansion Gastrointestinal: tender to palpation, distended Psychiatric: A&O x 3 Hosp A/P - Plan 44 years old gentleman, who has significant past medical history of alcohol abuse, alcohol induced pancreatitis, depression/PTSD, GERD, presented to the ED with 2 weeks history of abdominal pain and progressively worsened this morning. #Abdominal pain-unclear etiology, possible pancreatitis versus acalculus cholecystitis. No evidence of obstructions on CT #Mild pancreatitis-alcohol induced #Dyspnea may be related to his abdominal distention, Echo wnl. CXR no evidence of pleural effusion #Elevated LFT secondary to acute alcoholic hepatitis. Doubt cholangitis #Hyperbilirubinemia d/t alcoholic acute hepatitis. #Anemia, normocytic anemia #Alcohol abuse with history of alcohol withdrawal #Hepatic steatosis secondary to chronic alcohol abuse #GERD #BPH 22nd Possible cholestasis Alcoholic hepatitis -His abdomen is quite distended and tender to palpation. -There is a mild increase in his abdominal fluid/ascites -Patient has no previous history of paracentesis. -Repeat lipase only 59 --Start him on low-dose Lasix as follows Spironolactone if blood pressure allows. -Patient on propanolol will add holding parameters. Blood pressure on the lower side expected given his alcoholic hepatitis Decrease the sedative dose Librium being long-acting -switch to short-acting and a low-dose sedative and Ativan as needed Given the elevated alkaline phosphatase level around 300 representing cholestasis picture., Also his AST is 3 times higher than ALT consistent with alcoholic transaminitis Coagulopathy secondary to ongoing alcohol abuse Will provide him clear liquid diet as he does have ongoing abdominal pain even the lipase is negative. We will follow-up with a diagnostic paracentesis. -We will follow-up with the GI recommendations. Discussed with Dr. Linda today we will get the paracentesis Due to lack of enough fluid in the abdominal area, no diagnostic paracentesis. Hyperbilirubinemia Alcoholic hepatitis AFP is 2.2 alpha -antitrypsin level pending Follow the clinical progression. Abdomen is still distended. Started him on naloxegal for opioid induced ileus/ constipation. - he does have a significant history of alcohol induced withdrawal/seizure in the past. -He is on low-dose Valium which we will jin off I have discontinued all the scheduled sedatives for him and will provide as needed. He is also on several pain medications that has been discontinued. Abdominal distention due to above as well as cirrhosis. Patient's abdomen is still distended and he is uncomfortable. Will try NG tube placement. He is agreeable. I discussed with RN. We will keep him n.p.o. and a NG tube with low intermittent wall suctioning. Maintenance IV fluid. 25th So far NG tube put out 750 mL since the start. Running maintenance fluid. His abdomen however still distended very minimal improvement in the distention he still has discomfort. But he is tolerating the NG tube. His blood pressure remained stable on the low normal side. He is mildly tachycardic. Is satting 94% in the room air his electrolyte panel does not need to be replaced magnesium in the normal range. H white count is trending down. COVID negative Hepatitis C and B- HIV nonreactive SATHISH screen negative [id number] DNA titers does not seem to be very significant level so does smooth muscle antibody titer Plasmin titers insignificant However alpha 1 antitrypsin level titer level 252. This is a normal titer level only if it is deficient then we may need to consider about getting CT chest etc. but for alpha1 antitrypsin deficiency also ruled out He almost ran out of all differentials to find the etiology except hemochromatosis, it is very likely just alcoholic hepatitis Hypokalemia Potassium replaced. New diagnosis of hypothyroidism -Starting him on low-dose levothyroxine supplement -Needs follow-up with PCP in 2 to 3 weeks for repeat TSH free T4 and adjust the supplement dose. Reviewed the surgery note. No immediate surgical intervention as there is no indication with the common bile duct dilatation or cholecystitis. Patient is getting quite icterus day by day.
[2020-07-25] MEDS ORDERED: Potassium Citrate 10 MEQ TAB PO SCH (12:15)
[2020-07-25 13:21] LABS: ALT (SGPT) 28 U/L (8-55); AST (SGOT) 106 U/L (5-34); Albumin 2.7 g/dL (3.5-5.0); Alkaline Phosphatase 268 U/L (40-110); Bilirubin, Direct 4.8 mg/dL (0.1-0.3); Bilirubin, Total 6.3 mg/dL (0.2-1.2); Protein, Total 6.7 g/dL (6.0-8.3)
[2020-07-25] MEDS: Multivitamins, Adult 10 ML, Folic Acid 1 MG, Thiamine HCl 100 MG in Dextrose 5 %-0.45 %... IV SCH (17:58)
--- NOTE | 2020-07-25 18:12 | PRG ---
DATE OF SERVICE: 07/25/2020 SUBJECTIVE: Mr. Fields had abdominal x-rays that are unremarkable. NG tube is good in position. There was no bowel obstruction. There was no evidence of ileus. NG tube output has been over 500 since placement, but he is consuming ice chips and liquids. He had a bowel movement today. OBJECTIVE: LUNGS: Clear to auscultation. ABDOMEN: Soft. Protuberant upper abdomen due to hepatomegaly. Palpable liver down to his umbilicus. Abdomen lower is soft and nontender. Upper abdomen is tender over his liver. ASSESSMENT AND PLAN: Acute alcoholic hepatitis. The patient had continued drinking alcohol daily despite having upper abdominal pain, exacerbating his liver disease. His bilirubin continues to rise and for the last 20 hours, has finally leveled off hopefully. The patient has sludge in his gallbladder, but does not need a cholecystectomy. There is no ductal dilatation. The patient's liver function test, bilirubin elevation is due to alcoholic liver disease. At this point, we would recommend removing his NG tube, advancing diet as tolerated and await alcohol cessation. No indication for surgery at this time. At this point, I will see the patient as needed. Please call if necessary. Job ID: [id number]
[2020-07-25] MEDS: Propranolol 40 MG TAB PO SCH (20:03)
[2020-07-25] MEDS ORDERED: HYDROcodone/Acetaminophen 7.5/325 mg Tablet PO SCH (20:30)
[2020-07-26] MEDS: Ketorolac Tromethamine 30 MG/ML VIAL IVP SCH ×3 (00:34→11:36)
[2020-07-26] MEDS: Levothyroxine Sodium 50 MCG TAB PO SCH (05:51)
[2020-07-26 06:13] LABS: Anion Gap 12 mmol/L (10-20); BUN (Urea Nitrogen) 9 mg/dL (8.9-20.6); Calc. Creatinine Clearance 191 mL/min (70-130); Carbon Dioxide 30 mmol/L (22-29); Chloride 98 mmol/L (98-107); Estimated GFR-MDRD Greater than 90; Glucose 100 mg/dL (70-105); Potassium 3.4 mmol/L (3.5-5.1); Sodium 137 mmol/L (136-145)
[2020-07-26 06:18] LABS: ALT (SGPT) 28 U/L (8-55); AST (SGOT) 116 U/L (5-34); Albumin 2.5 g/dL (3.5-5.0); Alkaline Phosphatase 235 U/L (40-110); Bilirubin, Direct 5.3 mg/dL (0.1-0.3); Bilirubin, Total 6.8 mg/dL (0.2-1.2); Protein, Total 6.3 g/dL (6.0-8.3)
--- NOTE | 2020-07-26 08:38 | PRG ---
DATE OF SERVICE: 07/25/2020 SUBJECTIVE: Mr. Fields still has some abdominal discomfort. He is having bowel movements. He has had no vomiting. He has had minimal NG tube output. Dr. Weathers saw him, does not think he needs a surgery nor has an ileus. He has had minimal output. He recommends starting him on a diet. MEDICATIONS: 1. P.r.n. Tylenol. 2. Dulcolax. 3. Proscar. 4. Folic acid. 5. Gabapentin. 6. Toradol. 7. Synthroid. 8. P.r.n. Ativan. 9. Movantik. 10. Zofran p.r.n. 11. Protonix 40 p.o. q.12 hours. 12. Normal saline at 50. 13. Propranolol. 14. Senokot. 15. Simethicone. 16. Spironolactone 12.5 mg daily. OBJECTIVE: VITAL SIGNS: Pulse 86, temperature 98, blood pressure 92/61, weight not repeated since the , it was 263. LUNGS: Clear. HEART: Regular without clicks or murmurs. ABDOMEN: Soft. He has massive hepatomegaly with liver coming down to the umbilicus on both sides of his abdomen. EXTREMITIES: Reveal trace edema. LABORATORY DATA: Sodium 134, potassium 3.2, chloride 96, bicarb 30, BUN and creatinine are 6 and 0.73, bilirubin 6.3, AST is 106 down from 181 on 07/16, and ALT is 28 down from 46 on 07/16. Albumin is 2.7. Protein is 6.7. Serologic workup for liver disease, negative for alpha-1 antitrypsin, negative for iron overload, negative for Shahram's disease, negative for hepatitis A, B, and C. Triglycerides were 385, cholesterol 168. Hepatoma screening was negative. No liver masses were seen on MRI imaging. ASSESSMENT: 1. Severe alcoholic hepatitis. 2. Massive hepatomegaly. This is probably alcoholic hepatitis. The only thing that really has not been checked is amyloidosis, probably should go ahead and check a SPEP and a UPEP on him. No liver masses are seen. We will review films with the radiologist to make sure, but I do not think there is any kind of infiltrative process that would necessitate biopsying or looking at other etiologies to the massive hepatomegaly. RECOMMENDATIONS: Discontinue NG tube. Start sodium diet. Out of bed daily. Wean narcotics. Discharge home soon. Job ID: [id number]
[2020-07-26] MEDS: Pantoprazole 40 MG VIAL IVP SCH (09:18)
[2020-07-26] MEDS: Thiamine 100 MG TAB PO SCH (09:28)
[2020-07-26] MEDS: Finasteride 5 MG TAB PO SCH (09:28)
[2020-07-26] MEDS: Gabapentin 100 MG CAP PO SCH ×3 (09:28→20:33)
[2020-07-26] MEDS: Tamsulosin HCl 0.4 MG CAP PO SCH (09:29)
[2020-07-26] MEDS: Benzonatate 100 MG CAP PO SCH ×3 (09:29→20:33)
[2020-07-26] MEDS: Folic Acid 1 MG TAB PO SCH (09:29)
[2020-07-26] MEDS: Spironolactone 25 MG TAB PO SCH (09:30)
[2020-07-26] MEDS: Propranolol 10 MG TAB PO SCH (09:45)
[2020-07-26] MEDS: Propranolol 40 MG TAB PO SCH (11:34)
[2020-07-26] MEDS ORDERED: Lorazepam 1 MG TAB PO PRN (11:36)
--- NOTE | 2020-07-26 11:41 | PDOC.HOSPP ---
- Subjective Encounter Date: 07/26/20 Encounter Time: 09:40 Subjective: Patient is tolerating his diet. However he says that he is aching all over. Discharge plan discussed with him plan for discharge tomorrow. DC IV pain medications and started him as needed [place]. - Objective Vital Signs & Weight: Vital Signs (12 hours) Temp Pulse Resp BP BP Pulse Ox 07/26/20 08:00 92 L 07/26/20 07:57 99.1 F 85 20 102/66 92 L 07/26/20 04:35 99.1 F 84 18 96/65 91 L Weight Weight 263 lb 0.007 oz I&O: 07/25/20 07/26/20 07/27/20 06:59 06:59 06:59 Intake Total 2180 2060 Output Total 970 200 Balance 1210 1860 Result Diagrams: 07/22/20 04:21 07/26/20 05:11 Hospitalist ROS - Medication Medications: Active Medications Generic Name Dose Route Start Last Admin Trade Name Freq PRN Reason Stop Dose Admin Acetaminophen 650 mg 07/16/20 16:33 07/24/20 20:25 Tylenol PO 650 mg Q4H PRN Administration Headache/Fever/Mild Pain (1-3) Benzonatate 100 mg 07/20/20 15:00 07/26/20 09:29 Tessalon PO 100 mg TID IDANIA Administration Finasteride 5 mg 07/20/20 09:00 07/26/20 09:28 Proscar PO 5 mg DAILY IDANIA Administration Folic Acid 1 mg 07/17/20 09:00 07/26/20 09:29 Folvite PO 1 mg DAILY IDANIA Administration Multivitamins 10 ml/ Folic 1,011.2 mls @ 100 mls/hr 07/24/20 18:00 07/25/20 17:58 Acid 1 mg/ Thiamine HCl 100 mg IV 1,011.2 mls / Dextrose/Sodium Chloride Q24HR IDANIA Administration Levothyroxine Sodium 50 mcg 07/26/20 06:00 07/26/20 05:51 Synthroid PO 50 mcg 0600 IDANIA Administration Miscellaneous Medication 25 mg 07/24/20 07:30 07/25/20 09:15 Movantik PO 25 mg DAILY-AC IDANIA Administration Pantoprazole Sodium 40 mg 07/25/20 21:00 07/26/20 09:28 Protonix PO 40 mg BID IDANIA Administration Propranolol HCl 10 mg 07/23/20 09:00 07/26/20 09:45 Inderal PO 10 mg DAILY IDANIA Administration Propranolol HCl 40 mg 07/25/20 21:00 07/25/20 20:03 Inderal PO 40 mg BID IDANIA Administration Simethicone 80 mg 07/21/20 15:33 07/21/20 17:27 Mylicon Chewable PO 80 mg PCHS PRN Administration Gas Pain Sodium Chloride 10 ml 07/18/20 09:00 07/25/20 20:04 Flush - Normal Saline IVF Not Given Q12HR IDANIA Sodium Chloride 10 ml 07/18/20 07:39 07/18/20 08:45 Flush - Normal Saline IVF 10 ml PRN PRN Administration Saline Flush Spironolactone 12.5 mg 07/23/20 08:00 07/26/20 09:30 Aldactone PO 12.5 mg QAM-WM IDANIA Administration Tamsulosin HCl 0.4 mg 07/20/20 09:00 07/26/20 09:29 Flomax PO 0.4 mg DAILY IDANIA Administration Thiamine HCl 100 mg 07/26/20 09:00 07/26/20 09:28 Thiamine PO 100 mg DAILY IDANIA Administration - Exam General Appearance: NAD, awake alert Eye: PERRL ENT: normocephalic atraumatic Neck: supple Heart: RRR Respiratory: CTAB Gastrointestinal: distended Neurological: no focal deficits Psychiatric: A&O x 3 Hosp A/P - Plan 44 years old gentleman, who has significant past medical history of alcohol abuse, alcohol induced pancreatitis, depression/PTSD, GERD, presented to the ED with 2 weeks history of abdominal pain and progressively worsened this morning. #Abdominal pain-unclear etiology, possible pancreatitis versus acalculus cholecystitis. No evidence of obstructions on CT #Mild pancreatitis-alcohol induced #Dyspnea may be related to his abdominal distention, Echo wnl. CXR no evidence of pleural effusion #Elevated LFT secondary to acute alcoholic hepatitis. Doubt cholangitis #Hyperbilirubinemia d/t alcoholic acute hepatitis. #Anemia, normocytic anemia #Alcohol abuse with history of alcohol withdrawal #Hepatic steatosis secondary to chronic alcohol abuse #GERD #BPH 22nd Possible cholestasis Alcoholic hepatitis -His abdomen is quite distended and tender to palpation. -There is a mild increase in his abdominal fluid/ascites -Patient has no previous history of paracentesis. -Repeat lipase only 59 --Start him on low-dose Lasix as follows Spironolactone if blood pressure allows. -Patient on propanolol will add holding parameters. Blood pressure on the lower side expected given his alcoholic hepatitis Decrease the sedative dose Librium being long-acting -switch to short-acting and a low-dose sedative and Ativan as needed Given the elevated alkaline phosphatase level around 300 representing cholestasis picture., Also his AST is 3 times higher than ALT consistent with alcoholic transaminitis Coagulopathy secondary to ongoing alcohol abuse Will provide him clear liquid diet as he does have ongoing abdominal pain even the lipase is negative. We will follow-up with a diagnostic paracentesis. -We will follow-up with the GI recommendations. Discussed with Dr. Linda today we will get the paracentesis Due to lack of enough fluid in the abdominal area, no diagnostic paracentesis. Hyperbilirubinemia Alcoholic hepatitis AFP is 2.2 alpha -antitrypsin level pending Follow the clinical progression. Abdomen is still distended. Started him on naloxegal for opioid induced ileus/ constipation. - he does have a significant history of alcohol induced withdrawal/seizure in the past. -He is on low-dose Valium which we will jin off I have discontinued all the scheduled sedatives for him and will provide as needed. He is also on several pain medications that has been discontinued. Abdominal distention due to above as well as cirrhosis. Patient's abdomen is still distended and he is uncomfortable. Will try NG tube placement. He is agreeable. I discussed with RN. We will keep him n.p.o. and a NG tube with low intermittent wall suctioning. Maintenance IV fluid. So far NG tube put out 750 mL since the start. Running maintenance fluid. His abdomen however still distended very minimal improvement in the distention he still has discomfort. But he is tolerating the NG tube. His blood pressure remained stable on the low normal side. He is mildly tachycardic. Is satting 94% in the room air his electrolyte panel does not need to be replaced magnesium in the normal range. H white count is trending down. COVID negative Hepatitis C and B- HIV nonreactive SATHISH screen negative Ciki-hqkngo-ycagmvtj DNA titers does not seem to be very significant level so does smooth muscle antibody titer Plasmin titers insignificant However alpha 1 antitrypsin level titer level 252. This is a normal titer level only if it is deficient then we may need to consider about getting CT chest etc. but for alpha1 antitrypsin deficiency also ruled out He almost ran out of all differentials to find the etiology except hemochromatosis, it is very likely just alcoholic hepatitis Hypokalemia Potassium replaced. New diagnosis of hypothyroidism -Starting him on low-dose levothyroxine supplement -Needs follow-up with PCP in 2 to 3 weeks for repeat TSH free T4 and adjust the supplement dose. Reviewed the surgery note. No immediate surgical intervention as there is no indication with the common bile duct dilatation or cholecystitis. Patient is getting quite icterus day by day. Patient is usually on a low borderline blood pressure putting him on propanolol 40 twice a day may put him on risk for hemodynamic instability. Patient states that he is aching all over. The discharge plan discussed. Tentative discharge for tomorrow. He is agreeable. We will follow-up with the amyloid work-up. Surgery signed off. Transitioning him to p.o. pain medications. Gabapentin for neuropathy pain. Stool softeners. He needs to go with the Lasix Spironolactone and propanolol.
--- NOTE | 2020-07-26 12:41 | PRG ---
DATE OF SERVICE: 07/26/2020 SUBJECTIVE: The patient continues to have his chronic abdominal pain. He has nausea, but no vomiting since the NG tube was pulled. He is unhappy with his pain medication regimen. No new problem or symptoms. PHYSICAL EXAMINATION: VITAL SIGNS: Temperature is 98.5, blood pressure 102/68, pulse of 88. GENERAL: He is alert, not very conversant. HEENT: Showed mildly icteric sclerae. NECK: Very supple. CV: Shows normal S1 and S2, regular rate and rhythm. CHEST: Shows a breath sound. ABDOMEN: Very protuberant, but no tympany. No elicited tenderness on palpation. Has active bowel sounds. EXTREMITIES: Showed no edema. LABORATORY DATA: Electrolytes within normal range. Creatinine 0.84. Bilirubin 6.8, AST 116, ALT of 28, alkaline phosphatase 235. ASSESSMENT: 1. Abdominal pain, negative workup with CT x2, ultrasound, and HIDA scan. His pain is most likely from severe hepatomegaly causing capsular enlargement. Review of his CT showed massive hepatomegaly with the right lobe extending below the umbilicus and left lobe extending all the way to the right lateral abdominal wall. 2. Alcoholic liver disease with ongoing alcohol consumption. RECOMMENDATIONS: 1. Agree with transitioning to oral pain medication. 2. Alcohol abstinence again discussed with the patient. I emphasized with him the complete abstinence is the john to reducing his massive hepatomegaly, which in turn will alleviate his chronic abdominal pain. 3. He can be discharged to home tomorrow. GI service will sign off for now as there is no other recommendation. Please call if needed. Job ID: [id number] MTDD
--- NOTE | 2020-07-26 15:17 | EKG ---
Test Reason : Blood Pressure : / mmHG Vent. Rate : 128 BPM Atrial Rate : 128 BPM P-R Int : 140 ms QRS Dur : 086 ms QT Int : 322 ms P-R-T Axes : 068 004 056 degrees QTc Int : 470 ms Sinus tachycardia Minimal voltage criteria for LVH, may be normal variant Borderline ECG Confirmed by TENISHA RIOS DO ([id number]), desk editor RAMAN JUNE ([id number] on 07/26/2020 3:16:37 PM Referred By: Confirmed By:TENISHA RIOS DO
[2020-07-26] MEDS: HYDROcodone/Acetaminophen 5/325 mg Tablet PO PRN ×2 (15:55→20:41)
[2020-07-26] MEDS: Multivitamins, Adult 10 ML, Folic Acid 1 MG, Thiamine HCl 100 MG in Dextrose 5 %-0.45 %... IV SCH (18:19)
[2020-07-27] MEDS: HYDROcodone/Acetaminophen 5/325 mg Tablet PO PRN ×2 (03:56→09:21)
[2020-07-27] MEDS: Levothyroxine Sodium 50 MCG TAB PO SCH (06:24)
[2020-07-27 07:14] VITALS: BP 100/61; TEMP 98.6
[2020-07-27] MEDS ORDERED: Propranolol 10 MG TAB PO SCH (09:00)
[2020-07-27] MEDS: Benzonatate 100 MG CAP PO SCH (09:16)
[2020-07-27] MEDS: Thiamine 100 MG TAB PO SCH (09:16)
[2020-07-27] MEDS: Gabapentin 100 MG CAP PO SCH (09:16)
[2020-07-27] MEDS: Finasteride 5 MG TAB PO SCH (09:16)
[2020-07-27] MEDS: Folic Acid 1 MG TAB PO SCH (09:16)
[2020-07-27] MEDS: Tamsulosin HCl 0.4 MG CAP PO SCH (09:16)
[2020-07-27] MEDS: Spironolactone 25 MG TAB PO SCH (09:17)
--- NOTE | 2020-07-28 06:55 | DIS ---
DATE OF ADMISSION: 07/16/2020 DATE OF DISCHARGE: 07/27/2020 DISCHARGE DIAGNOSES: 1. Abdominal pain secondary to chronic alcohol abuse and mild pancreatitis. 2. Dyspnea secondary to abdominal distention. Echo is normal. Chest x-ray without pleural effusion. 3. Alcoholic hepatitis. 4. Hyperbilirubinemia. 5. Normocytic anemia of chronic disease. 6. History of alcohol withdrawal. 7. Gastroesophageal reflux disease. 8. Benign prostatic hypertrophy. 9. Hypothyroidism. These are the pertinents lab workup during this hospitalization, COVID negative. Hepatitis C and B negative. HIV nonreactive. SATHISH screen negative. Anti-double stranded DNA titers not significant level. Alpha-1 antitrypsin level also in the normal range of 252 titers and not deficient. Smooth muscle antibody titers level insignificant. CONSULT: GI consult. PHYSICAL EXAMINATION: GENERAL: On the day of discharge, the patient is resting. He does look very icteric, but he is mentally at his baseline. He is ambulating without any respiratory distress. Discharge plan discussed including giving only very short course of Ultram. The patient is agreeable for the discharge plan. I talked with the family preservation caseworker regarding possible home health service; however, the patient declined the offer and declined the help. HEENT: The patient is icteric. ABDOMEN: His abdominal distention seems to be better. He has good bowel sounds. CARDIOVASCULAR: Regular rate and rhythm without murmurs, rubs, or gallops. LUNGS: Clear. HOSPITAL COURSE: This is a 44-year-old male with significant history of alcohol abuse and withdrawal symptoms in the past, admitted on July 16 with abdominal distention and dull-aching pain. We did several studies. They all turned out to be negative. The patient does have massive hepatomegaly probably secondary to ongoing alcohol consumption. The right lobe extending below the umbilicus and the left lobe extending all the way to the right lateral abdominal wall. We had several workups including imaging studies, CT x2 negative for any common bile duct dilatation or gallbladder abnormality. HIDA scan did show normal gallbladder EF. The abdominal CT showed very little ascites. I approached IR for any diagnostic paracentesis and it was not amenable for that. Also, low threshold for spontaneous bacterial peritonitis, even though abdomen is distended. We did try a brief trial of NG tube insertion, for which we got about 750 mL of sero-bilious fluid. It did not make a huge difference in his abdominal distention. He is also quite icteric again. Hopefully, this will slowly calm down since his total bili is 6.8, direct bili5.3, his alkaline phosphatase 235, and AST 116 with ALT of 28. We even consulted General Surgery for any cholangitis picture and clinically it did not look, so no surgical intervention. The patient is discharged with appropriate medications for cirrhosis related. He is hemodynamically stable to be discharged home today. The patient did ask for several rounds of pain medications during his stay for generalized body ache and received [place]. Discharged with Ultram few doses and he should follow up with the primary care physician if he needs any more analgesic. DISCHARGE MEDICATIONS: 1. Folic acid 1 mg daily. 2. Gabapentin 100 mg 3 times a day. 3. Levothyroxine 50 mcg daily. 4. Protonix 40 mg daily. 5. Spironolactone 12.5 mg daily. 6. Propranolol 10 mg twice a day. 7. Tramadol 50 mg q.12 hours as needed for 5 days. I have given 10 tablets. 8. Zofran 4 mg q.6 hours as needed. 9. Multivitamin daily. 10. Ferrous gluconate 324 mg daily. 11. Vitamin D2 89195 units every 7 days. 12. Thiamine 100 mg daily. 13. Tamsulosin 0.4 mg daily. I have discontinued his home regimen of propranolol 40 mg twice a day, as he had low borderline blood pressure. I also discontinued his potassium supplement, as he is going to go home with spironolactone. Also, gabapentin reduced from 200 to 100 mg 3 times a day given his intermittent somnolence. PCP follow up in 1 week. Regular diet. Discharge time took over 35 minutes. Job ID: [id number] [facility]
[2020-07-28 13:12] LABS: A/G Ratio 0.6 (0.7-1.7); Alpha 1 0.4 g/dL (0.0-0.4); Alpha 2 0.7 g/dL (0.4-1.0); Beta 1.1 g/dL (0.7-1.3); Gamma 1.4 g/dL (0.4-1.8); Globulin, Total 3.6 g/dL (2.2-3.9); M-Spike Not Observed g/dL (Not Observed); Protein Electrophoresis Intrp Note: (.)
== END 2020-07-27 14:31 | disposition home or self-care (01) | DRG 896 ==
LOC: ERS 11:12 → ERHOLD 16:40 → 2SE 07-17 01:39 → T4-A 07-19 11:50
PROVIDERS: ADMIT Family Medicine; ATTEND Family Medicine
DX: F10.239 Alcohol dependence with withdrawal, unspecified (principal); K85.20 Alcohol induced acute pancreatitis without necrosis or infection; K56.7 Ileus, unspecified; E87.1 Hypo-osmolality and hyponatremia; E46 Unspecified protein-calorie malnutrition; D68.8 Other specified coagulation defects; D63.8 Anemia in other chronic diseases classified elsewhere; N40.0 Benign prostatic hyperplasia without lower urinary tract symptoms; E03.9 Hypothyroidism, unspecified; Z20.828 Contact with and (suspected) exposure to other viral communicable diseases; F43.10 Post-traumatic stress disorder, unspecified; K70.11 Alcoholic hepatitis with ascites; F32.9 Major depressive disorder, single episode, unspecified; R63.0 Anorexia; G47.00 Insomnia, unspecified; F17.210 Nicotine dependence, cigarettes, uncomplicated; K21.0 Gastro-esophageal reflux disease with esophagitis; E66.9 Obesity, unspecified; G62.9 Polyneuropathy, unspecified; K76.0 Fatty (change of) liver, not elsewhere classified; F41.9 Anxiety disorder, unspecified; Z90.49 Acquired absence of other specified parts of digestive tract; Z88.1 Allergy status to other antibiotic agents; Z79.899 Other long term (current) drug therapy; Z68.35 Body mass index [BMI] 35.0-35.9, adult; T40.2X5A Adverse effect of other opioids, initial encounter; K59.00 Constipation, unspecified; E87.6 Hypokalemia
CPT/HCPCS: 36415; 71045; 74018; 74022; 74177; 76705; 78227; 80048; 80053; 80061; 80074; 80076; 81003; 81015; 82010; 82103; 82104; 82105; 82140; 82150; 82247; 82274; 82390; 82607; 82728; 82746; 83516; 83540; 83550; 83605; 83615; 83690; 83735; 83880; 84100; 84165; 84443; 85025; 85610; 86038; 86140; 86225; 87040; 87086; 87389; 87635; 93005; 93306; 96361; 96365; 96367; 96375; 96376; A9537; C9113; J0692; J1885; J1940; J1956; J2060; J2270; J2405; J3010; J3411; J3475; J3480; J7042; J7050; J7799; Q9967; U0003